=== PATIENT | female | born 1940 | race Caucasian/White ===

== ENCOUNTER 2020-04-22 18:48 | Inpatient (IN) | payer OTHER ==
[2020-04-22 19:00] VITALS: BMI 43.9
[2020-04-22] MEDS ORDERED: ASPIRIN 81 MG CHEWABLE TABLETS PO ONE (19:13)
--- OUTSIDE RECORDS SUMMARY | 2020-04-22 19:21 | XMS ---
:1940 Author Organization [facility] Support Name Relationship Address Phone RE Unavailable Unavailable Unavailable MOLLY DE JESUS DAUGHTER [address] [place] [address] Re-disclosure Warning The records that you are about to access may contain information from federally- assisted alcohol or drug abuse programs. If such information is present, then the following federally mandated warning applies: This information has been disclosed to you from records protected by federal confidentiality rules (42 CFR part 2). The federal rules prohibit you from making any further disclosure of this information unless further disclosure is expressly permitted by the written consent of the person to whom it pertains or as otherwise permitted by 42 CFR part 2. A general authorization for the release of medical or other information is NOT sufficient for this purpose. The Federal rules restrict any use of the information to criminally investigate or prosecute any alcohol or drug abuse patient.The records that you are about to access may contain highly sensitive health information, the redisclosure of which is protected by Article 27-F of the [facility] Public Health law. If you continue you may haveaccess to information: Regarding HIV / AIDS; Provided by facilities licensed or operated by the [facility] Office of Mental Health; or Provided by the [facility] Office for People With Developmental Disabilities. If such information is present, then the following [facility] mandated warning applies: This information has been disclosed to you from confidential records which are protected by state law. State law prohibits you from making any further disclosure of this information without the specific written consent of the person to whom it pertains, or as otherwise permitted by law. Any unauthorized further disclosure in violation of state law may result in a fine or correction sentence or both. A general authorization for the release of medical or other information is NOT sufficient authorization for further disclosure. Insurance Providers Payer name Policy type Policy ID Covered Covered constitution party's Policy P josefina / Coverage constitution party ID relationship to [facility] ormation type garcia MEDICAID [id number] SP [id number] [place] [id number] 800 HEALTHCARE (MEDICARE) [place] [id number] 4 HEALTHCARE (MEDICARE)
--- NOTE | 2020-04-22 19:31 | PDOC ---
Documentation entered by Leonila De La Garza SCRIBE, acting as scribe for Naya Lawson MD. Naya Lawson MD: This documentation has been prepared by the Frederic ferrell Brenda, SCRIBE, under my direction and personally reviewed by me in its entirety. I confirm that the documentation accurately reflects all work, treatment, procedures, and medical decision making performed by me. Attending Attestation - Resident Resident Name: Balaji Boudreaux - ED Attending Attestation I have performed the following: I have examined & evaluated the patient, The case was reviewed & discussed with the resident, I agree w/resident's findings & plan, Exceptions are as noted - HPI HPI: 04/22/20 19:26 This 80 yo female brought in by family member because this pt woke up this afternoon and experienced shortness of breath and midsternal chest pain PMH: Valve replacement in 2014 - Physicial Exam PE: 04/22/20 19:28 Obese 80 yo female with chest pain head ncat neck supple lungs no rales cvs [id number] abdomen protuberant skin warm and dry extremities LLE neuro alert and conversant - Medical Decision Making 04/22/20 19:30 medications metoprolol,ASA,lasix,losarten -swing manager is at [facility] 04/22/20 19:31 Ekg NSR @ 84 bpm, nonspecific ST and T wave abnormality 04/22/20 19:31 pulse ox =92% on room air 04/22/20 21:41 CXR CM,+congestion I spoke with her PCP Dr Arthur Arcos who requested to admit this pt to him for telemetry Concern for CHF,ACS,PNA,COVID plan - Lasix 40 mg IV, - covid swab, - pt took aspirin 325mg Consult with Dr Alvarez ordered Discharge - Discharge Information Problems reviewed: Yes Clinical Impression/Diagnosis: Shortness of breath, Chest pain - Follow up/Referral - Patient Discharge Instructions - Post Discharge Activity
--- NOTE | 2020-04-22 19:58 | PDOC ---
History of Present Illness - General History Source: Patient, Family Exam Limitations: No Limitations - History of Present Illness Initial Comments: 04/22/20 20:13 80F PMH PPM and valve replacement and repair (unsure which, [facility]) presenting with shortness of breath and pleuritic chest pain around the supraepigastric area described as band like and as if it were a muscle pull. Pt started experiencing symptoms after waking up from a nap, did not take anything for symptoms thinking it would resolve. Pain 7/10 now. Takes ASA 325 daily. Endorses mild nausea. Endorsing dry cough for about a week and SOB with walking. No sick contacts or group catholic. Denies f/c, vision/hearing changes, headache, numbness, tingling, weakness, lightheadedness. Has chronic swelling of the legs but is no worse than normal. No personal hx malignancy or VTEs. PCP Arthur Arcos. Accompanied by daughter. <Balaji Boudreaux - Last Filed: 04/25/20 02:42> <Naya Lawson - Last Filed: 04/27/20 17:26> - General Chief Complaint: Shortness of Breath Stated Complaint: DIFFICULTY BREATHING Time Seen by Provider: 04/22/20 19:07 Past History - Psycho-Social/Smoking History Smoking History: Unknown if ever smoked <Balaji Boudreaux - Last Filed: 04/25/20 02:42> <Naya Lawson - Last Filed: 04/27/20 17:26> - Medical History Allergies/Adverse Reactions: Allergies Allergy/AdvReac Type Severity Reaction Status Date / Time No Known Allergies Allergy Verified 04/27/20 11:46 Home Medications: Ambulatory Orders Aspirin/Calcium Carbonate [Pedrito Women's Aspirin Tablet] 1 each PO 04/23/20 Furosemide 20 mg PO 04/23/20 Metoprolol Succinate 100 mg PO 04/23/20 Review of Systems - Review of Systems Comments:: CONSTITUTIONAL: Denies F / C; Denies fatigue HEENT: Denies headache, lightheadedness, dizziness, changes in vision / hearing RESP: + SOB, MERLOS, dry cough CARD: + pleuritic chest pain GI: + Mild nausea. Denies V / D, abdominal pain, inability to tolerate PO : Denies dysuria NEURO: Denies numbness, tingling, weakness MSK: Denies back pain SKIN: Denies rashes <Balaji Boudreaux - Last Filed: 04/25/20 02:42> *Physical Exam - Vital Signs Last Vital Signs Temp Pulse Resp BP Pulse Ox 94 H 30 H 144/79 86 L 04/22/20 18:58 04/22/20 18:58 04/22/20 18:58 04/22/20 18:58 - Physical Exam GEN: NAD, comfortable. AAOx3. HEENT: NC/AT, EOMI, PERRL. No facial asymmetry. Moist mucous membranes. Normal voice. Supple neck w/ FROM. CV: S1/S2, RRR, + murmur LUNG: Nonlabored breathing at rest. CTAB, no wheezes, crackles, rales, rhonchi. GI: Soft, ndnt, +BS, no guarding, no rebound. MSK: 1+ b/l pitting edema (chronic per patient). No obvious deformities of all extremities. SKIN: Warm, dry, no rashes appreciated. PSYCH: Normal mood and affect. NEURO: Moving all extremities well. <Balaji Boudreaux - Last Filed: 04/25/20 02:42> - Vital Signs Last Vital Signs Temp Pulse Resp BP Pulse Ox 98.3 F 90 20 116/64 98 04/27/20 14:00 04/27/20 14:00 04/27/20 09:00 04/27/20 14:00 04/27/20 09:00 <Naya Lawson - Last Filed: 04/27/20 17:26> ED Treatment Course - LABORATORY CBC & Chemistry Diagram: 04/24/20 05:34 04/24/20 05:34 - RADIOLOGY Radiology Studies Ordered: Category Date Time Status CHEST X-RAY PORTABLE* [RAD] Stat Radiology 04/22/20 19:13 Taken - Medications Given in the ED: ED Medications Discontinued Medications Generic Name Dose Route Start Last Admin Trade Name Freq PRN Reason Stop Dose Admin Aspirin 162 mg 04/22/20 19:13 04/22/20 19:44 Asa - PO 04/22/20 19:14 Not Given ONCE ONE <Balaji Boudreaux - Last Filed: 04/25/20 02:42> - LABORATORY CBC & Chemistry Diagram: 04/25/20 06:05 04/26/20 06:15 - ADDITIONAL ORDERS Additional order review: 04/22/20 19:56 RBC 4.87 MCV 62.5 L MCHC 31.1 L RDW 17.1 H MPV 10.5 Neutrophils % 83.7 H Lymphocytes % 7.1 L Monocytes % 5.9 Eosinophils % 2.3 Basophils % 1.0 - Medications Given in the ED: ED Medications Discontinued Medications Generic Name Dose Route Start Last Admin Trade Name Freq PRN Reason Stop Dose Admin Acetaminophen 1,000 mg 04/23/20 04:07 04/23/20 04:42 Ofirmev Injection - IVPB 04/23/20 04:08 1,000 mg ONCE ONE Administration Acetaminophen 1,000 mg 04/23/20 21:15 04/24/20 21:17 Ofirmev Injection - IVPB 04/24/20 21:16 1,000 mg Q6H PRN Administration PAIN LEVEL 7-10 Aspirin 162 mg 04/22/20 19:13 04/22/20 19:44 Asa - PO 04/22/20 19:14 Not Given ONCE ONE Furosemide 40 mg 04/22/20 21:52 04/22/20 22:18 Lasix Injection - IVPUSH 04/22/20 21:53 40 mg ONCE ONE Administration <Naya Lawson - Last Filed: 04/27/20 17:26> Medical Decision Making - Medical Decision Making 80F PMH PPM and valve replacements/repair c/o pleuritic chest pain since 3pm today after nap in setting of one week of dry cough and MERLOS. DDX - ACS, CHF ex., PNA, Covid-19; consider PE, less likely AoD. CBC, CMP, Cardiac, Coags, Ferritin, LDH, BNP CXR EKG 19:08 HR 84 intervals wnl, left axis, sinus, TWI aVL, no persistent or contiguous HUMBERTO/D; poor R wave progression 04/22/20 20:25 CXR by ED interpretation appears to have b/l infiltrates Informed by RN that patient deSats to 80s and becomes tachypnic when moved to bedpan placed on NC with 100% SaO2 04/22/20 21:[address] Arcos - admit under him, requesting Dr. Alvarez for Cardiology 40mg lasix Pt has already taken 325mg ASA today labs reviewed elevated BNP initial trop neg. <Balaji Boudreaux - Last Filed: 04/25/20 02:42> Discharge - Discharge Information Problems reviewed: Yes - Admission Yes <Balaji Boudreaux - Last Filed: 04/25/20 02:42> <Naya Lawson - Last Filed: 04/27/20 17:26> - Discharge Information Clinical Impression/Diagnosis: Shortness of breath, Chest pain Condition: Fair
[2020-04-22 20:13] LABS: EOS % 2.3 % (0-4.5); HEMATOCRIT 30.4 % (32.4-45.2); HEMOGLOBIN 9.5 GM/dL (10.7-15.3); LYMPH % 7.1 % (8-40); MCHC 31.1 g/dl (32.0-36.0); MEAN CELL VOLUME 62.5 fl (80-96); MEAN PLT VOLUME 10.5 fl (7.5-11.1); MONO % 5.9 % (3.8-10.2); NEUT % 83.7 % (42.8-82.8); PLATELET COUNT 370 K/MM3 (134-434); RBC 4.87 M/mm3 (3.60-5.2); RDW 17.1 % (11.6-15.6); WHITE BLOOD COUNT 13.1 K/mm3 (4.0-10.0)
[2020-04-22 20:19] LABS: MCH 19.4 pg (25.7-33.7)
[2020-04-22 20:21] LABS: INR 1.4 (0.83-1.09); PROTHROMBIN TIME (PATIENT) 16.6 SEC (9.7-13.0)
[2020-04-22 20:42] LABS: ALBUMIN 3.4 g/dl (3.4-5.0); ALK PHOS 79 U/L (45-117); ANION GAP 8 MMOL/L (8-16); BILIRUBIN,TOTAL 0.6 mg/dL (0.2-1); BLOOD UREA NITROGEN 23.8 mg/dL (7-18); CALCIUM 9.3 mg/dL (8.5-10.1); CHLORIDE 106 mmol/L (98-107); CO2 27 mmol/L (21-32); GLUCOSE,RANDOM 101 mg/dL (74-106); SGOT/AST 20 U/L (15-37); SGPT/ALT 19 U/L (13-61); SODIUM 141 mmol/L (136-145); TOT PROT 6.9 g/dl (6.4-8.2)
[2020-04-22 21:03] LABS: EPI CELLS 19 /uL (0-25.1); HYALINE CASTS 1 /uL (0-3.1); URINE APPEARANCE CLOUDY; URINE BACTERIA 346 /uL (0-1359); URINE BILIRUBIN NEGATIVE (NEGATIVE); URINE COLOR YELLOW; URINE GLUCOSE (UA) NEGATIVE (NEGATIVE); URINE KETONE TRACE (NEGATIVE); URINE LEUK ESTERASE TRACE (NEGATIVE); URINE NITRITE NEGATIVE (NEGATIVE); URINE PROTEIN NEGATIVE (NEGATIVE); URINE UROBILINOGEN 0.2 mg/dL (0.2-1.0); URINE WBC 39 /uL (0-25.8)
[2020-04-22 21:13] LABS: LDH 288 U/L (84-246)
--- OUTSIDE RECORDS SUMMARY | 2020-04-22 21:49 | XMS ---
:1940 Author Organization [facility] Support Name Relationship Address Phone RE, RETIRED Unavailable Unavailable Unavailable RE Unavailable Unavailable Unavailable MOLLY DE JESUS DAUGHTER [address] [place] [address] Re-disclosure Warning The records that you are [...] is protected by Article 27-F of the [facility] Public Health law. If you continue you may haveaccess to information: Regarding HIV / AIDS; Provided by facilities licensed or operated by the [facility] Office of Mental Health; or Provided by the [facility] Office for People With Developmental Disabilities. If such information is present, then the following [facility] mandated warning applies: This information has been [...] law may result in a fine or fci sentence or both. A general authorization for the release of medical or other information is NOT sufficient authorization for further disclosure. Insurance Providers Payer name Policy type Policy ID Covered Covered libertarian's Policy P josefina / Coverage libertarian ID relationship to [facility] ormation type garcia [place] [id number] 800 HEALTHCARE (MEDICARE) MEDICAID [id number] [place] [id number] 4 HEALTHCARE (MEDICARE)
[2020-04-22] MEDS ORDERED: FUROSEMIDE 40 MG/4 ML INJECTABLE VIAL IVPUSH ONE (21:52)
[2020-04-22 22:03] LABS: URINE CRYSTALS FEW /hpf; URINE RBC 29.5 /uL (0-23.9)
[2020-04-22] MEDS ORDERED: FUROSEMIDE 40 MG/4 ML INJECTABLE VIAL ONE (22:13)
[2020-04-23] MEDS ORDERED: ACETAMINOPHEN INJECTION 100 ML IVPB ONE (04:07)
[2020-04-23] MEDS ORDERED: ACETAMINOPHEN 1000 MG/100 ML VIAL (NON FORMULARY) IVPB ONE (04:07)
[2020-04-23 07:00] LABS: ALBUMIN 3.2 g/dl (3.4-5.0); ALK PHOS 79 U/L (45-117); ANION GAP 10 MMOL/L (8-16); BILIRUBIN,TOTAL 0.8 mg/dL (0.2-1); BLOOD UREA NITROGEN 21.8 mg/dL (7-18); CALCIUM 9.2 mg/dL (8.5-10.1); CHLORIDE 102 mmol/L (98-107); CO2 29 mmol/L (21-32); GLUCOSE,RANDOM 103 mg/dL (74-106); POTASSIUM 3.9 mmol/L (3.5-5.1); SGOT/AST 14 U/L (15-37); SGPT/ALT 17 U/L (13-61); SODIUM 141 mmol/L (136-145); TOT PROT 6.7 g/dl (6.4-8.2)
[2020-04-23] MEDS ORDERED: FERROUS SO4 325 MG TABLET (FP) ONE ×2 (08:02→12:26)
[2020-04-23] MEDS ORDERED: ASPIRIN 325 MG ENTERIC COATED TABLET (FP) ONE (08:02)
[2020-04-23] MEDS ORDERED: FUROSEMIDE 40 MG/4 ML INJECTABLE VIAL ONE (08:02)
[2020-04-23] MEDS ORDERED: PANTOPRAZOLE 40 MG TABLET ONE (08:02)
[2020-04-23] MEDS: FERROUS SO4 325 MG TABLET (FP) PO SCH ×3 (08:03→17:14)
[2020-04-23] MEDS: FUROSEMIDE 40 MG/4 ML INJECTABLE VIAL IVPUSH SCH (09:07)
[2020-04-23] MEDS: PANTOPRAZOLE 40 MG TABLET PO SCH (09:07)
[2020-04-23] MEDS: ASPIRIN 325 MG ENTERIC COATED TABLET (FP) PO SCH (09:07)
--- NOTE | 2020-04-23 09:59 | EKG ---
Test Reason : Blood Pressure : / mmHG Vent. Rate : 081 BPM Atrial Rate : 081 BPM P-R Int : 164 ms QRS Dur : 120 ms QT Int : 400 ms P-R-T Axes : 067 -46 108 degrees QTc Int : 464 ms POOR DATA QUALITY, INTERPRETATION MAY BE ADVERSELY AFFECTED NORMAL SINUS RHYTHM LEFT AXIS DEVIATION CANNOT RULE OUT INFERIOR INFARCT , AGE UNDETERMINED ANTERIOR INFARCT , AGE UNDETERMINED ABNORMAL ECG WHEN COMPARED WITH ECG OF 22-APR-2020 19:08, PREMATURE SUPRAVENTRICULAR COMPLEXES ARE NO LONGER PRESENT Confirmed by Von Engel ([id number]) on 04/23/2020 9:58:38 AM Referred By: Confirmed By:Von Engel
--- NOTE | 2020-04-23 09:59 | EKG ---
Test Reason : Blood Pressure : / mmHG Vent. Rate : 084 BPM Atrial Rate : 084 BPM P-R Int : 166 ms QRS Dur : 116 ms QT Int : 380 ms P-R-T Axes : 068 -47 099 degrees QTc Int : 449 ms SINUS RHYTHM WITH PREMATURE SUPRAVENTRICULAR COMPLEXES LEFT AXIS DEVIATION NONSPECIFIC ST AND T WAVE ABNORMALITY ABNORMAL ECG NO PREVIOUS ECGS AVAILABLE Confirmed by Von Engel ([id number]) on 04/23/2020 9:59:26 AM Referred By: Confirmed By:Von Engel
[2020-04-23 11:53] LABS: BASO % 1.1 % (0-2.0); EOS % 2.8 % (0-4.5); HEMOGLOBIN 9.4 GM/dL (10.7-15.3); LYMPH % 7.2 % (8-40); MCHC 31.3 g/dl (32.0-36.0); MEAN CELL VOLUME 62.7 fl (80-96); MEAN PLT VOLUME 10.3 fl (7.5-11.1); MONO % 5.7 % (3.8-10.2); NEUT % 83.2 % (42.8-82.8); PLATELET COUNT 322 K/MM3 (134-434); RBC 4.78 M/mm3 (3.60-5.2); RDW 17.3 % (11.6-15.6); WHITE BLOOD COUNT 11.2 K/mm3 (4.0-10.0)
[2020-04-23 11:54] LABS: MCH 19.6 pg (25.7-33.7)
--- NOTE | 2020-04-23 12:15 | ECHO ---
Name: SCAVONE, RIC Exam:Adult Echocardiogram Study Date: 04/23/2020 09:20 AM Age: 80 yrs Reason For Study: CHF Height: 62 in Weight: 240 lb BSA: 2.1 m2 MMode/2D Measurements & Calculations IVSd: 1.1 cm Ao root diam: 2.6 cm LVIDd: 4.5 cm LA dimension: 4.6 cm LVIDs: 2.8 cm ACS: 1.2 cm LVPWd: 0.86 cm EDV(Teich): 94.0 ml LVOT diam: 2.0 cm ESV(Temegan): 29.3 ml LAV(MOD-sp2): 74.8 ml TAPSE: 1.4 cm LAV(MOD-sp4): 86.0 ml RV S Zaid: 11.0 cm/sec LAV(MOD-bp): 82.0 ml LAV(MOD-bp) Indexed: 39.7 ml/m2 LAV (MOD-bp): 108.0 ml Doppler Measurements & Calculations MVA(VTI): 1.4 cm2 MV E max zaid: 170.4 cm/sec MV V2 max: 187.2 cm/sec MV A max zaid: 141.1 cm/sec MV max P.0 mmHg MV E/A: 1.2 MV V2 mean: 129.6 cm/sec MV dec time: 0.33 sec MV mean P.4 mmHg MV V2 VTI: 53.9 cm MV P1/2t max zaid: 172.2 cm/sec Ao V2 max: 260.1 cm/sec MV P1/2t: 92.8 msec Ao max P.1 mmHg MVA(P1/2t): 2.4 cm2 Ao V2 mean: 167.1 cm/sec Ao mean P.3 mmHg MV dec slope: 543.6 cm/sec2 Ao V2 VTI: 47.1 cm STARR(I,D): 1.6 cm2 STARR(V,D): 1.6 cm2 LV V1 max P.4 mmHg MR max zaid: 501.3 cm/sec LV V1 mean P.5 mmHg MR max P.5 mmHg LV V1 max: 135.7 cm/sec LV V1 mean: 86.8 cm/sec LV V1 VTI: 24.4 cm SV(LVOT): 75.9 ml TR max zaid: 385.5 cm/sec TR max P.5 mmHg PA V2 max: 126.2 cm/sec Med Peak E' Zaid: 7.4 cm/sec PA max P.4 mmHg Med E/e': 23.1 Lat Peak E' Zaid: 7.9 cm/sec PA acc slope: 460.0 cm/sec2 Lat E/e': 21.6 PA acc time: 0.11 sec PA pr(Accel): 28.3 mmHg Pulm Sys Zaid: 49.9 cm/sec Pulm Rolle Zaid: 44.4 cm/sec Pulm S/D: 1.1 Tech Comments TDS due to body habitus. Patient scanned sitting up. Procedure A complete two-dimensional transthoracic echocardiogram was performed (2D, M-mode, Doppler and color flow Doppler). Left Ventricle The left ventricular size, thickness and function are normal. Right Ventricle There is a pacemaker lead in the right ventricle. The right ventricle is mildly dilated. The right ve ntricular systolic function is mildly reduced. Atria The left atrium is moderately dilated. The right atrium is mildly dilated. Mitral Valve Calcified mitral apparatus. Doming of the anterior mitral valve leaflet suggesting past rheumatic dis ease. There is moderate mitral stenosis. There is mild mitral regurgitation. Tricuspid Valve The tricuspid valve is normal in structure and function. There is moderate tricuspid regurgitation. A ssuming the RA pressure is 10 mmHg. Right ventricular systolic pressure is elevated at 69 mmhg. There is benedicto re pulmonary hypertension. Aortic Valve There is a bioprosthetic aortic valve. Normally functioning prosthetic aortic valve. Pulmonic Valve The pulmonic valve is normal in structure and function. Great Vessels There is aortic root sclerosis/calcification. Pericardium/Pleura There is no pericardial effusion. Interpretation Summary The left ventricular size, thickness and function are normal The right ventricle is mildly dilated. The right ventricular systolic function is mildly reduced. Doming of the anterior mitral valve leaflet suggesting past rheumatic disease. There is moderate mitr al stenosis. There is moderate tricuspid regurgitation. There is severe pulmonary hypertension. Normally functioning prosthetic aortic valve. Von Engel 04/23/2020 12:15 PM
[2020-04-23] MEDS ORDERED: NITROFURANTOIN MACROCRYSTAL 50 MG CAPSULE (FP) ONE (12:26)
[2020-04-23] MEDS: NITROFURANTOIN MACROCRYSTAL 50 MG CAPSULE (FP) PO SCH ×2 (12:27→19:31)
--- NOTE | 2020-04-23 13:30 | HP ---
Admitting History and Physical - Admission Chief Complaint: pt c/o of chest oain ? epigastric and sob felt like heaviness on chest started last pm. denies no other complaints taking h/o of pt in account pt sent to [facility] cxr chf lasix 40 given feels better but still c/o epigastric pain scale despite ppi6 History Source: Patient, Family Member Limitations to Obtaining History: Poor Historian - Past Medical History Cardiovascular: Yes: Mitral Stenosis, Other (pacemaker m/v prothetic valve sx mas on echo rt vent prees high no ef noted ?hfpef) Pulmonary: Yes: Other (chf) Reproductive: Yes: Postmenopausal ...: No ENT: Yes: Other (catarract sx) - Past Surgical History Past Surgical History: Yes: Cataract Removal, Permanent Pacemaker, Valve Replacement - Smoking History Smoking history: Unknown if ever smoked Have you smoked in the past 12 months: No - Alcohol/Substance Use Hx Alcohol Use: No History of Substance Use: reports: None - Social History Usual Living Arrangement: Yes: With Child Do you think of yourself as: Straight/Heterosexual ADL: Support Services History of Recent Travel: No Home Medications - Allergies Allergies/Adverse Reactions: Allergies Allergy/AdvReac Type Severity Reaction Status Date / Time No Allergy Information Allergy Verified 04/22/20 23:59 Available - Home Medications Home Medications: Ambulatory Orders Aspirin/Calcium Carbonate [Pedrito Women's Aspirin Tablet] 1 each PO 04/23/20 Furosemide 20 mg PO 04/23/20 Metoprolol Succinate 100 mg PO 04/23/20 Family Medical History Family History: Unremarkable Review of Systems - Review of Systems Constitutional: reports: Other (sob epgastric pain) Eyes: reports: No Symptoms HENT: reports: No Symptoms, Ocular Prosthesis Neck: reports: No Symptoms Cardiovascular: reports: Chest Pain Respiratory: reports: SOB on Exertion Gastrointestinal: reports: No Symptoms Genitourinary: reports: No Symptoms Breasts: reports: No Symptoms Reported Musculoskeletal: reports: Back Pain Integumentary: reports: No Symptoms Neurological: reports: No Symptoms Endocrine: reports: No Symptoms, Unexplained Weight Gain Psychiatric: reports: No Symptoms Physical Examination Vital Signs: Vital Signs Temperature 98.1 F 04/23/20 12:00 Pulse Rate 75 04/23/20 12:29 Respiratory Rate 21 H 04/23/20 12:29 Blood Pressure 119/48 L 04/23/20 12:29 O2 Sat by Pulse Oximetry (%) 100 04/23/20 12:29 Constitutional: Yes: No Distress Eyes: Yes: WNL HENT: Yes: WNL Neck: Yes: WNL Cardiovascular: Yes: WNL Respiratory: Yes: Rales Gastrointestinal: Yes: WNL ...Rectal Exam: Yes: Deferred Renal/: Yes: WNL Breast(s): Yes: WNL Musculoskeletal: Yes: Back Pain Extremities: Yes: WNL Edema: No Peripheral Pulses WNL: Yes Peripheral Pulses: Left Radial: 2+, Right Radial: 2+, Left Doralis Pedis: 2+, Right Dorsalis Pedis: 2+, Left Femoral: 1+, Right Femoral: 1+ Integumentary: Yes: WNL Neurological: Yes: Confusion ...Motor Strength: WNL Psychiatric: Yes: WNL Labs: CBC, BMP 04/23/20 11:20 04/23/20 05:40 Problem List - Problems (1) Pacemaker Code(s): Z95.0 - PRESENCE OF CARDIAC PACEMAKER (2) Vascular insufficiency of limb Code(s): I99.8 - OTHER DISORDER OF CIRCULATORY SYSTEM (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 egd out pt place pt on lipitor 80 daily was not on it??? antibiotics for uti ?strees test resting if needed
--- NOTE | 2020-04-23 13:41 | CON.CARD ---
Consult Consult Specialty:: cardiology Referred by:: medicine Reason for Consultation:: chest pain - History of Present Illness Chief Complaint: chest pain History of Present Illness: 80F h/o ppm, bio AVR, MV repair at [facility] [place], afib not on anticoagulatio p/w shortness of breath, chest pain. She saw Dr. Flores for cardio last in 2016, has been following at [facility] [place] for ppm remotely but says she has not gone recently in person. Complains of worsening dyspnea, chest pain this morning but endorses shortness of breath with exertion for at least the last few months, possibly longer. no palps, syncope, dizziness - Past Medical History Cardio/Vascular: Yes: Mitral Stenosis, Other (pacemaker m/v prothetic valve sx mas on echo rt vent prees high no ef noted ?hfpef) Pulmonary: Yes: Other (chf) ...: No ENT: Yes: Other (catarract sx) - Past Surgical History Past Surgical History: Yes: Cataract Removal, Permanent Pacemaker, Valve Replacement - Alcohol/Substance Use Hx Alcohol Use: No History of Substance Use: reports: None - Smoking History Smoking history: Unknown if ever smoked Have you smoked in the past 12 months: No - Social History ADL: Support Services History of Recent Travel: No Home Medications - Allergies Allergies/Adverse Reactions: Allergies Allergy/AdvReac Type Severity Reaction Status Date / Time No Allergy Information Allergy Verified 04/22/20 23:59 Available - Home Medications Home Medications: Ambulatory Orders Aspirin/Calcium Carbonate [Pedrito Women's Aspirin Tablet] 1 each PO 04/23/20 Furosemide 20 mg PO 04/23/20 Metoprolol Succinate 100 mg PO 04/23/20 Family Medical History Family History: Unremarkable Review of Systems - Review of Systems Constitutional: reports: No Symptoms Eyes: reports: No Symptoms HENT: reports: No Symptoms Neck: reports: No Symptoms Cardiovascular: reports: No Symptoms Respiratory: reports: No Symptoms Gastrointestinal: reports: No Symptoms Genitourinary: reports: No Symptoms Musculoskeletal: reports: No Symptoms Integumentary: reports: No Symptoms Neurological: reports: No Symptoms Endocrine: reports: No Symptoms Hematology/Lymphatic: reports: No Symptoms Psychiatric: reports: No Symptoms Vital Signs: Vital Signs Temperature 98.1 F 04/23/20 12:00 Pulse Rate 75 04/23/20 12:29 Respiratory Rate 21 H 09/23/20 12:29 Blood Pressure 119/48 L 04/23/20 12:29 O2 Sat by Pulse Oximetry (%) 100 04/23/20 12:29 Constitutional: Yes: No Distress, Calm Eyes: Yes: Conjunctiva Clear, EOM Intact HENT: Yes: Atraumatic, Normocephalic Neck: Yes: Supple, Trachea Midline Respiratory: Yes: Regular, On Nasal O2, Rales Gastrointestinal: Yes: Normal Bowel Sounds, Soft Cardiovascular: Yes: Regular Rate and Rhythm JVD: No PMI: Non-Displaced Heart Sounds: Yes: S1, S2 Murmur: Yes: Systolic Murmur, Diastolic Murmur Edema: Yes Edema: LLE: 1+, RLE: 1+ Integumentary: No: Jaundice Neurological: Yes: Alert, Oriented Psychiatric: No: Agitated - Other Data Labs, Other Data: CBC, BMP 04/23/20 11:20 04/23/20 05:40 INR, PTT INR 1.40 (0.83-1.09) H 04/22/20 19:56 Troponin, BNP 04/22/20 04/22/20 04/23/20 19:56 19:56 05:40 Troponin I < 0.02 < 0.02 B-Natriuretic Peptide 3932.7 H Troponin, BNP 04/22/20 04/22/20 04/23/20 19:56 19:56 05:40 Troponin I < 0.02 < 0.02 B-Natriuretic Peptide 3932.7 H Assessment/Plan EKG: sinus, LAD, old anterior infarct, old inferior infarct echo 04/2020 nl LV function, mildly dilated RV with mildly reduced functio, doming of anterior MV leaflet suggests past rheumatic disease, mod MS, mod TR, severe pulm HTN, normally functioning bioprosthetic valve 80F h/o ppm, bio AVR, MV repair at [facility] [place], afib not on anticoagulation p/w shortness of breath, chest pain shortness of breath, chest pain, acute diastolic heart failure exacerbation -trop neg x 2 stable EKG - less likely ACS - echo here with nl LV function with severe pulmonary hypertension, RV dysfunction, moderate MS - cont IV lasix for CHF exacerbation moderate MS, severe pulm HTN, s/p bio AVR - history of severe , severe MR and moderate MS; s/p bio AVR, MV repair in 2014 at [facility] [place] - has several month history of dyspnea on exertion with moderate MS and severe pulm HTN on echo - has not followed up with cardiology since 2016 - normal bio AVR function - cont IV lasix afib - noted on ppm in the past - refused anticoagulation - cont aspirin s/p ppm - outpatient follow up
[2020-04-23] MEDS ORDERED: PT OWN MED DRAWER 7, Y5N ONE (19:28)
[2020-04-23] MEDS: ATORVASTATIN CA 80 MG TABLET (FP) PO SCH (21:08)
[2020-04-23] MEDS: ACETAMINOPHEN 1000 MG/100 ML VIAL (NON FORMULARY) IVPB PRN (21:51)
[2020-04-24] MEDS ORDERED: PT OWN MED DRAWER 7, Y5N ONE ×5 (01:05→17:59)
[2020-04-24] MEDS: NITROFURANTOIN MACROCRYSTAL 50 MG CAPSULE (FP) PO SCH ×5 (01:06→23:18)
[2020-04-24 06:37] LABS: EOS % 4.8 % (0-4.5); HEMATOCRIT 28.7 % (32.4-45.2); HEMOGLOBIN 8.9 GM/dL (10.7-15.3); LYMPH % 10.4 % (8-40); MCHC 31.1 g/dl (32.0-36.0); MONO % 7.7 % (3.8-10.2); NEUT % 76.1 % (42.8-82.8); PLATELET COUNT 302 K/MM3 (134-434); RBC 4.63 M/mm3 (3.60-5.2); RDW 16.7 % (11.6-15.6); WHITE BLOOD COUNT 10.6 K/mm3 (4.0-10.0)
[2020-04-24 06:42] LABS: MCH 19.2 pg (25.7-33.7)
[2020-04-24 07:09] LABS: CALCIUM 8.9 mg/dL (8.5-10.1); CREATININE 1.1 mg/dL (0.55-1.3); POTASSIUM 3.9 mmol/L (3.5-5.1)
[2020-04-24] MEDS: FERROUS SO4 325 MG TABLET (FP) PO SCH ×3 (09:01→18:09)
--- NOTE | 2020-04-24 10:45 | PN ---
Progress Note, Physician Chief Complaint: rt cvat ?uti r/o stones oob miralax pulm consultr o2 use at home doubt good apetite less sob no cp tylenol for pain scale 7 rtcvat - Current Medication List Current Medications: Active Medications Acetaminophen (Ofirmev Injection -) 1,000 mg IVPB Q6H PRN PRN Reason: PAIN LEVEL 6-10 Stop: 04/24/20 21:16 Last Admin: 04/23/20 21:51 Dose: 1,000 mg Documented by: Aspirin (Ecotrin -) 325 mg PO DAILY [facility] Last Admin: 04/23/20 09:07 Dose: 325 mg Documented by: Atorvastatin Calcium (Lipitor -) 80 mg PO HS [facility] Last Admin: 04/23/20 21:08 Dose: 80 mg Documented by: Ferrous Sulfate (Feosol -) 325 mg PO TIDCM [facility] Last Admin: 04/23/20 17:14 Dose: 325 mg Documented by: Furosemide (Lasix Injection -) 40 mg IVPUSH DAILY [facility] Last Admin: 04/23/20 09:07 Dose: 40 mg Documented by: Nitrofurantoin Macrocrystals (Macrodantin -) 50 mg PO Q6HPO [facility] Last Admin: 04/24/20 05:20 Dose: 50 mg Documented by: Pantoprazole Sodium (Protonix -) 40 mg PO DAILY [facility] Last Admin: 04/23/20 09:07 Dose: 40 mg Documented by: - Objective Vital Signs: Vital Signs Temperature 98.8 F 04/24/20 05:09 Pulse Rate 72 04/24/20 05:09 Respiratory Rate 18 04/24/20 05:09 Blood Pressure 135/65 04/24/20 05:09 O2 Sat by Pulse Oximetry (%) 98 04/24/20 05:09 Constitutional: Yes: No Distress Eyes: Yes: WNL HENT: Yes: WNL Neck: Yes: WNL Cardiovascular: Yes: WNL Respiratory: Yes: SOB on Exertion Gastrointestinal: Yes: WNL ...Rectal Exam: Yes: Deferred Genitourinary: Yes: CVA Tenderness - Right, Urethral Discharge Musculoskeletal: Yes: Back Pain Extremities: Yes: WNL Edema: No Peripheral Pulses WNL: Yes Peripheral Pulses: Left Radial: 2+, Right Radial: 2+, Left Doralis Pedis: 2+, Right Dorsalis Pedis: 2+, Left Femoral: 2+, Right Femoral: 2+ Integumentary: Yes: WNL Neurological: Yes: WNL ...Motor Strength: WNL Psychiatric: Yes: WNL Labs: CBC, BMP 04/24/20 05:34 04/24/20 05:34 INR, PTT INR 1.40 (0.83-1.09) H 04/22/20 19:56 Assessment/Plan pulm for o2 use at home oob tylenol card f/u for ?stress test cxr later to see resolution chg
[2020-04-24] MEDS: FUROSEMIDE 40 MG/4 ML INJECTABLE VIAL IVPUSH SCH (11:01)
[2020-04-24] MEDS: PANTOPRAZOLE 40 MG TABLET PO SCH (11:02)
--- NOTE | 2020-04-24 11:09 | PN ---
Progress Note (short form) - Note Progress Note: Chief Complaint: chest pain History of Present Illness: 80F h/o ppm, bio AVR, [place] [facility] [place] not [place] anticoagulatio p/w shortness of breath, chest pain. She saw Dr. Flores for cardio last in 2015, has been following at [facility] ppm [place] but says she has not gone recently in person. Complains of worsening dyspnea, chest pain this morning but endorses shortness of breath with exertion for at least the last few months, possibly longer. no palps, syncope, dizziness still sob this am, a little better, no cp palps dizzy Current Medications Generic Name Dose Route Start Last Admin Trade Name Freq PRN Reason Stop Dose Admin Acetaminophen 1,000 mg 04/23/20 21:15 04/23/20 21:51 Ofirmev Injection - IVPB 04/24/20 21:16 1,000 mg Q6H PRN Administration PAIN LEVEL 7-10 Acetaminophen 500 mg 04/24/20 10:46 Tylenol - PO Q6H PRN PAIN 4-6 Aspirin 325 mg 04/23/20 10:00 04/23/20 09:07 Ecotrin - PO 325 mg DAILY [facility] Administration Atorvastatin Calcium 80 mg 04/23/20 22:00 04/23/20 21:08 Lipitor - PO 80 mg HS [facility] Administration Ferrous Sulfate 325 mg 04/23/20 08:00 04/24/20 09:01 Feosol - PO 325 mg TIDCM [facility] Administration Furosemide 40 mg 04/23/20 10:00 04/24/20 11:01 Lasix Injection - IVPUSH 40 mg DAILY [facility] Administration Nitrofurantoin Macrocrystals 50 mg 04/23/20 12:00 04/24/20 05:20 Macrodantin - PO 50 mg Q6HPO [facility] Administration Pantoprazole Sodium 40 mg 04/23/20 10:00 04/24/20 11:02 Protonix - PO 40 mg DAILY [facility] Administration Polyethylene Glycol 17 gm 04/25/20 10:00 Miralax (For Daily Use) - PO DAILY [facility] Vital Signs (72 hours) 04/22/20 04/22/20 04/23/20 18:58 20:35 03:29 Temperature Pulse Rate 94 H Pulse Rate [ Left Radial] Respiratory 30 H Rate Blood Pressure 144/79 Blood Pressure [Left Arm] O2 Sat by Pulse 86 L 100 100 Oximetry (%) 04/23/20 04/23/20 04/23/20 06:06 08:00 09:04 Temperature 98.2 F 98.1 F Pulse Rate Pulse Rate [ 77 58 L Left Radial] Respiratory 22 H 18 18 Rate Blood Pressure Blood Pressure 119/55 L 128/50 L [Left Arm] O2 Sat by Pulse 95 100 100 Oximetry (%) 04/23/20 04/23/20 04/23/20 12:00 12:29 14:49 Temperature 98.1 F 98 F Pulse Rate 78 Pulse Rate [ 70 75 Left Radial] Respiratory 21 H 20 Rate Blood Pressure 129/75 Blood Pressure 119/48 L 119/48 L [Left Arm] O2 Sat by Pulse 100 100 Oximetry (%) 04/23/20 04/23/20 04/23/20 15:20 15:46 17:41 Temperature 98.2 F 98.7 F Pulse Rate 78 82 Pulse Rate [ Left Radial] Respiratory 22 H 20 Rate Blood Pressure 137/78 136/75 Blood Pressure [Left Arm] O2 Sat by Pulse 98 98 Oximetry (%) 04/23/20 04/23/20 04/24/20 20:04 21:00 02:00 Temperature 98.8 F 98.0 F Pulse Rate 89 83 Pulse Rate [ Left Radial] Respiratory 18 18 Rate Blood Pressure 113/65 135/70 Blood Pressure [Left Arm] O2 Sat by Pulse 97 97 93 L Oximetry (%) 04/24/20 05:09 Temperature 98.8 F Pulse Rate 72 Pulse Rate [ Left Radial] Respiratory 18 Rate Blood Pressure 135/65 Blood Pressure [Left Arm] O2 Sat by Pulse 98 Oximetry (%) Constitutional: Yes: No Distress, Calm Eyes: Yes: Conjunctiva Clear Neck: Yes: Supple, Trachea Midline Respiratory: Yes: Regular, On Nasal O2, Rales Gastrointestinal: Yes: Normal Bowel Sounds, Soft Cardiovascular: Yes: Regular Rate and Rhythm JVD: No Heart Sounds: Yes: S1, S2 Murmur: Yes: Systolic Murmur, Diastolic Murmur Edema: Yes Edema: LLE: 1+, RLE: 1+ Integumentary: No: Jaundice Neurological: Yes: Alert, Oriented Psychiatric: No: Agitated - Other Data Labs, Other Data: CBC, BMP 04/24/20 05:34 04/24/20 05:34 Assessment/Plan tele: sr, occ pacing EKG: sinus, LAD, old anterior infarct, old inferior infarct echo 04/2020 nl LV function, mildly dilated RV with mildly reduced functio, doming of anterior MV leaflet suggests past rheumatic disease, mod MS, mod TR, severe pulm HTN, normally functioning bioprosthetic valve 80F h/o ppm, bio AVR, [place] [facility] [place]ib not on anticoagulation p/w shortness of breath, chest pain shortness of breath, chest pain, acute diastolic heart failure exacerbation -trop neg x 2 stable EKG - less likely ACS - echo here with nl LV function with severe pulmonary hypertension, RV dysfunction, moderate MS - cont IV lasix for CHF exacerbation, daily chem7 moderate MS, severe pulm HTN, s/p bio AVR - history of severe , severe MR and moderate MS; s/p bio AVR, MV repair in 2014 [place] [facility] [place] - has several month history of dyspnea on exertion with moderate MS and severe pulm HTN on echo - has not followed up with cardiology since 2016 - normal bio AVR function - cont IV lasix, will need repeat echo as outpt when euvolemic to reassess valves afib - noted on ppm in the past - refused anticoagulation - cont aspirin s/p ppm - outpatient follow up
[2020-04-24] MEDS: ASPIRIN 325 MG ENTERIC COATED TABLET (FP) PO SCH (11:18)
--- NOTE | 2020-04-24 11:52 | CON.PULM ---
Consult Consult Specialty:: PULMONARY Referred by:: Dr Arcos Reason for Consultation:: shortness of breath - History of Present Illness Chief Complaint: shortness of breath History of Present Illness: 80yo female with h/o LV diastolic dysfunction, atrial fibrillation, h/o bioAVR, MV repair, pulmonary HTN, h/o PPM who was admitted with worsening shortness of breath. Had reported chest pain but denies currently, c/o more right back pain. States back pain is limiting her breathing. No cough or wheezing. No fevers, chills or sweats. No history of asthma or COPD, she is a never smoker. - History Source History Provided By: Patient, Medical Record Limitations to Obtaining History: No Limitations - Past Medical History Cardio/Vascular: Yes: Mitral Stenosis, Other (pacemaker m/v prothetic valve sx mas on echo rt vent prees high no ef noted ?hfpef) Pulmonary: Yes: Other (chf) ...: No ENT: Yes: Other (catarract sx) - Past Surgical History Past Surgical History: Yes: Cataract Removal, Permanent Pacemaker, Valve Replacement - Alcohol/Substance Use Hx Alcohol Use: No History of Substance Use: reports: None - Smoking History Smoking history: Unknown if ever smoked Have you smoked in the past 12 months: No - Social History ADL: Support Services History of Recent Travel: No Home Medications - Allergies Allergies/Adverse Reactions: Allergies Allergy/AdvReac Type Severity Reaction Status Date / Time No Allergy Information Allergy Verified 04/22/20 23:59 Available - Home Medications Home Medications: Ambulatory Orders Aspirin/Calcium Carbonate [[facility] Women's Aspirin Tablet] 1 each PO 04/23/20 Furosemide 20 mg PO 04/23/20 Metoprolol Succinate 100 mg PO 04/23/20 Family Medical History Family History: Unremarkable Review of Systems - Review of Systems Constitutional: denies: Chills, Fever Eyes: denies: Recent Change in Vision HENT: denies: Nasal Congestion, Throat Pain Neck: denies: Stiffness, Tenderness Cardiovascular: reports: Shortness of Breath. denies: Chest Pain Respiratory: reports: SOB on Exertion. denies: Cough, Hemoptysis, Wheezing Gastrointestinal: denies: Abdominal Pain, Nausea, Vomiting Genitourinary: denies: Dysuria, Hematuria Musculoskeletal: reports: Back Pain Neurological: denies: Dizziness, Headache Endocrine: denies: Unexplained Weight Loss Physical Exam Vital Sings: Vital Signs Temperature 98 F 04/24/20 09:00 Pulse Rate 79 04/24/20 09:00 Respiratory Rate 20 04/24/20 09:00 Blood Pressure 128/80 04/24/20 09:00 O2 Sat by Pulse Oximetry (%) 96 04/24/20 09:00 Constitutional: Yes: Calm Eyes: Yes: Conjunctiva Clear, EOM Intact HENT: Yes: Atraumatic, Normocephalic Neck: Yes: Supple, Trachea Midline Cardiovascular: Yes: Regular Rate and Rhythm Respiratory: Yes: Diminished (at bases) ...Clubbing: No Gastrointestinal: Yes: Normal Bowel Sounds, Soft. No: Tenderness Edema: No Neurological: Yes: Alert, Oriented Labs: CBC, BMP 04/24/20 05:34 04/24/20 05:34 Imaging - Results Chest X-ray: Report Reviewed, Image Reviewed (pulmonary vascular congestion) Assessment/Plan Acute on Chronic Diastolic Heart Failure Pulmonary HTN Atrial Fibrillation s/p PPM h/o bio AVR h/o MV repair - IV lasix - monitor urine output, creatinine - daily weights - rate control - pain control - monitor CXR with diuresis - when ready for discharge, check ambulatory SpO2 on room air to assess for home O2 - DVT prophylaxis Thank you for this consult Edilberto Bush MD
[2020-04-24] MEDS: LIDOCAINE 5% TOPICAL PATCH TP SCH (12:45)
[2020-04-24] MEDS: ACETAMINOPHEN 500 MG TABLET (FP) PO PRN (12:48)
[2020-04-24] MEDS: ATORVASTATIN CA 80 MG TABLET (FP) PO SCH (21:15)
[2020-04-24] MEDS: LIDOCAINE PATCH REMOVAL MC SCH (21:16)
[2020-04-24] MEDS: ACETAMINOPHEN 1000 MG/100 ML VIAL (NON FORMULARY) IVPB PRN (21:17)
[2020-04-25] MEDS: ACETAMINOPHEN 500 MG TABLET (FP) PO PRN ×3 (03:15→20:21)
[2020-04-25] MEDS: NITROFURANTOIN MACROCRYSTAL 50 MG CAPSULE (FP) PO SCH ×3 (05:09→17:28)
--- NOTE | 2020-04-25 06:01 | PN ---
Progress Note, Physician Chief Complaint: denies CP, SOB, palps Feeling "little" better TELE: AF, controlled Says she is urinating "alot" Is/Os do not appear to be accurate. History of Present Illness: bio AVR MV repair AF Acute diastolic CHF Denies h/o smoking - Current Medication List Current Medications: Active Medications Acetaminophen (Tylenol -) 500 mg PO Q6H PRN PRN Reason: PAIN 4-6 Last Admin: 04/25/20 03:15 Dose: 500 mg Documented by: Aspirin (Ecotrin -) 325 mg PO DAILY [facility] Last Admin: 04/24/20 11:18 Dose: 325 mg Documented by: Atorvastatin Calcium (Lipitor -) 80 mg PO HS [facility] Last Admin: 04/24/20 21:15 Dose: 80 mg Documented by: Ferrous Sulfate (Feosol -) 325 mg PO TIDCM [facility] Last Admin: 04/24/20 18:09 Dose: 325 mg Documented by: Furosemide (Lasix Injection -) 40 mg IVPUSH DAILY [facility] Last Admin: 04/24/20 11:01 Dose: 40 mg Documented by: Lidocaine (Lidoderm Patch -) 1 patch TP DAILY [facility] Last Admin: 04/24/20 12:45 Dose: 1 patch Documented by: Miscellaneous (Lidoderm Patch Removal) 1 each MC DAILY@2200 [facility] Last Admin: 04/24/20 21:16 Dose: 1 each Documented by: Nitrofurantoin Macrocrystals (Macrodantin -) 50 mg PO Q6HPO [facility] Last Admin: 04/25/20 05:09 Dose: 50 mg Documented by: Pantoprazole Sodium (Protonix -) 40 mg PO DAILY [facility] Last Admin: 04/24/20 11:02 Dose: 40 mg Documented by: Polyethylene Glycol (Miralax (For Daily Use) -) 17 gm PO DAILY [facility] - Objective Vital Signs: Vital Signs Temperature 98.8 F 04/25/20 05:07 Pulse Rate 73 04/25/20 05:07 Respiratory Rate 18 04/25/20 05:07 Blood Pressure 139/61 04/25/20 05:07 O2 Sat by Pulse Oximetry (%) 99 04/25/20 05:07 Constitutional: Yes: No Distress, Calm Cardiovascular: Yes: Pulse Irregular Respiratory: Yes: CTA Bilaterally Gastrointestinal: Yes: Soft, Abdomen, Obese (nontender) Edema: No Peripheral Pulses WNL: Yes Neurological: Yes: Alert, Oriented ...Motor Strength: WNL Labs: CBC, BMP 04/24/20 05:34 04/24/20 05:34 INR, PTT INR 1.40 (0.83-1.09) H 04/22/20 19:56 Laboratory Tests 04/22/20 04/22/20 04/25/20 19:56 20:08 06:05 WBC 10.4 H Hgb 9.2 L Hct 29.6 L Plt Count 317 INR 1.40 H Sodium Potassium Creatinine Calcium COVID-19 ([facility]) Not detected 04/25/20 06:05 WBC Hgb Hct Plt Count INR Sodium 138 Potassium 3.7 Creatinine 1.3 Calcium 9.6 COVID-19 ([facility]) - ....Imaging EKG: Image Reviewed Assessment/Plan echo 04/2020 nl LV function, mildly dilated RV with mildly reduced functio, doming of anterior MV leaflet suggests past rheumatic disease, mod MS, mod TR, severe pulm HTN, normally functioning bioprosthetic valve 80F h/o ppm, bio AVR, MV repair at [facility] [place], afib not on anticoagulation p/w shortness of breath, chest pain shortness of breath, chest pain, acute diastolic heart failure exacerbation: -trop neg x 2 stable EKG - less likely ACS - echo here with nl LV function with severe pulmonary hypertension, RV dysfunction, moderate MS - cont IV lasix for CHF exacerbation, daily chem7, daily weights moderate MS, severe pulm HTN, s/p bio AVR: - history of severe , severe MR and moderate MS; s/p bio AVR, MV repair in 2014 at [facility] [place] - has several month history of dyspnea on exertion with moderate MS and severe pulm HTN on echo - has not followed up with cardiology since 2016 - normal bio AVR function - cont IV lasix, will need repeat echo as outpt when euvolemic to reassess valves afib: - noted on ppm in the past - refused anticoagulation - cont aspirin s/p ppm: - outpatient follow up
[2020-04-25 06:46] LABS: BASO % 0.6 % (0-2.0); EOS % 3.7 % (0-4.5); HEMATOCRIT 29.6 % (32.4-45.2); HEMOGLOBIN 9.2 GM/dL (10.7-15.3); LYMPH % 8.2 % (8-40); MEAN CELL VOLUME 62.1 fl (80-96); MEAN PLT VOLUME 10.2 fl (7.5-11.1); MONO % 7.7 % (3.8-10.2); NEUT % 79.8 % (42.8-82.8); PLATELET COUNT 317 K/MM3 (134-434); RBC 4.77 M/mm3 (3.60-5.2); RDW 16.9 % (11.6-15.6); WHITE BLOOD COUNT 10.4 K/mm3 (4.0-10.0)
[2020-04-25 07:17] LABS: BLOOD UREA NITROGEN 27.6 mg/dL (7-18); CALCIUM 9.6 mg/dL (8.5-10.1); CREATININE 1.3 mg/dL (0.55-1.3); POTASSIUM 3.7 mmol/L (3.5-5.1)
[2020-04-25 07:45] LABS: MCH 19.2 pg (25.7-33.7)
[2020-04-25] MEDS: FERROUS SO4 325 MG TABLET (FP) PO SCH ×3 (09:16→17:28)
[2020-04-25] MEDS: PANTOPRAZOLE 40 MG TABLET PO SCH (09:17)
[2020-04-25] MEDS: FUROSEMIDE 40 MG/4 ML INJECTABLE VIAL IVPUSH SCH (09:18)
[2020-04-25] MEDS: ASPIRIN 325 MG ENTERIC COATED TABLET (FP) PO SCH (09:18)
[2020-04-25] MEDS: LIDOCAINE 5% TOPICAL PATCH TP SCH (09:19)
--- NOTE | 2020-04-25 12:00 | PN ---
Progress Note, Physician Chief Complaint: no bm yet back pain no change pt agreeing p/t tx oob stress test inhouse or out pt? cxr again now renal sono - Current Medication List Current Medications: Active Medications Acetaminophen (Tylenol -) 500 mg PO Q6H PRN PRN Reason: PAIN 4-6 Last Admin: 04/25/20 09:28 Dose: 500 mg Documented by: Aspirin (Ecotrin -) 325 mg PO DAILY [facility] Last Admin: 04/25/20 09:18 Dose: 325 mg Documented by: Atorvastatin Calcium (Lipitor -) 80 mg PO HS [facility] Last Admin: 04/24/20 21:15 Dose: 80 mg Documented by: Ferrous Sulfate (Feosol -) 325 mg PO TIDCM [facility] Last Admin: 04/25/20 09:16 Dose: 325 mg Documented by: Furosemide (Lasix Injection -) 40 mg IVPUSH DAILY [facility] Last Admin: 04/25/20 09:18 Dose: 40 mg Documented by: Lidocaine (Lidoderm Patch -) 1 patch TP DAILY [facility] Last Admin: 04/25/20 09:19 Dose: 1 patch Documented by: Miscellaneous (Lidoderm Patch Removal) 1 each MC DAILY@2200 [facility] Last Admin: 04/24/20 21:16 Dose: 1 each Documented by: Nitrofurantoin Macrocrystals (Macrodantin -) 50 mg PO Q6HPO [facility] Last Admin: 04/25/20 05:09 Dose: 50 mg Documented by: Pantoprazole Sodium (Protonix -) 40 mg PO DAILY [facility] Last Admin: 04/25/20 09:17 Dose: 40 mg Documented by: Polyethylene Glycol (Miralax (For Daily Use) -) 17 gm PO DAILY [facility] - Objective Vital Signs: Vital Signs Temperature 98.3 F 04/25/20 09:00 Pulse Rate 89 04/25/20 09:00 Respiratory Rate 18 04/25/20 09:00 Blood Pressure 126/56 L 04/25/20 09:00 O2 Sat by Pulse Oximetry (%) 96 04/25/20 09:00 Constitutional: Yes: No Distress Eyes: Yes: WNL HENT: Yes: WNL Neck: Yes: WNL Cardiovascular: Yes: WNL Respiratory: Yes: SOB on Exertion Gastrointestinal: Yes: WNL ...Rectal Exam: Yes: Deferred Genitourinary: Yes: WNL, Urethral Discharge Musculoskeletal: Yes: Back Pain Extremities: Yes: WNL Edema: No Peripheral Pulses WNL: Yes Integumentary: Yes: WNL Neurological: Yes: WNL ...Motor Strength: WNL Psychiatric: Yes: WNL Labs: CBC, BMP 04/25/20 06:05 04/25/20 06:05 INR, PTT INR 1.40 (0.83-1.09) H 04/22/20 19:56
[2020-04-25] MEDS: POLYETHYLENE GLYCOL 3350 119 GM BTL PO SCH (12:11)
--- NOTE | 2020-04-25 13:02 | PN ---
Progress Note (short form) - Note Progress Note: Still with back pain. No acute events overnight. Intake & Output 04/22/20 04/23/20 04/24/20 04/25/20 23:59 23:59 23:59 23:59 Intake Total 970 240 Balance 970 240 Weight 240 lb 240 lb Last Vital Signs Temp Pulse Resp BP Pulse Ox 98.3 F 89 18 126/56 L 96 04/25/20 09:00 04/25/20 09:00 04/25/20 09:00 04/25/20 09:00 04/25/20 09:00 Active Medications Acetaminophen (Tylenol -) 500 mg PO Q6H PRN PRN Reason: PAIN 4-6 Last Admin: 04/25/20 09:28 Dose: 500 mg Documented by: Aspirin (Ecotrin -) 325 mg PO DAILY [facility] Last Admin: 04/25/20 09:18 Dose: 325 mg Documented by: Atorvastatin Calcium (Lipitor -) 80 mg PO HS [facility] Last Admin: 04/24/20 21:15 Dose: 80 mg Documented by: Ferrous Sulfate (Feosol -) 325 mg PO TIDCM [facility] Last Admin: 04/25/20 12:32 Dose: 325 mg Documented by: Furosemide (Lasix Injection -) 40 mg IVPUSH DAILY [facility] Last Admin: 04/25/20 09:18 Dose: 40 mg Documented by: Lidocaine (Lidoderm Patch -) 1 patch TP DAILY [facility] Last Admin: 04/25/20 09:19 Dose: 1 patch Documented by: Miscellaneous (Lidoderm Patch Removal) 1 each [facility] DAILY@2200 [facility] Last Admin: 04/24/20 21:16 Dose: 1 each Documented by: Nitrofurantoin Macrocrystals (Macrodantin -) 50 mg PO Q6HPO [facility] Last Admin: 04/25/20 12:11 Dose: 50 mg Documented by: Pantoprazole Sodium (Protonix -) 40 mg PO DAILY [facility] Last Admin: 04/25/20 09:17 Dose: 40 mg Documented by: Polyethylene Glycol (Miralax (For Daily Use) -) 17 gm PO DAILY [facility] Last Admin: 04/25/20 12:11 Dose: 17 gm Documented by: Constitutional: Yes: Calm Eyes: Yes: Conjunctiva Clear, EOM Intact HENT: Yes: Atraumatic, Normocephalic Neck: Yes: Supple, Trachea Midline Cardiovascular: Yes: Regular Rate and Rhythm Respiratory: Yes: Diminished (at bases) ...Clubbing: No Gastrointestinal: Yes: Normal Bowel Sounds, Soft. No: Tenderness Edema: No Neurological: Yes: Alert, Oriented Labs: Laboratory Results - last 24 hr 04/25/20 04/25/20 06:05 06:05 WBC 10.4 H RBC 4.77 Hgb 9.2 L Hct 29.6 L MCV 62.1 L MCH 19.2 L MCHC 31.0 L RDW 16.9 H Plt Count 317 MPV 10.2 Absolute Neuts (auto) 8.3 H Neutrophils % 79.8 Lymphocytes % 8.2 D Monocytes % 7.7 Eosinophils % 3.7 Basophils % 0.6 Nucleated RBC % 0 Sodium 138 Potassium 3.7 Chloride 99 Carbon Dioxide 31 Anion Gap 8 BUN 27.6 H Creatinine 1.3 Est GFR (CKD-EPI)AfAm 45.19 Est GFR (CKD-EPI)NonAf 38.99 Random Glucose 104 Calcium 9.6 Imaging - Results Chest X-ray: Report Reviewed, Image Reviewed (pulmonary vascular congestion) Assessment/Plan Acute on Chronic Diastolic Heart Failure Pulmonary HTN Atrial Fibrillation s/p PPM h/o bio AVR h/o MV repair - Pain control - IV lasix - monitor urine output, creatinine - daily weights - rate control - pain control - monitor CXR with diuresis - when ready for discharge, check ambulatory SpO2 on room air to assess for home O2 - DVT prophylaxis Dr Orta
[2020-04-25] MEDS: ATORVASTATIN CA 80 MG TABLET (FP) PO SCH (21:27)
[2020-04-25] MEDS: LIDOCAINE PATCH REMOVAL MC SCH (22:43)
[2020-04-26] MEDS ORDERED: PT OWN MED DRAWER 7, Y5N ONE ×5 (00:01→17:35)
[2020-04-26] MEDS: MORPHINE SULFATE 2 MG/ML VIAL IVPUSH PRN ×3 (00:10→21:38)
[2020-04-26] MEDS: NITROFURANTOIN MACROCRYSTAL 50 MG CAPSULE (FP) PO SCH ×4 (00:10→17:36)
--- NOTE | 2020-04-26 06:32 | PN ---
Progress Note, Physician Chief Complaint: c/o numbness of right anterior thigh since this morning SOB is improved. No CP/palps TELE: NSR rare VPCs History of Present Illness: bio AVR MV repair AF Acute diastolic CHF Denies h/o smoking - Current Medication List Current Medications: Active Medications Acetaminophen (Tylenol -) 500 mg PO Q6H PRN PRN Reason: PAIN 4-6 Last Admin: 04/25/20 20:21 Dose: 500 mg Documented by: Aspirin (Ecotrin -) 325 mg PO DAILY [facility] Last Admin: 04/25/20 09:18 Dose: 325 mg Documented by: Atorvastatin Calcium (Lipitor -) 80 mg PO HS [facility] Last Admin: 04/25/20 21:27 Dose: 80 mg Documented by: Ferrous Sulfate (Feosol -) 325 mg PO TIDCM [facility] Last Admin: 04/25/20 17:28 Dose: 325 mg Documented by: Furosemide (Lasix Injection -) 40 mg IVPUSH DAILY [facility] Last Admin: 04/25/20 09:18 Dose: 40 mg Documented by: Lidocaine (Lidoderm Patch -) 1 patch TP DAILY [facility] Last Admin: 04/25/20 09:19 Dose: 1 patch Documented by: Miscellaneous (Lidoderm Patch Removal) 1 each MC DAILY@2200 [facility] Last Admin: 04/25/20 22:43 Dose: 1 each Documented by: Morphine Sulfate (Morphine Sulfate) 2 mg IVPUSH Q6H PRN PRN Reason: PAIN 7-10 Last Admin: 04/26/20 00:10 Dose: 2 mg Documented by: Nitrofurantoin Macrocrystals (Macrodantin -) 50 mg PO Q6HPO [facility] Last Admin: 04/26/20 06:17 Dose: 50 mg Documented by: Pantoprazole Sodium (Protonix -) 40 mg PO DAILY [facility] Last Admin: 04/25/20 09:17 Dose: 40 mg Documented by: Polyethylene Glycol (Miralax (For Daily Use) -) 17 gm PO DAILY [facility] Last Admin: 04/25/20 12:11 Dose: 17 gm Documented by: - Objective Vital Signs: Vital Signs Temperature 98 F 04/26/20 00:57 Pulse Rate 82 04/26/20 00:57 Respiratory Rate 20 04/26/20 00:57 Blood Pressure 138/61 04/26/20 00:57 O2 Sat by Pulse Oximetry (%) 98 04/25/20 21:00 Constitutional: Yes: No Distress, Calm Eyes: Yes: Conjunctiva Clear Cardiovascular: Yes: Regular Rate and Rhythm Respiratory: Yes: CTA Bilaterally Gastrointestinal: Yes: Soft, Abdomen, Obese Edema: Yes Edema: LLE: 1+, RLE: 1+ Peripheral Pulses WNL: Yes Neurological: Yes: Alert, Oriented Psychiatric: Yes: WNL Labs: CBC, BMP 04/25/20 06:05 04/25/20 06:05 INR, PTT INR 1.40 (0.83-1.09) H 04/22/20 19:56 Laboratory Tests 04/26/20 06:15 Sodium 140 Potassium 3.9 Creatinine 1.3 Calcium 9.9 - ....Imaging EKG: Image Reviewed Assessment/Plan Assessment/Plan echo 04/2020 nl LV function, mildly dilated RV with mildly reduced functio, doming of anterior MV leaflet suggests past rheumatic disease, mod MS, mod TR, severe pulm HTN, normally functioning bioprosthetic valve 80F h/o ppm, bio AVR, MV repair at [facility] [place], afib not on anticoagulation p/w shortness of breath, chest pain shortness of breath, chest pain, acute diastolic heart failure exacerbation: -trop neg x 2 stable EKG - less likely ACS - echo here with nl LV function with severe pulmonary hypertension, RV dysfunction, moderate MS - cont IV lasix for CHF exacerbation, daily chem7, daily weights, clinically improving moderate MS, severe pulm HTN, s/p bio AVR: - history of severe , severe MR and moderate MS; s/p bio AVR, MV repair in 2014 at [facility] [place] - has several month history of dyspnea on exertion with moderate MS and severe pulm HTN on echo - has not followed up with cardiology since 2016 - normal bio AVR function - cont IV lasix, will need repeat echo as outpt when euvolemic to reassess bret ves afib: - noted on ppm in the past - refused anticoagulation - cont aspirin s/p ppm: - outpatient follow up Right thigh numbness: -May be due to nerve impingement/entrapment -Isolated sensory deficit seems unusual for central event -neuro consult
--- NOTE | 2020-04-26 07:14 | PN ---
Progress Note, Physician History of Present Illness: pulmonary alert,oob-chair,dyspnea improving,still c/o cp - Current Medication List Current Medications: Active Medications Acetaminophen (Tylenol -) 500 mg PO Q6H PRN PRN Reason: PAIN 4-6 Last Admin: 04/25/20 20:21 Dose: 500 mg Documented by: Aspirin (Ecotrin -) 325 mg PO DAILY [facility] Last Admin: 04/25/20 09:18 Dose: 325 mg Documented by: Atorvastatin Calcium (Lipitor -) 80 mg PO HS [facility] Last Admin: 04/25/20 21:27 Dose: 80 mg Documented by: Ferrous Sulfate (Feosol -) 325 mg PO TIDCM [facility] Last Admin: 04/25/20 17:28 Dose: 325 mg Documented by: Furosemide (Lasix Injection -) 40 mg IVPUSH DAILY [facility] Last Admin: 04/25/20 09:18 Dose: 40 mg Documented by: Lidocaine (Lidoderm Patch -) 1 patch TP DAILY [facility] Last Admin: 04/25/20 09:19 Dose: 1 patch Documented by: Miscellaneous (Lidoderm Patch Removal) 1 each [facility] DAILY@2200 [facility] Last Admin: 04/25/20 22:43 Dose: 1 each Documented by: Morphine Sulfate (Morphine Sulfate) 2 mg IVPUSH Q6H PRN PRN Reason: PAIN 7-10 Last Admin: 04/26/20 00:10 Dose: 2 mg Documented by: Nitrofurantoin Macrocrystals (Macrodantin -) 50 mg PO Q6HPO [facility] Last Admin: 04/26/20 06:17 Dose: 50 mg Documented by: Pantoprazole Sodium (Protonix -) 40 mg PO DAILY [facility] Last Admin: 04/25/20 09:17 Dose: 40 mg Documented by: Polyethylene Glycol (Miralax (For Daily Use) -) 17 gm PO DAILY [facility] Last Admin: 04/25/20 12:11 Dose: 17 gm Documented by: - Objective Vital Signs: Vital Signs Temperature 98 F 04/26/20 00:57 Pulse Rate 82 04/26/20 00:57 Respiratory Rate 20 04/26/20 00:57 Blood Pressure 138/61 04/26/20 00:57 O2 Sat by Pulse Oximetry (%) 98 04/25/20 21:00 Constitutional: Yes: Well Nourished, Calm Eyes: Yes: WNL HENT: Yes: WNL Neck: Yes: WNL Cardiovascular: Yes: Regular Rate and Rhythm, S1, S2 Respiratory: Yes: CTA Bilaterally Gastrointestinal: Yes: Normal Bowel Sounds, Soft Extremities: Yes: WNL Edema: Yes Labs: CBC, BMP 04/25/20 06:05 INR, PTT INR 1.40 (0.83-1.09) H 04/22/20 19:56 Problem List - Problems (1) Pulmonary HTN Code(s): I27.20 - PULMONARY HYPERTENSION, UNSPECIFIED (2) Chest pain Code(s): R07.9 - CHEST PAIN, UNSPECIFIED (3) Shortness of breath Code(s): R06.02 - SHORTNESS OF BREATH (4) CHF (congestive heart failure) Code(s): I50.9 - HEART FAILURE, UNSPECIFIED Assessment/Plan Assessment/Plan Acute on Chronic Diastolic Heart Failure Pulmonary HTN Atrial Fibrillation s/p PPM h/o bio AVR h/o MV repair - Pain control - IV lasix - monitor urine output, creatinine - daily weights - rate control as per cardiology - pain control - monitor CXR with diuresis - when ready for discharge, check ambulatory SpO2 on room air to assess for home O2 - DVT prophylaxis DR HINKLE
[2020-04-26 07:34] LABS: BLOOD UREA NITROGEN 31.2 mg/dL (7-18); CALCIUM 9.9 mg/dL (8.5-10.1); CREATININE 1.3 mg/dL (0.55-1.3); POTASSIUM 3.9 mmol/L (3.5-5.1)
[2020-04-26] MEDS: FUROSEMIDE 40 MG/4 ML INJECTABLE VIAL IVPUSH SCH (09:44)
[2020-04-26] MEDS: PANTOPRAZOLE 40 MG TABLET PO SCH (09:44)
[2020-04-26] MEDS: FERROUS SO4 325 MG TABLET (FP) PO SCH ×3 (09:44→17:36)
[2020-04-26] MEDS: ASPIRIN 325 MG ENTERIC COATED TABLET (FP) PO SCH (09:44)
[2020-04-26] MEDS: POLYETHYLENE GLYCOL 3350 119 GM BTL PO SCH (09:45)
--- NOTE | 2020-04-26 11:10 | CONSULT ---
Consult Consult Specialty:: UROLOGY Reason for Consultation:: Rt Renal stone - History of Present Illness History of Present Illness: 80 Y/O Female patient with PMH PPM and valve replacement and repair (unsure which, [facility]) presenting with shortness of breath and pleuritic chest pain around the supraepigastric area. Pt started experiencing symptoms after waking up from a nap, did not take anything for symptoms thinking it would resolve. Takes ASA 325 daily. Endorses mild nausea. Endorsing dry cough for about a week and SOB with walking. No sick contacts or group sabianist. Denies f/c, vision/hearing changes, headache, numbness, tingling, weakness, lightheadedness. Has chronic swelling of the legs but is no worse than normal. Hx of back pain 3 days no hematuria, no dysuria, frequency 2 nocturia 2. O/E soft lax abd no palpable bladder, she is on external catheter drainage. bilateral leg edema no CVA tenderness. WBC 10.4 HB 9.2 BUN 31 S.Creat 1.3 Renal U/S Rt renal stones 1.8 and 0.9 cm no hydro - Past Medical History Cardio/Vascular: Yes: Mitral Stenosis, Other (pacemaker m/v prothetic valve sx mas on echo rt vent prees high no ef noted ?hfpef) Pulmonary: Yes: Other (chf) ...: No ENT: Yes: Other (catarract sx) - Past Surgical History Past Surgical History: Yes: Cataract Removal, Permanent Pacemaker, Valve Replacement - Alcohol/Substance Use Hx Alcohol Use: No History of Substance Use: reports: None - Smoking History Smoking history: Unknown if ever smoked Have you smoked in the past 12 months: No - Social History ADL: Support Services History of Recent Travel: No Home Medications - Allergies Allergies/Adverse Reactions: Allergies Allergy/AdvReac Type Severity Reaction Status Date / Time No Allergy Information Allergy Verified 04/22/20 23:59 Available - Home Medications Home Medications: Ambulatory Orders Aspirin/Calcium Carbonate [Pedrito Women's Aspirin Tablet] 1 each PO 04/23/20 Furosemide 20 mg PO 04/23/20 Metoprolol Succinate 100 mg PO 04/23/20 Family Medical History Family History: Unremarkable Physical Exam Vital Signs: Vital Signs Temperature 97.8 F 04/26/20 09:00 Pulse Rate 92 H 04/26/20 09:00 Respiratory Rate 18 04/26/20 09:00 Blood Pressure 131/72 04/26/20 09:00 O2 Sat by Pulse Oximetry (%) 97 04/26/20 09:00 Labs: CBC, BMP 04/25/20 06:05 04/26/20 06:15 Assessment/Plan Rt renal stones Plan: CT-scan of abd and pelvis without contrast. will schedule her for Rt ESWL when her medical condition allow.
[2020-04-26] MEDS: LIDOCAINE 5% TOPICAL PATCH TP SCH (11:19)
[2020-04-26] MEDS: ACETAMINOPHEN 500 MG TABLET (FP) PO PRN (13:00)
[2020-04-26] MEDS: ATORVASTATIN CA 80 MG TABLET (FP) PO SCH (21:37)
[2020-04-26] MEDS: LIDOCAINE PATCH REMOVAL MC SCH (21:38)
[2020-04-27] MEDS: NITROFURANTOIN MACROCRYSTAL 50 MG CAPSULE (FP) PO SCH ×5 (00:30→23:23)
[2020-04-27] MEDS: ACETAMINOPHEN 500 MG TABLET (FP) PO PRN (06:18)
--- NOTE | 2020-04-27 06:51 | PN ---
Progress Note, Physician Chief Complaint: less SOB Edema improved; no CP/dizziness/no new focal neuro deficits Numbness left thigh slightly better, but still feels TELE: SR w/ intermittent demand V pacing, short burst of PSVT- suspicious for PAF History of Present Illness: bio AVR MV repair AF Acute diastolic CHF Denies h/o smoking - Current Medication List Current Medications: Active Medications Acetaminophen (Tylenol -) 500 mg PO Q6H PRN PRN Reason: PAIN 4-6 Last Admin: 04/27/20 06:18 Dose: 500 mg Documented by: Aspirin (Ecotrin -) 325 mg PO DAILY [facility] Last Admin: 04/26/20 09:44 Dose: 325 mg Documented by: Atorvastatin Calcium (Lipitor -) 80 mg PO HS [facility] Last Admin: 04/26/20 21:37 Dose: 80 mg Documented by: Ferrous Sulfate (Feosol -) 325 mg PO TIDCM [facility] Last Admin: 04/26/20 17:36 Dose: 325 mg Documented by: Furosemide (Lasix Injection -) 40 mg IVPUSH DAILY [facility] Last Admin: 04/26/20 09:44 Dose: 40 mg Documented by: Lidocaine (Lidoderm Patch -) 1 patch TP DAILY [facility] Last Admin: 04/26/20 11:19 Dose: 1 patch Documented by: Miscellaneous (Lidoderm Patch Removal) 1 each [facility] DAILY@2200 [facility] Last Admin: 04/26/20 21:38 Dose: 1 each Documented by: Morphine Sulfate (Morphine Sulfate) 2 mg IVPUSH Q6H PRN PRN Reason: PAIN 7-10 Last Admin: 04/26/20 21:38 Dose: 2 mg Documented by: Nitrofurantoin Macrocrystals (Macrodantin -) 50 mg PO Q6HPO [facility] Last Admin: 04/27/20 06:17 Dose: 50 mg Documented by: Pantoprazole Sodium (Protonix -) 40 mg PO DAILY [facility] Last Admin: 04/26/20 09:44 Dose: 40 mg Documented by: Polyethylene Glycol (Miralax (For Daily Use) -) 17 gm PO DAILY [facility] Last Admin: 04/26/20 09:45 Dose: 17 gm Documented by: - Objective Vital Signs: Vital Signs Temperature 98.3 F 04/27/20 05:00 Pulse Rate 89 04/27/20 05:00 Respiratory Rate 20 04/27/20 05:00 Blood Pressure 106/60 04/27/20 05:00 O2 Sat by Pulse Oximetry (%) 95 04/27/20 05:00 Constitutional: Yes: No Distress, Calm Eyes: Yes: Conjunctiva Clear, EOM Intact HENT: Yes: Atraumatic, Normocephalic Neck: Yes: Supple, Trachea Midline Cardiovascular: Yes: Regular Rate and Rhythm Respiratory: Yes: Other (rales left base- clear with deep breathing.) Gastrointestinal: Yes: Soft (nt), Abdomen, Obese Edema: Yes Edema: LLE: 1+, RLE: 1+ Peripheral Pulses WNL: Yes Neurological: Yes: Alert, Oriented ...Motor Strength: WNL Labs: CBC, BMP 04/25/20 06:05 04/26/20 06:15 INR, PTT INR 1.40 (0.83-1.09) H 04/22/20 19:56 - ....Imaging EKG: Image Reviewed Assessment/Plan ssessment/Plan echo 04/2020 nl LV function, mildly dilated RV with mildly reduced functio, doming of anterior MV leaflet suggests past rheumatic disease, mod MS, mod TR, severe pulm HTN, normally functioning bioprosthetic valve 79F h/o ppm, bio AVR, [place] [facility] [place]ib not [place] anticoagulation p/w shortness of breath, chest pain shortness of breath, chest pain, acute diastolic heart failure exacerbation: -trop neg x 2 stable EKG - less likely ACS - echo here with nl LV function with severe pulmonary hypertension, RV dysfunction, moderate MS - cont IV lasix for CHF exacerbation, daily chem7, daily weights, clinically improving. Plan to switch to PO 40mg BID (or 80mg QD) 04/28 moderate MS, severe pulm HTN, s/p bio AVR: - history of severe , severe MR and moderate MS; s/p bio AVR, [place] repair [place] 2014 [place] [facility] [place] has several month history of dyspnea on exertion with moderate MS and severe pulm HTN on echo - has not followed up with cardiology since 2016 - normal bio AVR function - cont IV lasix today, will need repeat echo as outpt when euvolemic to reassess valves afib: - noted on ppm in the past - refused anticoagulation - cont aspirin s/p ppm: - outpatient follow up Right thigh numbness: -May be due to nerve impingement/entrapment -Isolated sensory deficit seems unusual for central event -neuro consulted
--- NOTE | 2020-04-27 09:47 | PN ---
Progress Note, Physician Chief Complaint: rt anteriia thigh rad to lat rt leg ? rt hip numbness neuso consulted ?parathesia meralgia? vss 2 bow movments oob walks w o2 no diff good apetite less back pain less sob no complaints today states please with hosp services and alba atkins as out pt - Current Medication List Current Medications: Active Medications Acetaminophen (Tylenol -) 500 mg PO Q6H PRN PRN Reason: PAIN 4-6 Last Admin: 04/27/20 06:18 Dose: 500 mg Documented by: Aspirin (Ecotrin -) 325 mg PO DAILY [facility] Last Admin: 04/26/20 09:44 Dose: 325 mg Documented by: Atorvastatin Calcium (Lipitor -) 80 mg PO HS [facility] Last Admin: 04/26/20 21:37 Dose: 80 mg Documented by: Ferrous Sulfate (Feosol -) 325 mg PO TIDCM [facility] Last Admin: 04/26/20 17:36 Dose: 325 mg Documented by: Furosemide (Lasix Injection -) 40 mg IVPUSH DAILY [facility] Last Admin: 04/26/20 09:44 Dose: 40 mg Documented by: Lidocaine (Lidoderm Patch -) 1 patch TP DAILY [facility] Last Admin: 04/26/20 11:19 Dose: 1 patch Documented by: Miscellaneous (Lidoderm Patch Removal) 1 each MC DAILY@2200 [facility] Last Admin: 04/26/20 21:38 Dose: 1 each Documented by: Morphine Sulfate (Morphine Sulfate) 2 mg IVPUSH Q6H PRN PRN Reason: PAIN 7-10 Last Admin: 04/26/20 21:38 Dose: 2 mg Documented by: Nitrofurantoin Macrocrystals (Macrodantin -) 50 mg PO Q6HPO [facility] Last Admin: 04/27/20 06:17 Dose: 50 mg Documented by: Pantoprazole Sodium (Protonix -) 40 mg PO DAILY [facility] Last Admin: 04/26/20 09:44 Dose: 40 mg Documented by: Polyethylene Glycol (Miralax (For Daily Use) -) 17 gm PO DAILY [facility] Last Admin: 04/26/20 09:45 Dose: 17 gm Documented by: - Objective Vital Signs: Vital Signs Temperature 98.3 F 04/27/20 05:00 Pulse Rate 89 04/27/20 05:00 Respiratory Rate 20 04/27/20 05:00 Blood Pressure 106/60 04/27/20 05:00 O2 Sat by Pulse Oximetry (%) 95 04/27/20 05:00 Constitutional: Yes: No Distress Eyes: Yes: WNL HENT: Yes: WNL Neck: Yes: WNL Cardiovascular: Yes: WNL Respiratory: Yes: On Nasal O2, SOB on Exertion Gastrointestinal: Yes: WNL ...Rectal Exam: Yes: Deferred Genitourinary: Yes: WNL, Urethral Discharge Musculoskeletal: Yes: Back Pain, Muscle Weakness Edema: No Peripheral Pulses WNL: Yes Peripheral Pulses: Left Radial: 1+, Right Radial: 1+, Left Doralis Pedis: 1+, Right Dorsalis Pedis: 1+, Left Femoral: 1+, Right Femoral: 1+ Integumentary: Yes: WNL Neurological: Yes: WNL ...Motor Strength: WNL Psychiatric: Yes: WNL Labs: CBC, BMP 04/25/20 06:05 04/26/20 06:15 INR, PTT INR 1.40 (0.83-1.09) H 04/22/20 19:56 Assessment/Plan eswal out pt neuro to see pt ?? cont all tx as is out pt pacemaker hck refusing shorter rehab p/t eval for ?d/c soon pt states eswal to be done in hospital gu please adviser ? d/c in am if not done in pt
--- NOTE | 2020-04-27 10:56 | CONSULT ---
Consult - text type - Consultation Consultation Note: Neurology History of Present Illness Chief Complaint: Shortness of Breath Stated Complaint: Right thigh numbness - History of Present Illness Initial Comments: 80F PMH PPM and valve replacement and repair (unsure which, [facility]) presenting with shortness of breath and pleuritic chest pain around the supraepigastric area described as band like and as if it were a muscle pull on day of admission. Pt started experiencing symptoms after waking up from a nap, did not take anything for symptoms thinking it would resolve. Pain 7/10 now. Takes ASA 325 daily. Endorses mild nausea. Endorsing dry cough for about a week and SOB with walking. No sick contacts or group restoration. Denies f/c, vision/hearing changes, headache, numbness, tingling, weakness, lightheadedness. Has chronic swelling of the legs but is no worse than normal. No personal hx malignancy or VTEs. PCP. Pt with complaints of right thigh numbness 04/26 am, co nsult for neurology. Reduced PP on testing in RLE in region of thigh. She does have LBP and thus could be meralgia paresthetica vs lumbar radiculaopthy. Advised EMG/NCS which can be done as outpatient. In interim, will start gabapentin 300mg twice a day to see if any relief. - Past Medical History Cardiovascular: Yes: Mitral Stenosis, Other (pacemaker m/v prothetic valve sx mas on echo rt vent prees high no ef noted ?hfpef) Pulmonary: Yes: Other (chf) Reproductive: Yes: Postmenopausal ...: No ENT: Yes: Other (catarract sx) - Past Surgical History Past Surgical History: Yes: Cataract Removal, Permanent Pacemaker, Valve Replacement - Smoking History Smoking history: Unknown if ever smoked Have you smoked in the past 12 months: No - Alcohol/Substance Use Hx Alcohol Use: No History of Substance Use: reports: None - Psycho-Social/Smoking History Smoking History: Unknown if ever smoked - Social History Usual Living Arrangement: Yes: With Child Do you think of yourself as: Straight/Heterosexual ADL: Support Services History of Recent Travel: No - Medical History Allergies/Adverse Reactions: Allergies Allergy/AdvReac Type Severity Reaction Status Date / Time No Allergy Information Allergy Verified 04/22/20 23:59 Available Ambulatory Orders Aspirin/Calcium Carbonate [[place] Women's Aspirin Tablet] 1 each PO 04/23/20 Furosemide 20 mg PO 04/23/20 Metoprolol Succinate 100 mg PO 04/23/20 Active Medications Acetaminophen (Tylenol -) 500 mg PO Q6H PRN PRN Reason: PAIN 4-6 Last Admin: 04/27/20 06:18 Dose: 500 mg Documented by: Aspirin (Ecotrin -) 325 mg PO DAILY [facility] Last Admin: 04/26/20 09:44 Dose: 325 mg Documented by: Atorvastatin Calcium (Lipitor -) 80 mg PO HS [facility] Last Admin: 04/26/20 21:37 Dose: 80 mg Documented by: Ferrous Sulfate (Feosol -) 325 mg PO TIDCM [facility] Last Admin: 04/26/20 17:36 Dose: 325 mg Documented by: Furosemide (Lasix Injection -) 40 mg IVPUSH DAILY [facility] Last Admin: 04/26/20 09:44 Dose: 40 mg Documented by: Lidocaine (Lidoderm Patch -) 1 patch TP DAILY [facility] Last Admin: 04/26/20 11:19 Dose: 1 patch Documented by: Miscellaneous (Lidoderm Patch Removal) 1 each [facility] DAILY@2200 [facility] Last Admin: 04/26/20 21:38 Dose: 1 each Documented by: Morphine Sulfate (Morphine Sulfate) 2 mg IVPUSH Q6H PRN PRN Reason: PAIN 7-10 Last Admin: 04/26/20 21:38 Dose: 2 mg Documented by: Nitrofurantoin Macrocrystals (Macrodantin -) 50 mg PO Q6HPO [facility] Last Admin: 04/27/20 06:17 Dose: 50 mg Documented by: Pantoprazole Sodium (Protonix -) 40 mg PO DAILY [facility] Last Admin: 04/26/20 09:44 Dose: 40 mg Documented by: Polyethylene Glycol (Miralax (For Daily Use) -) 17 gm PO DAILY [facility] Last Admin: 04/26/20 09:45 Dose: 17 gm Documented by: Review of Systems - Review of Systems Constitutional: reports: No Symptoms Eyes: reports: No Symptoms HENT: reports: No Symptoms Neck: reports: No Symptoms Cardiovascular: reports: No Symptoms Respiratory: reports: No Symptoms Gastrointestinal: reports: No Symptoms Genitourinary: reports: No Symptoms Musculoskeletal: reports: No Symptoms Integumentary: reports: No Symptoms Neurological: reports: No Symptoms Endocrine: reports: No Symptoms Hematology/Lymphatic: reports: No Symptoms Psychiatric: reports: No Symptoms Vital Signs: *Physical Exam - Vital Signs Vital Signs Period Temp Pulse Resp BP Sys/Rolle Pulse Ox Last 24 Hr 98.2 F-98.3 F 89-89 20-20 106-128/60-77 95-96 Constitutional: Yes: No Distress, Calm Eyes: Yes: Conjunctiva Clear, EOM Intact HENT: Yes: Atraumatic, Normocephalic Neck: Yes: Supple, Trachea Midline Respiratory: Yes: Regular, On Nasal O2, Rales Gastrointestinal: Yes: Normal Bowel Sounds, Soft Cardiovascular: Yes: Regular Rate and Rhythm JVD: No PMI: Non-Displaced Heart Sounds: Yes: S1, S2 Murmur: Yes: Systolic Murmur, Diastolic Murmur Edema: Yes Edema: LLE: 1+, RLE: 1+ Integumentary: No: Jaundice Neurological: Yes: Alert, Oriented, decreased PP and LT in RLE, moves extremiti es equally CBCD WBC 10.4 K/mm3 (4.0-10.0) H 04/25/20 06:05 RBC 4.77 M/mm3 (3.60-5.2) 04/25/20 06:05 Hgb 9.2 GM/dL (10.7-15.3) L 04/25/20 06:05 Hct 29.6 % (32.4-45.2) L 04/25/20 06:05 MCV 62.1 fl (80-96) L 04/25/20 06:05 MCHC 31.0 g/dl (32.0-36.0) L 04/25/20 06:05 RDW 16.9 % (11.6-15.6) H 04/25/20 06:05 Plt Count 317 K/MM3 (134-434) 04/25/20 06:05 MPV 10.2 fl (7.5-11.1) 04/25/20 06:05 CMP Sodium 140 mmol/L (136-145) 04/26/20 06:15 Potassium 3.9 mmol/L (3.5-5.1) 04/26/20 06:15 Chloride 99 mmol/L (98-107) 04/26/20 06:15 Carbon Dioxide 34 mmol/L (21-32) H 04/26/20 06:15 Anion Gap 8 MMOL/L (8-16) 04/26/20 06:15 BUN 31.2 mg/dL (7-18) H 04/26/20 06:15 Creatinine 1.3 mg/dL (0.55-1.3) 04/26/20 06:15 Random Glucose 99 mg/dL (74-106) 04/26/20 06:15 Calcium 9.9 mg/dL (8.5-10.1) 04/26/20 06:15 Total Bilirubin 0.8 mg/dL (0.2-1) 04/23/20 05:40 AST 14 U/L (15-37) L 04/23/20 05:40 ALT 17 U/L (13-61) 04/23/20 05:40 Alkaline Phosphatase 79 U/L (45-117) 04/23/20 05:40 Total Protein 6.7 g/dl (6.4-8.2) 04/23/20 05:40 Albumin 3.2 g/dl (3.4-5.0) L 04/23/20 05:40 CARDIAC ENZYMES Creatine Kinase 43 U/L (26-192) 04/23/20 05:40 Troponin I < 0.02 ng/ml (0.00-0.05) 04/23/20 05:40 Plan/ Assessment: 80F PMH PPM and valve replacement and repair (unsure which, [facility]) presenting with shortness of breath and pleuritic chest pain around the supraepigastric area described as band like and as if it were a muscle pull on day of admission. Pt started experiencing symptoms after waking up from a nap, did not take anything for symptoms thinking it would resolve. Pain 7/10 now. Takes ASA 325 daily. Endorses mild nausea. Endorsing dry cough for about a week and SOB with walking. No sick contacts or group restoration. Denies f/c, vision/hearing changes, headache, numbness, tingling, weakness, lightheadedness. Has chronic swelling of the legs but is no worse than normal. No personal hx malignancy or VTEs. PCP Arthur Arcos. Reduced PP on testing in RLE in region of thigh. She does have LBP and thus could be meralgia paresthetica vs lumbar radiculaopthy. Advised EMG/NCS which can be done as outpatient. In interim, will start gabapentin 300mg twice a day to see if any relief. Fall precautions, continue medical and cardiac optimization. Cymbalta may also be considered but will pursue Hoa titration first.
[2020-04-27] MEDS: PANTOPRAZOLE 40 MG TABLET PO SCH (10:57)
[2020-04-27] MEDS: FERROUS SO4 325 MG TABLET (FP) PO SCH ×3 (10:57→18:14)
[2020-04-27] MEDS: POLYETHYLENE GLYCOL 3350 119 GM BTL PO SCH (10:58)
[2020-04-27] MEDS: FUROSEMIDE 40 MG/4 ML INJECTABLE VIAL IVPUSH SCH (10:58)
[2020-04-27] MEDS ORDERED: PT OWN MED DRAWER 7, Y5N ONE ×3 (10:59→18:08)
[2020-04-27] MEDS: LIDOCAINE 5% TOPICAL PATCH TP SCH (11:01)
[2020-04-27] MEDS: ASPIRIN 325 MG ENTERIC COATED TABLET (FP) PO SCH (11:01)
--- NOTE | 2020-04-27 11:19 | PN ---
Progress Note (short form) - Note Progress Note: PULMONARY Breathing better. Still with back pain. Vital Signs Period Temp Pulse Resp BP Sys/Rolle Pulse Ox Last 24 Hr 98.2 F-98.3 F 89-89 20-20 106-128/60-77 95-96 Gen: NAD in chair Heart: RRR Lung: decreased breath sounds at the bases Abd: soft, nontender Ext: distal edema CBC, BMP 04/25/20 06:05 04/26/20 06:15 Active Medications Acetaminophen (Tylenol -) 500 mg PO Q6H PRN PRN Reason: PAIN 4-6 Last Admin: 04/27/20 06:18 Dose: 500 mg Documented by: Aspirin (Ecotrin -) 325 mg PO DAILY [facility] Last Admin: 04/27/20 11:01 Dose: 325 mg Documented by: Atorvastatin Calcium (Lipitor -) 80 mg PO HS [facility] Last Admin: 04/26/20 21:37 Dose: 80 mg Documented by: Ferrous Sulfate (Feosol -) 325 mg PO TIDCM [facility] Last Admin: 04/27/20 10:57 Dose: 325 mg Documented by: Furosemide (Lasix Injection -) 40 mg IVPUSH DAILY [facility] Last Admin: 04/27/20 10:58 Dose: 40 mg Documented by: Lidocaine (Lidoderm Patch -) 1 patch TP DAILY [facility] Last Admin: 04/27/20 11:01 Dose: 1 patch Documented by: Miscellaneous (Lidoderm Patch Removal) 1 each [facility] DAILY@2200 [facility] Last Admin: 04/26/20 21:38 Dose: 1 each Documented by: Morphine Sulfate (Morphine Sulfate) 2 mg IVPUSH Q6H PRN PRN Reason: PAIN 7-10 Last Admin: 04/26/20 21:38 Dose: 2 mg Documented by: Nitrofurantoin Macrocrystals (Macrodantin -) 50 mg PO Q6HPO [facility] Last Admin: 04/27/20 06:17 Dose: 50 mg Documented by: Pantoprazole Sodium (Protonix -) 40 mg PO DAILY [facility] Last Admin: 04/27/20 10:57 Dose: 40 mg Documented by: Polyethylene Glycol (Miralax (For Daily Use) -) 17 gm PO DAILY [facility] Last Admin: 04/27/20 10:58 Dose: 17 gm Documented by: A/P Acute on Chronic Diastolic Heart Failure Pulmonary HTN Atrial Fibrillation s/p PPM h/o bio AVR h/o MV repair - continue lasix - monitor urine output, creatinine - daily weights - rate control - pain control - monitor CXR with diuresis - when ready for discharge, check ambulatory SpO2 on room air to assess for h ome O2 - DVT prophylaxis
[2020-04-27] MEDS: GABAPENTIN 300 MG CAPSULE PO SCH ×2 (12:51→21:14)
[2020-04-27] MEDS: ATORVASTATIN CA 80 MG TABLET (FP) PO SCH (21:13)
[2020-04-27] MEDS: LIDOCAINE PATCH REMOVAL MC SCH (21:14)
[2020-04-27] MEDS: MORPHINE SULFATE 2 MG/ML VIAL IVPUSH PRN (23:22)
[2020-04-28] MEDS: NITROFURANTOIN MACROCRYSTAL 50 MG CAPSULE (FP) PO SCH (06:16)
[2020-04-28 06:48] LABS: BASO % 0.7 % (0-2.0); EOS % 3.3 % (0-4.5); HEMATOCRIT 31.8 % (32.4-45.2); HEMOGLOBIN 9.7 GM/dL (10.7-15.3); LYMPH % 9.4 % (8-40); MCHC 30.5 g/dl (32.0-36.0); MEAN CELL VOLUME 62.5 fl (80-96); MEAN PLT VOLUME 10.2 fl (7.5-11.1); MONO % 8.3 % (3.8-10.2); NEUT % 78.3 % (42.8-82.8); PLATELET COUNT 316 K/MM3 (134-434); RBC 5.09 M/mm3 (3.60-5.2); RDW 16.7 % (11.6-15.6); WHITE BLOOD COUNT 12.5 K/mm3 (4.0-10.0)
[2020-04-28 06:51] LABS: MCH 19.1 pg (25.7-33.7)
[2020-04-28 07:25] LABS: BLOOD UREA NITROGEN 39.8 mg/dL (7-18); CALCIUM 9.8 mg/dL (8.5-10.1)
[2020-04-28 07:27] LABS: CREATININE 1.3 mg/dL (0.55-1.3)
--- NOTE | 2020-04-28 08:46 | PN ---
Progress Note (short form) - Note Progress Note: Neurology History of Present Illness Chief Complaint: Shortness of Breath Stated Complaint: Right thigh numbness - History of Present Illness Initial Comments: 80F PMH PPM and valve replacement and repair (unsure which, [facility]) presenting with shortness of breath and pleuritic chest pain around the supraepigastric area described as band like and as if it were a muscle pull on day of admission. Pt started experiencing symptoms after waking up from a nap, did not take anything for symptoms thinking it would resolve. Pain 7/10 now. Takes ASA 325 daily. Endorses mild nausea. Endorsing dry cough for about a week and SOB with walking. No sick contacts or group jewish. Denies f/c, vision/hearing changes, headache, numbness, tingling, weakness, lightheadedness. Has chronic swelling of the legs but is no worse than normal. No personal hx malignancy or VTEs. PCP. Pt with complaints of right thigh numbness 9 am, consult for neurology. Reduced PP on testing in RLE in region of thigh. She does have LBP and thus could be meralgia paresthetica vs lumbar radiculaopthy. Advised EMG/NCS which can be done as outpatient. started patient on gabapentin 300 mg up to twice a day and she reports some relief of her numbness with this medication. Advised to continue taking the medication including as an outpatient. Should follow-up in the office for further management. Active Medications Acetaminophen (Tylenol -) 500 mg PO Q6H PRN PRN Reason: PAIN 4-6 Last Admin: 04/27/20 06:18 Dose: 500 mg Documented by: Aspirin (Ecotrin -) 325 mg PO DAILY [facility] Last Admin: 04/27/20 11:01 Dose: 325 mg Documented by: Atorvastatin Calcium (Lipitor -) 80 mg PO HS [facility] Last Admin: 04/27/20 21:13 Dose: 80 mg Documented by: Ferrous Sulfate (Feosol -) 325 mg PO TIDCM [facility] Last Admin: 04/27/20 18:14 Dose: 325 mg Documented by: Furosemide (Lasix Injection -) 40 mg IVPUSH DAILY [facility] Last Admin: 04/27/20 10:58 Dose: 40 mg Documented by: Gabapentin (Neurontin -) 300 mg PO BID [facility] Last Admin: 04/27/20 21:14 Dose: 300 mg Documented by: Lidocaine (Lidoderm Patch -) 1 patch TP DAILY [facility] Last Admin: 04/27/20 11:01 Dose: 1 patch Documented by: Miscellaneous (Lidoderm Patch Removal) 1 each MC DAILY@2200 [facility] Last Admin: 04/27/20 21:14 Dose: 1 each Documented by: Morphine Sulfate (Morphine Sulfate) 2 mg IVPUSH Q6H PRN PRN Reason: PAIN 7-10 Last Admin: 04/27/20 23:22 Dose: 2 mg Documented by: Nitrofurantoin Macrocrystals (Macrodantin -) 50 mg PO Q6HPO [facility] Last Admin: 04/28/20 06:16 Dose: 50 mg Documented by: Pantoprazole Sodium (Protonix -) 40 mg PO DAILY [facility] Last Admin: 04/27/20 10:57 Dose: 40 mg Documented by: Polyethylene Glycol (Miralax (For Daily Use) -) 17 gm PO DAILY [facility] Last Admin: 04/27/20 10:58 Dose: 17 gm Documented by: *Physical Exam - Vital Signs Vital Signs Period Temp Pulse Resp BP Sys/Rolle Pulse Ox Last 24 Hr 97.8 F-98.6 F 82-90 20-20 113-141/60-76 96-100 Constitutional: Yes: No Distress, Calm Eyes: Yes: Conjunctiva Clear, EOM Intact HENT: Yes: Atraumatic, Normocephalic Neck: Yes: Supple, Trachea Midline Respiratory: Yes: Regular, On Nasal O2, Rales Gastrointestinal: Yes: Normal Bowel Sounds, Soft Cardiovascular: Yes: Regular Rate and Rhythm JVD: No PMI: Non-Displaced Heart Sounds: Yes: S1, S2 Murmur: Yes: Systolic Murmur, Diastolic Murmur Edema: Yes Edema: LLE: 1+, RLE: 1+ Integumentary: No: Jaundice Neurological: Yes: Alert, Oriented, decreased PP and LT in RLE, moves e xtremities equally CBCD WBC 12.5 K/mm3 (4.0-10.0) H 04/28/20 06:10 RBC 5.09 M/mm3 (3.60-5.2) 04/28/20 06:10 Hgb 9.7 GM/dL (10.7-15.3) L 04/28/20 06:10 Hct 31.8 % (32.4-45.2) L 04/28/20 06:10 MCV 62.5 fl (80-96) L 04/28/20 06:10 MCHC 30.5 g/dl (32.0-36.0) L 04/28/20 06:10 RDW 16.7 % (11.6-15.6) H 04/28/20 06:10 Plt Count 316 K/MM3 (134-434) 04/28/20 06:10 MPV 10.2 fl (7.5-11.1) 04/28/20 06:10 CMP Sodium 136 mmol/L (136-145) 04/28/20 06:10 Potassium 4.0 mmol/L (3.5-5.1) 04/28/20 06:10 Chloride 96 mmol/L (98-107) L 04/28/20 06:10 Carbon Dioxide 31 mmol/L (21-32) 04/28/20 06:10 Anion Gap 9 MMOL/L (8-16) 04/28/20 06:10 BUN 39.8 mg/dL (7-18) H 04/28/20 06:10 Creatinine 1.3 mg/dL (0.55-1.3) 04/28/20 06:10 Random Glucose 105 mg/dL (74-106) 04/28/20 06:10 Calcium 9.8 mg/dL (8.5-10.1) 04/28/20 06:10 Total Bilirubin 0.8 mg/dL (0.2-1) 04/23/20 05:40 AST 14 U/L (15-37) L 04/23/20 05:40 ALT 17 U/L (13-61) 04/23/20 05:40 Alkaline Phosphatase 79 U/L (45-117) 04/23/20 05:40 Total Protein 6.7 g/dl (6.4-8.2) 04/23/20 05:40 Albumin 3.2 g/dl (3.4-5.0) L 04/23/20 05:40 CARDIAC ENZYMES Creatine Kinase 43 U/L (26-192) 04/23/20 05:40 Troponin I < 0.02 ng/ml (0.00-0.05) 04/23/20 05:40 Plan/ Assessment: 80F PMH PPM and valve replacement and repair (unsure which, [facility]) presenting with shortness of breath and pleuritic chest pain around the supraepigastric area described as band like and as if it were a muscle pull on day of admission. Pt started experiencing symptoms after waking up from a nap, did not take anything for symptoms thinking it would resolve. Pain 7/10 now. Takes ASA 325 daily. Endorses mild nausea. Endorsing dry cough for about a week and SOB with walking. No sick contacts or group jewish. Denies f/c, vision/hearing changes, headache, numbness, tingling, weakness, lightheadedness. Has chronic swelling of the legs but is no worse than normal. No personal hx malignancy or VTEs. PCP Arthur Arcos. Reduced PP on testing in RLE in region of thigh. She does have LBP and thus could be meralgia paresthetica vs lumbar radiculaopthy. Advised EMG/NCS which can be done as outpatient. started patient on gabapentin 300 mg up to twice a day and she reports some relief of her numbness with this medication. Advised to continue taking the medication including as an outpatient. Should follow-up in the office for further management. Fall precautions, continue medical and cardiac optimization. Cymbalta may also be considered but will pursue Hoa titration first.
--- NOTE | 2020-04-28 09:27 | PN ---
Progress Note, Physician History of Present Illness: no complains vss bun cret climbing ? lasix bid hasbledscore 2? 3? bm nl good apetite oob states feels better w o2 tx - Current Medication List Current Medications: Active Medications Acetaminophen (Tylenol -) 500 mg PO Q6H PRN PRN Reason: PAIN 4-6 Last Admin: 04/27/20 06:18 Dose: 500 mg Documented by: Aspirin (Ecotrin -) 325 mg PO DAILY [facility] Last Admin: 04/27/20 11:01 Dose: 325 mg Documented by: Atorvastatin Calcium (Lipitor -) 80 mg PO HS [facility] Last Admin: 04/27/20 21:13 Dose: 80 mg Documented by: Ferrous Sulfate (Feosol -) 325 mg PO TIDCM [facility] Last Admin: 04/27/20 18:14 Dose: 325 mg Documented by: Furosemide (Lasix Injection -) 40 mg IVPUSH DAILY [facility] Stop: 04/28/20 12:00 Last Admin: 04/27/20 10:58 Dose: 40 mg Documented by: Gabapentin (Neurontin -) 300 mg PO BID [facility] Last Admin: 04/27/20 21:14 Dose: 300 mg Documented by: Lidocaine (Lidoderm Patch -) 1 patch TP DAILY [facility] Last Admin: 04/27/20 11:01 Dose: 1 patch Documented by: Miscellaneous (Lidoderm Patch Removal) 1 each MC DAILY@2200 [facility] Last Admin: 04/27/20 21:14 Dose: 1 each Documented by: Morphine Sulfate (Morphine Sulfate) 2 mg IVPUSH Q6H PRN PRN Reason: PAIN 7-10 Last Admin: 04/27/20 23:22 Dose: 2 mg Documented by: Nitrofurantoin Macrocrystals (Macrodantin -) 100 mg PO BID [facility] Pantoprazole Sodium (Protonix -) 40 mg PO DAILY [facility] Last Admin: 04/27/20 10:57 Dose: 40 mg Documented by: Polyethylene Glycol (Miralax (For Daily Use) -) 17 gm PO DAILY [facility] Last Admin: 04/27/20 10:58 Dose: 17 gm Documented by: - Objective Vital Signs: Vital Signs Temperature 97.8 F 04/28/20 06:00 Pulse Rate 89 04/28/20 06:00 Respiratory Rate 20 04/28/20 06:00 Blood Pressure 137/74 04/28/20 06:00 O2 Sat by Pulse Oximetry (%) 100 04/28/20 01:51 Constitutional: Yes: Well Nourished, No Distress Eyes: Yes: WNL, Other Neck: Yes: WNL Cardiovascular: Yes: WNL, Regular Rate and Rhythm Respiratory: Yes: SOB on Exertion Gastrointestinal: Yes: WNL ...Rectal Exam: Yes: Deferred Genitourinary: Yes: WNL Breast(s): Yes: WNL Musculoskeletal: Yes: Back Pain Extremities: Yes: WNL Edema: No Peripheral Pulses WNL: Yes Peripheral Pulses: Left Radial: 1+, Right Radial: 1+, Left Doralis Pedis: 1+, Right Dorsalis Pedis: 1+, Left Femoral: 1+, Right Femoral: 1+ Integumentary: Yes: WNL Neurological: Yes: WNL ...Motor Strength: WNL Psychiatric: Yes: WNL Labs: CBC, BMP 04/28/20 06:10 04/28/20 06:10 INR, PTT INR 1.40 (0.83-1.09) H 04/22/20 19:56 Assessment/Plan stiill redfusing anticog tx reduse lasix once arvizu cont tx as is wbc high ?climb in bun cr? chk wbc basic in am ?d/c in am hasbled score 2 to ?3 roxanne 4 valvular
[2020-04-28] MEDS: FERROUS SO4 325 MG TABLET (FP) PO SCH ×3 (09:39→17:12)
[2020-04-28] MEDS: PANTOPRAZOLE 40 MG TABLET PO SCH (09:39)
[2020-04-28] MEDS: FUROSEMIDE 40 MG/4 ML INJECTABLE VIAL IVPUSH SCH (09:39)
[2020-04-28] MEDS: LIDOCAINE 5% TOPICAL PATCH TP SCH (09:39)
[2020-04-28] MEDS: GABAPENTIN 300 MG CAPSULE PO SCH ×2 (09:40→21:38)
[2020-04-28] MEDS: ASPIRIN 325 MG ENTERIC COATED TABLET (FP) PO SCH (09:40)
[2020-04-28] MEDS: POLYETHYLENE GLYCOL 3350 119 GM BTL PO SCH (09:41)
[2020-04-28] MEDS ORDERED: NITROFURANTOIN MACROCRYSTAL 50 MG CAPSULE (FP) PO SCH (10:00)
--- NOTE | 2020-04-28 10:45 | PN ---
Progress Note (short form) - Note Progress Note: Chief Complaint: chest pain History of Present Illness: 80F h/o ppm, bio AVR, MV repair at [facility], afib not on anticoagulatio p/w shortness of breath, chest pain. She saw Dr. Flores for cardio last in 2016, has been following at [facility] for ppm remotely but says she has not gone recently in person. Complains of worsening dyspnea, chest pain this morning but endorses shortness of breath with exertion for at least the last few months, possibly longer. no palps, syncope, dizziness no sob, no cp palps dizzy Current Medications Generic Name Dose Route Start Last Admin Trade Name Freq PRN Reason Stop Dose Admin Acetaminophen 500 mg 04/24/20 10:46 04/27/20 06:18 Tylenol - PO 500 mg Q6H PRN Administration PAIN 4-6 Aspirin 325 mg 04/23/20 10:00 04/28/20 09:40 Ecotrin - PO 325 mg DAILY [facility] Administration Atorvastatin Calcium 80 mg 04/23/20 22:00 04/27/20 21:13 Lipitor - PO 80 mg HS [facility] Administration Ferrous Sulfate 325 mg 04/23/20 08:00 04/28/20 09:39 Feosol - PO 325 mg TIDCM [facility] Administration Furosemide 40 mg 04/23/20 10:00 04/28/20 09:39 Lasix Injection - IVPUSH 04/28/20 12:00 40 mg DAILY [facility] Administration Gabapentin 300 mg 04/27/20 11:30 04/28/20 09:40 Neurontin - PO 300 mg BID [facility] Administration Lidocaine 1 patch 04/24/20 12:00 04/28/20 09:39 Lidoderm Patch - TP 1 patch DAILY [facility] Administration Miscellaneous 1 each 04/24/20 22:00 04/27/20 21:14 Lidoderm Patch Removal MC 1 each DAILY@2200 [facility] Administration Morphine Sulfate 2 mg 04/25/20 23:59 04/27/20 23:22 Morphine Sulfate IVPUSH 2 mg Q6H PRN Administration PAIN 7-10 Nitrofurantoin Macrocrystals 100 mg 04/28/20 10:00 Macrodantin - PO BID [facility] Pantoprazole Sodium 40 mg 04/23/20 10:00 04/28/20 09:39 Protonix - PO 40 mg DAILY [facility] Administration Polyethylene Glycol 17 gm 04/25/20 10:00 04/28/20 09:41 Miralax (For Daily Use) - PO 17 gm DAILY [facility] Administration Vital Signs Period Temp Pulse Resp BP Sys/Rolle Pulse Ox Last 24 Hr 97.8 F-98.6 F 82-109 20-20 113-141/62-76 95-100 Constitutional: Yes: No Distress, Calm Eyes: Yes: Conjunctiva Clear Neck: Yes: Supple, Trachea Midline Respiratory: Yes: Regular, On Nasal O2, Rales Gastrointestinal: Yes: Normal Bowel Sounds, Soft Cardiovascular: Yes: Regular Rate and Rhythm JVD: No Heart Sounds: Yes: S1, S2 Murmur: Yes: Systolic Murmur, Diastolic Murmur Edema: no Integumentary: No: Jaundice Neurological: Yes: Alert, Oriented Psychiatric: No: Agitated - Other Data Labs, Other Data: CBC, BMP 04/28/20 06:10 04/28/20 06:10 Assessment/Plan tele: sr, occ pacing EKG: sinus, LAD, old anterior infarct, old inferior infarct echo 04/2020 nl LV function, mildly dilated RV with mildly reduced functio, doming of anterior MV leaflet suggests past rheumatic disease, mod MS, mod TR, severe pulm HTN, normally functioning bioprosthetic valve 80F h/o ppm, bio AVR, MV repair at [facility], afib not on anticoagulation p/w shortness of breath, chest pain shortness of breath, chest pain, acute diastolic heart failure exacerbation: -trop neg x 2 stable EKG - less likely ACS - echo here with nl LV function with severe pulmonary hypertension, RV dysfunction, moderate MS -improved with iv lasix, changed to po now moderate MS, severe pulm HTN, s/p bio AVR: - history of severe , severe MR and moderate MS; s/p bio AVR, MV repair in 2014 at [facility] - has several month history of dyspnea on exertion with moderate MS and severe pulm HTN on echo - has not followed up with cardiology since 2015 - normal bio AVR function - will need repeat echo as outpt when euvolemic to reassess valves afib: - noted on ppm in the past - refused anticoagulation - cont aspirin s/p ppm: - outpatient follow up
[2020-04-28 11:01] LABS: ANISOCYTOSIS 1+; MACROCYTOSIS 0; OVALOCYTE 1+; PLATELET ESTIMATE NORMAL; TEAR DROP CELLS 1+
[2020-04-28 11:02] LABS: N-TERMINAL BNP 307.8 pg/ml (5-450)
--- NOTE | 2020-04-28 11:50 | PN ---
Progress Note (short form) - Note Progress Note: PULMONARY Denies shortness of breath, chest pain, cough. Vital Signs Period Temp Pulse Resp BP Sys/Rolle Pulse Ox Last 24 Hr 97.8 F-98.6 F 82-109 20-20 113-141/62-76 95-100 Gen: NAD in chair Heart: RRR Lung: decreased breath sounds at the bases Abd: soft, nontender Ext: distal edema CBC, BMP 04/28/20 06:10 04/28/20 06:10 Active Medications Acetaminophen (Tylenol -) 500 mg PO Q6H PRN PRN Reason: PAIN 4-6 Last Admin: 04/27/20 06:18 Dose: 500 mg Documented by: Aspirin (Ecotrin -) 325 mg PO DAILY [facility] Last Admin: 04/28/20 09:40 Dose: 325 mg Documented by: Atorvastatin Calcium (Lipitor -) 80 mg PO HS [facility] Last Admin: 04/27/20 21:13 Dose: 80 mg Documented by: Ferrous Sulfate (Feosol -) 325 mg PO TIDCM [facility] Last Admin: 04/28/20 09:39 Dose: 325 mg Documented by: Furosemide (Lasix Injection -) 40 mg IVPUSH DAILY [facility] Stop: 04/28/20 12:00 Last Admin: 04/28/20 09:39 Dose: 40 mg Documented by: Gabapentin (Neurontin -) 300 mg PO BID [facility] Last Admin: 04/28/20 09:40 Dose: 300 mg Documented by: Lidocaine (Lidoderm Patch -) 1 patch TP DAILY [facility] Last Admin: 04/28/20 09:39 Dose: 1 patch Documented by: Miscellaneous (Lidoderm Patch Removal) 1 each MC DAILY@2200 [facility] Last Admin: 04/27/20 21:14 Dose: 1 each Documented by: Morphine Sulfate (Morphine Sulfate) 2 mg IVPUSH Q6H PRN PRN Reason: PAIN 7-10 Last Admin: 04/27/20 23:22 Dose: 2 mg Documented by: Nitrofurantoin Macrocrystals (Macrodantin -) 100 mg PO BID [facility] Pantoprazole Sodium (Protonix -) 40 mg PO DAILY [facility] Last Admin: 04/28/20 09:39 Dose: 40 mg Documented by: Polyethylene Glycol (Miralax (For Daily Use) -) 17 gm PO DAILY [facility] Last Admin: 04/28/20 09:41 Dose: 17 gm Documented by: A/P Acute on Chronic Diastolic Heart Failure Pulmonary HTN Atrial Fibrillation s/p PPM h/o bio AVR h/o MV repair - continue lasix - monitor urine output, creatinine - daily weights - rate control - pain control - monitor CXR with diuresis - when ready for discharge, check ambulatory SpO2 on room air to assess for home O2 - DVT prophylaxis
[2020-04-28] MEDS ORDERED: FUROSEMIDE 40 MG TABLET (FP) PO SCH (14:00)
[2020-04-28] MEDS: ATORVASTATIN CA 80 MG TABLET (FP) PO SCH (21:37)
[2020-04-28] MEDS: LIDOCAINE PATCH REMOVAL MC SCH (21:38)
[2020-04-28] MEDS ORDERED: PT OWN MED DRAWER 7, Y5N ONE (22:38)
[2020-04-28] MEDS: MORPHINE SULFATE 2 MG/ML VIAL IVPUSH PRN (23:30)
--- NOTE | 2020-04-29 00:03 | PN ---
DATE OF VISIT: DATE OF DICTATION: 04/28/2020 HISTORY OF PRESENT ILLNESS: The patient is a 80-year-old female with long cardiac history is admitted with chest pain and epigastric pain. Patient takes 325 mg aspirin daily. She does have some low back pain, more on the right than the left, also complains of some frequency and nocturia x2. Her BUN and creatinine are 31/1.3. An ultrasound of her kidneys revealed right renal pelvic stones, 1 measuring 2 cm, the other measuring 1 cm. There was no hydronephrosis. Patient has undergone placement of a pacemaker, a mitral valve replacement, and a ventricular assist device. She has also undergone cataract surgery. Presently, her urine shows no growth. Urinalysis was trace positive for blood, negative for nitrates. Her vital signs are stable with blood pressure of 130/68. IMPRESSION: At present is right nephrolithiasis with microscopic hematuria and minimal flank pain, will recommend an elective ambulatory extracorporeal shockwave lithotripsy as an outpatient. Will follow with you. Shereen [id number]
[2020-04-29 06:54] LABS: BASO % 0.7 % (0-2.0); EOS % 2.2 % (0-4.5); HEMATOCRIT 29.9 % (32.4-45.2); HEMOGLOBIN 9.3 GM/dL (10.7-15.3); LYMPH % 8.8 % (8-40); MEAN CELL VOLUME 61.7 fl (80-96); MEAN PLT VOLUME 10.6 fl (7.5-11.1); MONO % 7.9 % (3.8-10.2); NEUT % 80.4 % (42.8-82.8); PLATELET COUNT 295 K/MM3 (134-434); RBC 4.84 M/mm3 (3.60-5.2); WHITE BLOOD COUNT 14.2 K/mm3 (4.0-10.0)
[2020-04-29 06:55] LABS: MCH 19.1 pg (25.7-33.7)
[2020-04-29 07:19] LABS: BLOOD UREA NITROGEN 41.8 mg/dL (7-18); CALCIUM 9.2 mg/dL (8.5-10.1); POTASSIUM 3.9 mmol/L (3.5-5.1)
[2020-04-29 07:23] LABS: CREATININE 1.3 mg/dL (0.55-1.3)
--- NOTE | 2020-04-29 08:33 | PN ---
Progress Note (short form) - Note Progress Note: Neurology History of Present Illness Chief Complaint: Shortness of Breath Stated Complaint: Right thigh numbness - History of Present Illness Initial Comments: 80F PMH PPM and valve replacement and repair (unsure which, [facility]) presenting with shortness of breath and pleuritic chest pain around the supraepigastric area described as band like and as if it were a muscle pull on day of admission. Pt started experiencing symptoms after waking up from a nap, did not take anything for symptoms thinking it would resolve. Pain 7/10 now. Takes ASA 325 daily. Endorses mild nausea. Endorsing dry cough for about a week and SOB with walking. No sick contacts or group baptism. Denies f/c, vision/hearing changes, headache, numbness, tingling, weakness, lightheadedness. Has chronic swelling of the legs but is no worse than normal. No personal hx malignancy or VTEs. PCP. Pt with complaints of right thigh numbness 04/26 am, consult for neurology. Reduced PP on testing in RLE in region of thigh. She does have LBP and thus could be meralgia paresthetica vs lumbar radiculaopthy. Advised EMG/NCS which can be done as outpatient. started patient on gabapentin 300 mg up to twice a day and she reports some relief of her numbness with this medication. Advised to continue taking the medication including as an outpatient. Should follow-up in the office for further management. Neurologically otherwise stable at this time. Active Medications Acetaminophen (Tylenol -) 500 mg PO Q6H PRN PRN Reason: PAIN 4-6 Last Admin: 04/27/20 06:18 Dose: 500 mg Documented by: Aspirin (Ecotrin -) 325 mg PO DAILY [facility] Last Admin: 04/28/20 09:40 Dose: 325 mg Documented by: Atorvastatin Calcium (Lipitor -) 80 mg PO HS [facility] Last Admin: 04/28/20 21:37 Dose: 80 mg Documented by: Ferrous Sulfate (Feosol -) 325 mg PO TIDCM [facility] Last Admin: 04/28/20 17:12 Dose: 325 mg Documented by: Gabapentin (Neurontin -) 300 mg PO BID [facility] Last Admin: 04/28/20 21:38 Dose: 300 mg Documented by: Lidocaine (Lidoderm Patch -) 1 patch TP DAILY [facility] Last Admin: 04/28/20 09:39 Dose: 1 patch Documented by: Miscellaneous (Lidoderm Patch Removal) 1 each MC DAILY@2200 [facility] Last Admin: 04/28/20 21:38 Dose: 1 each Documented by: Pantoprazole Sodium (Protonix -) 40 mg PO DAILY [facility] Last Admin: 04/28/20 09:39 Dose: 40 mg Documented by: Polyethylene Glycol (Miralax (For Daily Use) -) 17 gm PO DAILY [facility] Last Admin: 04/28/20 09:41 Dose: 17 gm Documented by: *Physical Exam - Vital Signs Vital Signs Period Temp Pulse Resp BP Sys/Rolle Pulse Ox Last 24 Hr 98.1 F-98.7 F 84-109 20-20 119-131/62-76 95-97 Constitutional: Yes: No Distress, Calm Eyes: Yes: Conjunctiva Clear, EOM Intact HENT: Yes: Atraumatic, Normocephalic Neck: Yes: Supple, Trachea Midline Respiratory: Yes: Regular, On Nasal O2, Rales Gastrointestinal: Yes: Normal Bowel Sounds, Soft Cardiovascular: Yes: Regular Rate and Rhythm JVD: No PMI: Non-Displaced Heart Sounds: Yes: S1, S2 Murmur: Yes: Systolic Murmur, Diastolic Murmur Edema: Yes Edema: LLE: 1+, RLE: 1+ Integumentary: No: Jaundice Neurological: Yes: Alert, Oriented, decreased PP and LT in RLE, moves extremities equally CBCD WBC 14.2 K/mm3 (4.0-10.0) H 04/29/20 06:00 RBC 4.84 M/mm3 (3.60-5.2) 04/29/20 06:00 Hgb 9.3 GM/dL (10.7-15.3) L 04/29/20 06:00 Hct 29.9 % (32.4-45.2) L 04/29/20 06:00 MCV 61.7 fl (80-96) L 04/29/20 06:00 MCHC 31.0 g/dl (32.0-36.0) L 04/29/20 06:00 RDW 17.0 % (11.6-15.6) H 04/29/20 06:00 Plt Count 295 K/MM3 (134-434) 04/29/20 06:00 MPV 10.6 fl (7.5-11.1) 04/29/20 06:00 CMP Sodium 135 mmol/L (136-145) L 04/29/20 06:00 Potassium 3.9 mmol/L (3.5-5.1) 04/29/20 06:00 Chloride 95 mmol/L (98-107) L 04/29/20 06:00 Carbon Dioxide 33 mmol/L (21-32) H 04/29/20 06:00 Anion Gap 6 MMOL/L (8-16) L 04/29/20 06:00 BUN 41.8 mg/dL (7-18) H 04/29/20 06:00 Creatinine 1.3 mg/dL (0.55-1.3) 04/29/20 06:00 Random Glucose 109 mg/dL (74-106) H 04/29/20 06:00 Calcium 9.2 mg/dL (8.5-10.1) 04/29/20 06:00 Total Bilirubin 0.8 mg/dL (0.2-1) 04/23/20 05:40 AST 14 U/L (15-37) L 04/23/20 05:40 ALT 17 U/L (13-61) 04/23/20 05:40 Alkaline Phosphatase 79 U/L (45-117) 04/23/20 05:40 Total Protein 6.7 g/dl (6.4-8.2) 04/23/20 05:40 Albumin 3.2 g/dl (3.4-5.0) L 04/23/20 05:40 CARDIAC ENZYMES Creatine Kinase 43 U/L (26-192) 04/23/20 05:40 Troponin I < 0.02 ng/ml (0.00-0.05) 04/23/20 05:40 Plan/ Assessment: 80F PMH PPM and valve replacement and repair (unsure which, [facility]) presenting with shortness of breath and pleuritic chest pain around the supraepigastric area described as band like and as if it were a muscle pull on day of admission. Pt started experiencing symptoms after waking up from a nap, did not take anything for symptoms thinking it would resolve. Pain 7/10 now. Takes ASA 325 daily. Endorses mild nausea. Endorsing dry cough for about a week and SOB with walking. No sick contacts or group baptism. Denies f/c, vision/hearing changes, headache, numbness, tingling, weakness, lightheadedness. Has chronic swelling of the legs but is no worse than normal. No personal hx malignancy or VTEs. PCP Arthur Arcos. Reduced PP on testing in RLE in region of thigh. She does have LBP and thus could be meralgia paresthetica vs lumbar radiculaopthy. Advised EMG/NCS which can be done as outpatient. started patient on gabapentin 300 mg up to twice a day and she reports some relief of her numbness with this medication. Advised to continue taking the medication including as an outpatient. Should follow-up in the office for further management. Fall precautions, continue medical and cardiac optimization. Cymbalta may also be considered but will pursue Hoa titration first. No further recommmendations at this time, neurologically stable.
[2020-04-29] MEDS ORDERED: PT OWN MED DRAWER 7, Y5N ONE ×3 (09:16→20:29)
[2020-04-29] MEDS: ASPIRIN 325 MG ENTERIC COATED TABLET (FP) PO SCH (09:43)
[2020-04-29] MEDS: PANTOPRAZOLE 40 MG TABLET PO SCH (09:43)
[2020-04-29] MEDS: FERROUS SO4 325 MG TABLET (FP) PO SCH ×3 (09:43→18:12)
[2020-04-29] MEDS: LIDOCAINE 5% TOPICAL PATCH TP SCH (09:43)
[2020-04-29] MEDS: GABAPENTIN 300 MG CAPSULE PO SCH ×2 (09:44→22:22)
[2020-04-29] MEDS: POLYETHYLENE GLYCOL 3350 119 GM BTL PO SCH (09:44)
[2020-04-29] MEDS: metroNIDAZOLE 500 MG TABLET PO SCH ×2 (10:58→22:22)
--- NOTE | 2020-04-29 11:22 | PN ---
Progress Note, Physician History of Present Illness: feels better less sob with o2 tx 87%sat r/m air post 92% sat ct rt mass ? ovary cxr incresed venoyse congestion bnp less b/c rising oob apetite good nl bm no diarrea nor abd pain rt cvat n/c - Current Medication List Current Medications: Active Medications Acetaminophen (Tylenol -) 500 mg PO Q6H PRN PRN Reason: PAIN 4-6 Last Admin: 04/27/20 06:18 Dose: 500 mg Documented by: Aspirin (Ecotrin -) 325 mg PO DAILY [facility] Last Admin: 04/29/20 09:43 Dose: 325 mg Documented by: Atorvastatin Calcium (Lipitor -) 80 mg PO HS [facility] Last Admin: 04/28/20 21:37 Dose: 80 mg Documented by: Ferrous Sulfate (Feosol -) 325 mg PO TIDCM [facility] Last Admin: 04/29/20 09:43 Dose: 325 mg Documented by: Furosemide (Lasix -) 40 mg PO DAILY [facility] Gabapentin (Neurontin -) 300 mg PO BID [facility] Last Admin: 04/29/20 09:44 Dose: 300 mg Documented by: Lidocaine (Lidoderm Patch -) 1 patch TP DAILY [facility] Last Admin: 04/29/20 09:43 Dose: 1 patch Documented by: Metronidazole (Flagyl -) 500 mg PO BID [facility] Stop: 05/04/20 23:59 Last Admin: 04/29/20 10:58 Dose: 500 mg Documented by: Miscellaneous (Lidoderm Patch Removal) 1 each MC DAILY@2200 [facility] Last Admin: 04/28/20 21:38 Dose: 1 each Documented by: Pantoprazole Sodium (Protonix -) 40 mg PO DAILY [facility] Last Admin: 04/29/20 09:43 Dose: 40 mg Documented by: - Objective Vital Signs: Vital Signs Temperature 98.3 F 04/29/20 10:00 Pulse Rate 97 H 04/29/20 10:00 Respiratory Rate 04/29/20 10:00 Blood Pressure 115/53 L 04/29/20 10:00 O2 Sat by Pulse Oximetry (%) 95 04/29/20 10:00 Constitutional: Yes: No Distress Eyes: Yes: WNL HENT: Yes: WNL Neck: Yes: WNL Cardiovascular: Yes: Regular Rate and Rhythm Respiratory: Yes: SOB on Exertion Gastrointestinal: Yes: WNL ...Rectal Exam: Yes: Deferred Genitourinary: Yes: WNL, Urethral Discharge Breast(s): Yes: Gynecomastia Extremities: Yes: WNL Edema: No Peripheral Pulses WNL: Yes Peripheral Pulses: Left Radial: 1+, Right Radial: 1+, Left Doralis Pedis: 1+, Right Dorsalis Pedis: 1+, Left Femoral: 1+, Right Femoral: 1+ Integumentary: Yes: WNL Neurological: Yes: WNL ...Motor Strength: WNL Psychiatric: Yes: WNL Labs: CBC, BMP 04/29/20 06:00 04/29/20 06:00 INR, PTT INR 1.40 (0.83-1.09) H 04/22/20 19:56 Assessment/Plan ? caRDIORENAL SYNDROME?? TR OV [place] PND VIGNESH DIURESIS SPOKE TO DR GUERRERO FLAGLY ? COLITIS RADIOGRAFIC DX? RENAL H/H W/U IN PROGRESS WATCH PT CLINICALLY BUN /CR RISE D/C MIRALAX
--- NOTE | 2020-04-29 12:14 | PN ---
Progress Note (short form) - Note Progress Note: cc: chest pain s: feels like she can't take deep breaths. no chest pain, palps, dizziness Current Medications Generic Name Dose Route Start Last Admin Trade Name Bao PRN Reason Stop Dose Admin Acetaminophen 500 mg 04/24/20 10:46 04/27/20 06:18 Tylenol - PO 500 mg Q6H PRN Administration PAIN 4-6 Aspirin 325 mg 04/23/20 10:00 04/29/20 09:43 Ecotrin - PO 325 mg DAILY [facility] Administration Atorvastatin Calcium 80 mg 04/23/20 22:00 04/28/20 21:37 Lipitor - PO 80 mg HS [facility] Administration Ferrous Sulfate 325 mg 04/23/20 08:00 04/29/20 09:43 Feosol - PO 325 mg TIDCM [facility] Administration Furosemide 40 mg 04/30/20 10:00 Lasix - PO DAILY [facility] Gabapentin 300 mg 04/27/20 11:30 04/29/20 09:44 Neurontin - PO 300 mg BID [facility] Administration Lidocaine 1 patch 04/24/20 12:00 04/29/20 09:43 Lidoderm Patch - TP 1 patch DAILY [facility] Administration Metoprolol Succinate 25 mg 04/30/20 10:00 Toprol Xl - PO DAILY [facility] Metronidazole 500 mg 04/29/20 10:00 04/29/20 10:58 Flagyl - PO 05/04/20 23:59 500 mg BID [facility] Administration Miscellaneous 1 each 04/24/20 22:00 04/28/20 21:38 Lidoderm Patch Removal MC 1 each DAILY@2200 [facility] Administration Pantoprazole Sodium 40 mg 04/23/20 10:00 04/29/20 09:43 Protonix - PO 40 mg DAILY [facility] Administration Vital Signs Period Temp Pulse Resp BP Sys/Rolle Pulse Ox Last 24 Hr 98.1 F-98.7 F 93-97 20-20 115-127/53-76 95-97 Constitutional: Yes: No Distress, Calm Eyes: Yes: Conjunctiva Clear Neck: Yes: Supple, Trachea Midline Respiratory: Yes: Regular, On Nasal O2, Rales Gastrointestinal: Yes: Normal Bowel Sounds, Soft Cardiovascular: Yes: Regular Rate and Rhythm JVD: No Heart Sounds: Yes: S1, S2 Murmur: Yes: Systolic Murmur, Diastolic Murmur Edema: no Integumentary: No: Jaundice Neurological: Yes: Alert, Oriented Psychiatric: No: Agitated Assessment/Plan tele: EKG: sinus, LAD, old anterior infarct, old inferior infarct echo 04/2020 nl LV function, mildly dilated RV with mildly reduced functio, doming of anterior MV leaflet suggests past rheumatic disease, mod MS, mod TR, severe pulm HTN, normally functioning bioprosthetic valve 79F h/o ppm, bio AVR, [place] [facility] [place] afib not on anticoagulation p/w shortness of breath, chest pain shortness of breath, chest pain, acute diastolic heart failure exacerbation: -trop neg x 2 stable EKG - less likely ACS - echo here with nl LV function with severe pulmonary hypertension, RV dysfunction, moderate MS -improved with iv lasix, had rising BUN. changed to po lasix however has increased congestion on CXR, still requiring O2 and difficulty breathing - will give lasix 40 mg IV today, monitor Cr, lytes moderate MS, severe pulm HTN, s/p bio AVR: - history of severe , severe MR and moderate MS; s/p bio AVR, [place] 2014 [place] [facility] [place] has several month history of dyspnea on exertion with moderate MS and severe pulm HTN on echo - has not followed up with cardiology since 2016 - normal bio AVR function - will need repeat echo as outpt when euvolemic to reassess valves afib: - noted on ppm in the past - refused anticoagulation - cont aspirin s/p ppm: - outpatient follow up
[2020-04-29] MEDS ORDERED: FUROSEMIDE 40 MG/4 ML INJECTABLE VIAL IVPUSH ONE (12:45)
--- NOTE | 2020-04-29 13:05 | CON.ID ---
Consult Consult Specialty:: infectious diseases Referred by:: dr loera Reason for Consultation:: diverticulitis,leukocytosis - History of Present Illness Chief Complaint: sob,distension of abd - Past Medical History Cardio/Vascular: Yes: Mitral Stenosis, Other (pacemaker m/v prothetic valve sx mas on echo rt vent prees high no ef noted ?hfpef) Pulmonary: Yes: Other (chf) ...: No ENT: Yes: Other (catarract sx) - Past Surgical History Past Surgical History: Yes: Cataract Removal, Permanent Pacemaker, Valve Replacement - Alcohol/Substance Use Hx Alcohol Use: No History of Substance Use: reports: None - Smoking History Smoking history: Unknown if ever smoked Have you smoked in the past 12 months: No - Social History ADL: Support Services History of Recent Travel: No Home Medications - Allergies Allergies/Adverse Reactions: Allergies Allergy/AdvReac Type Severity Reaction Status Date / Time No Known Allergies Allergy Verified 04/27/20 11:46 - Home Medications Home Medications: Ambulatory Orders Aspirin/Calcium Carbonate [[facility] Women's Aspirin Tablet] 1 each PO 04/23/20 Furosemide 20 mg PO 04/23/20 Metoprolol Succinate 100 mg PO 04/23/20 Family Medical History Family History: Unremarkable Physical Exam Vital Signs: Vital Signs Temperature 98.3 F 04/29/20 10:00 Pulse Rate 97 H 04/29/20 10:00 Respiratory Rate 04/29/20 10:00 Blood Pressure 115/53 L 04/29/20 10:00 O2 Sat by Pulse Oximetry (%) 95 04/29/20 10:00 Labs: CBC, BMP 04/29/20 06:00 04/29/20 06:00
--- NOTE | 2020-04-29 14:58 | PN ---
Progress Note, Physician History of Present Illness: pulmonary alert,oob-chair,comfortable,sob improving - Current Medication List Current Medications: Active Medications Acetaminophen (Tylenol -) 500 mg PO Q6H PRN PRN Reason: PAIN 4-6 Last Admin: 04/27/20 06:18 Dose: 500 mg Documented by: Aspirin (Ecotrin -) 325 mg PO DAILY [facility] Last Admin: 04/29/20 09:43 Dose: 325 mg Documented by: Atorvastatin Calcium (Lipitor -) 80 mg PO HS [facility] Last Admin: 04/28/20 21:37 Dose: 80 mg Documented by: Ferrous Sulfate (Feosol -) 325 mg PO TIDCM [facility] Last Admin: 04/29/20 13:13 Dose: 325 mg Documented by: Furosemide (Lasix -) 40 mg PO DAILY [facility] Gabapentin (Neurontin -) 300 mg PO BID [facility] Last Admin: 04/29/20 09:44 Dose: 300 mg Documented by: Lidocaine (Lidoderm Patch -) 1 patch TP DAILY [facility] Last Admin: 04/29/20 09:43 Dose: 1 patch Documented by: Metoprolol Succinate (Toprol Xl -) 25 mg PO DAILY [facility] Metronidazole (Flagyl -) 500 mg PO BID [facility] Stop: 05/04/20 23:59 Last Admin: 04/29/20 10:58 Dose: 500 mg Documented by: Miscellaneous (Lidoderm Patch Removal) 1 each MC DAILY@2200 [facility] Last Admin: 04/28/20 21:38 Dose: 1 each Documented by: Pantoprazole Sodium (Protonix -) 40 mg PO DAILY [facility] Last Admin: 04/29/20 09:43 Dose: 40 mg Documented by: - Objective Vital Signs: Vital Signs Temperature 99.3 F 04/29/20 14:00 Pulse Rate 93 H 04/29/20 14:00 Respiratory Rate 18 04/29/20 14:00 Blood Pressure 130/52 L 04/29/20 14:00 O2 Sat by Pulse Oximetry (%) 95 04/29/20 10:00 Constitutional: Yes: Well Nourished, Calm Eyes: Yes: WNL HENT: Yes: WNL Neck: Yes: WNL Cardiovascular: Yes: Pulse Irregular, S1, S2 Respiratory: Yes: Diminished Gastrointestinal: Yes: Normal Bowel Sounds, Soft Extremities: Yes: WNL Edema: Yes Labs: CBC, BMP 04/29/20 06:00 04/29/20 06:00 INR, PTT INR 1.40 (0.83-1.09) H 04/22/20 19:56 Problem List - Problems (1) Pulmonary HTN Code(s): I27.20 - PULMONARY HYPERTENSION, UNSPECIFIED (2) Chest pain Code(s): R07.9 - CHEST PAIN, UNSPECIFIED (3) Shortness of breath Code(s): R06.02 - SHORTNESS OF BREATH (4) CHF (congestive heart failure) Code(s): I50.9 - HEART FAILURE, UNSPECIFIED Assessment/Plan Assessment/Plan Acute on Chronic Diastolic Heart Failure Pulmonary HTN Atrial Fibrillation s/p PPM h/o bio AVR h/o MV repair - Pain control - lasix - monitor urine output, creatinine - daily weight - pain control - monitor CXR with diuresis - when ready for discharge, check ambulatory SpO2 on room air to assess for home O2 - DVT prophylaxis DR HINKLE
[2020-04-29] MEDS: ATORVASTATIN CA 80 MG TABLET (FP) PO SCH (22:22)
[2020-04-29] MEDS: LIDOCAINE PATCH REMOVAL MC SCH (22:22)
[2020-04-29] MEDS: ACETAMINOPHEN 500 MG TABLET (FP) PO PRN (22:23)
[2020-04-29] MEDS ORDERED: MORPHINE SULFATE 2 MG/ML VIAL IVPUSH PRN (22:59)
[2020-04-30 06:57] LABS: BASO % 0.9 % (0-2.0); EOS % 3.8 % (0-4.5); HEMATOCRIT 28.7 % (32.4-45.2); HEMOGLOBIN 8.9 GM/dL (10.7-15.3); MCHC 30.9 g/dl (32.0-36.0); MEAN CELL VOLUME 61.8 fl (80-96); MEAN PLT VOLUME 10.5 fl (7.5-11.1); MONO % 7.7 % (3.8-10.2); NEUT % 73.6 % (42.8-82.8); PLATELET COUNT 275 K/MM3 (134-434); RBC 4.65 M/mm3 (3.60-5.2); RDW 16.7 % (11.6-15.6); WHITE BLOOD COUNT 10.1 K/mm3 (4.0-10.0)
[2020-04-30 07:09] LABS: MCH 19.1 pg (25.7-33.7)
--- NOTE | 2020-04-30 07:14 | PN ---
Progress Note, Physician History of Present Illness: pulmonary awake,alert,oob-chair,-sob - Current Medication List Current Medications: Active Medications Acetaminophen (Tylenol -) 500 mg PO Q6H PRN PRN Reason: PAIN 4-6 Last Admin: 04/29/20 22:23 Dose: 500 mg Documented by: Aspirin (Ecotrin -) 325 mg PO DAILY [facility] Last Admin: 04/29/20 09:43 Dose: 325 mg Documented by: Atorvastatin Calcium (Lipitor -) 80 mg PO HS [facility] Last Admin: 04/29/20 22:22 Dose: 80 mg Documented by: Ferrous Sulfate (Feosol -) 325 mg PO TIDCM [facility] Last Admin: 04/29/20 18:12 Dose: 325 mg Documented by: Furosemide (Lasix -) 40 mg PO DAILY [facility] Gabapentin (Neurontin -) 300 mg PO BID [facility] Last Admin: 04/29/20 22:22 Dose: 300 mg Documented by: Lidocaine (Lidoderm Patch -) 1 patch TP DAILY [facility] Last Admin: 04/29/20 09:43 Dose: 1 patch Documented by: Metoprolol Succinate (Toprol Xl -) 25 mg PO DAILY [facility] Metronidazole (Flagyl -) 500 mg PO BID [facility] Stop: 05/04/20 23:59 Last Admin: 04/29/20 22:22 Dose: 500 mg Documented by: Miscellaneous (Lidoderm Patch Removal) 1 each MC DAILY@2200 [facility] Last Admin: 04/29/20 22:22 Dose: Not Given Documented by: Morphine Sulfate (Morphine Sulfate) 2 mg IVPUSH Q6H PRN PRN Reason: PAIN LEVEL 7-10 Last Admin: 04/29/20 23:13 Dose: 2 mg Documented by: Pantoprazole Sodium (Protonix -) 40 mg PO DAILY [facility] Last Admin: 04/29/20 09:43 Dose: 40 mg Documented by: - Objective Vital Signs: Vital Signs Temperature 98 F 04/30/20 06:00 Pulse Rate 71 04/30/20 06:00 Respiratory Rate 20 04/30/20 06:00 Blood Pressure 116/66 04/30/20 06:00 O2 Sat by Pulse Oximetry (%) 96 04/30/20 06:00 Constitutional: Yes: Well Nourished, Calm Eyes: Yes: WNL HENT: Yes: WNL Neck: Yes: WNL Cardiovascular: Yes: Pulse Irregular, S1, S2 Respiratory: Yes: CTA Bilaterally Gastrointestinal: Yes: Normal Bowel Sounds, Soft Extremities: Yes: WNL Edema: Yes Labs: CBC, BMP 04/30/20 06:10 INR, PTT INR 1.40 (0.83-1.09) H 04/22/20 19:56 Problem List - Problems (1) Pulmonary HTN Code(s): I27.20 - PULMONARY HYPERTENSION, UNSPECIFIED (2) Chest pain Code(s): R07.9 - CHEST PAIN, UNSPECIFIED (3) Shortness of breath Code(s): R06.02 - SHORTNESS OF BREATH (4) CHF (congestive heart failure) Code(s): I50.9 - HEART FAILURE, UNSPECIFIED Assessment/Plan Assessment/Plan Acute on Chronic Diastolic Heart Failure Pulmonary HTN Atrial Fibrillation s/p PPM h/o bio AVR h/o MV repair - Pain control - lasix - monitor urine output, creatinine - daily weight - monitor CXR with diuresis - when ready for discharge, check ambulatory SpO2 on room air to assess for home O2 - DVT prophylaxis DR HINKLE
[2020-04-30 07:23] LABS: BLOOD UREA NITROGEN 41.8 mg/dL (7-18); CREATININE 1.2 mg/dL (0.55-1.3); POTASSIUM 3.7 mmol/L (3.5-5.1)
[2020-04-30] MEDS ORDERED: PT OWN MED DRAWER 7, Y5N ONE (09:44)
[2020-04-30] MEDS ORDERED: FUROSEMIDE 40 MG TABLET (FP) PO SCH (10:00)
[2020-04-30] MEDS ORDERED: metoPROLOL SUCCINATE 25 MG TAB.SR.24H (FP) PO SCH (10:00)
--- NOTE | 2020-04-30 10:01 | PN ---
Progress Note, Physician History of Present Illness: patient stable no complaints says she is breathing well - Current Medication List Current Medications: Active Medications Acetaminophen (Tylenol -) 500 mg PO Q6H PRN PRN Reason: PAIN 4-6 Last Admin: 04/29/20 22:23 Dose: 500 mg Documented by: Aspirin (Ecotrin -) 325 mg PO DAILY [facility] Last Admin: 04/29/20 09:43 Dose: 325 mg Documented by: Atorvastatin Calcium (Lipitor -) 80 mg PO HS [facility] Last Admin: 04/29/20 22:22 Dose: 80 mg Documented by: Ferrous Sulfate (Feosol -) 325 mg PO TIDCM [facility] Last Admin: 04/29/20 18:12 Dose: 325 mg Documented by: Furosemide (Lasix -) 40 mg PO DAILY [facility] Gabapentin (Neurontin -) 300 mg PO BID [facility] Last Admin: 04/29/20 22:22 Dose: 300 mg Documented by: Lidocaine (Lidoderm Patch -) 1 patch TP DAILY [facility] Last Admin: 04/29/20 09:43 Dose: 1 patch Documented by: Metoprolol Succinate (Toprol Xl -) 25 mg PO DAILY [facility] Metronidazole (Flagyl -) 500 mg PO BID [facility] Stop: 05/04/20 23:59 Last Admin: 04/29/20 22:22 Dose: 500 mg Documented by: Miscellaneous (Lidoderm Patch Removal) 1 each MC DAILY@2200 [facility] Last Admin: 04/29/20 22:22 Dose: Not Given Documented by: Morphine Sulfate (Morphine Sulfate) 2 mg IVPUSH Q6H PRN PRN Reason: PAIN LEVEL 7-10 Last Admin: 04/29/20 23:13 Dose: 2 mg Documented by: Pantoprazole Sodium (Protonix -) 40 mg PO DAILY [facility] Last Admin: 04/29/20 09:43 Dose: 40 mg Documented by: - Objective Vital Signs: Vital Signs Temperature 98 F 04/30/20 06:00 Pulse Rate 71 04/30/20 06:00 Respiratory Rate 20 04/30/20 06:00 Blood Pressure 116/66 04/30/20 06:00 O2 Sat by Pulse Oximetry (%) 96 04/30/20 06:00 Constitutional: Yes: Calm, Mild Distress Cardiovascular: Yes: S1, S2 Respiratory: Yes: Regular, CTA Bilaterally Musculoskeletal: Yes: Other Edema: LLE: 1+, RLE: 1+ Neurological: Yes: Alert, Oriented Psychiatric: Yes: Alert, Oriented Labs: CBC, BMP 04/30/20 06:10 04/30/20 06:10 INR, PTT INR 1.40 (0.83-1.09) H 04/22/20 19:56 Assessment/Plan Acute on Chronic Diastolic Heart Failure Pulmonary HTN Atrial Fibrillation s/p PPM h/o bio AVR h/o MV repair abd tumor diverticulitis plan i am not worried about diverticulitis continue flagyl abd pain better also i am worried about if the tumor causing the symptoms
[2020-04-30] MEDS: GABAPENTIN 300 MG CAPSULE PO SCH (10:35)
[2020-04-30] MEDS: PANTOPRAZOLE 40 MG TABLET PO SCH (10:35)
[2020-04-30] MEDS: LIDOCAINE 5% TOPICAL PATCH TP SCH (10:36)
[2020-04-30] MEDS: metroNIDAZOLE 500 MG TABLET PO SCH (10:36)
[2020-04-30] MEDS: ASPIRIN 325 MG ENTERIC COATED TABLET (FP) PO SCH (10:36)
[2020-04-30] MEDS: FERROUS SO4 325 MG TABLET (FP) PO SCH ×2 (10:36→12:37)
[2020-04-30 11:31] VITALS: TEMP 98.2
--- NOTE | 2020-04-30 11:48 | PN ---
Progress Note (short form) - Note Progress Note: cc: chest pain s: no chest pain, palps, dizziness. breathing better today. Current Medications Generic Name Dose Route Start Last Admin Trade Name Freq PRN Reason Stop Dose Admin Acetaminophen 500 mg 04/24/20 10:46 04/29/20 22:23 Tylenol - PO 500 mg Q6H PRN Administration PAIN 4-6 Aspirin 325 mg 04/23/20 10:00 04/30/20 10:36 Ecotrin - PO 325 mg DAILY [facility] Administration Atorvastatin Calcium 80 mg 04/23/20 22:00 04/29/20 22:22 Lipitor - PO 80 mg HS [facility] Administration Ferrous Sulfate 325 mg 04/23/20 08:00 04/30/20 10:36 Feosol - PO 325 mg TIDCM [facility] Administration Furosemide 40 mg 04/30/20 10:00 04/30/20 10:35 Lasix - PO 40 mg DAILY [facility] Administration Gabapentin 300 mg 04/27/20 11:30 04/30/20 10:35 Neurontin - PO 300 mg BID [facility] Administration Lidocaine 1 patch 04/24/20 12:00 04/30/20 10:36 Lidoderm Patch - TP 1 patch DAILY [facility] Administration Metoprolol Succinate 25 mg 04/30/20 10:00 04/30/20 10:36 Toprol Xl - PO 25 mg DAILY [facility] Administration Metronidazole 500 mg 04/29/20 10:00 04/30/20 10:36 Flagyl - PO 05/04/20 23:59 500 mg BID [facility] Administration Miscellaneous 1 each 04/24/20 22:00 04/29/20 22:22 Lidoderm Patch Removal MC Not Given DAILY@2200 [facility] Morphine Sulfate 2 mg 04/29/20 22:59 04/29/20 23:13 Morphine Sulfate IVPUSH 2 mg Q6H PRN Administration PAIN LEVEL 7-10 Pantoprazole Sodium 40 mg 04/23/20 10:00 04/30/20 10:35 Protonix - PO 40 mg DAILY [facility] Administration Vital Signs Period Temp Pulse Resp BP Sys/Rolle Pulse Ox Last 24 Hr 98 F-99.3 F 71-93 18-20 114-132/51-66 96-97 Constitutional: Yes: No Distress, Calm Eyes: Yes: Conjunctiva Clear Neck: Yes: Supple, Trachea Midline Respiratory: Yes: Regular, On Nasal O2, Rales Gastrointestinal: Yes: Normal Bowel Sounds, Soft Cardiovascular: Yes: Regular Rate and Rhythm JVD: No Heart Sounds: Yes: S1, S2 Murmur: Yes: Systolic Murmur, Diastolic Murmur Edema: no Integumentary: No: Jaundice Neurological: Yes: Alert, Oriented Psychiatric: No: Agitated Assessment/Plan tele: EKG: sinus, LAD, old anterior infarct, old inferior infarct echo 04/2020 nl LV function, mildly dilated RV with mildly reduced functio, doming of anterior MV leaflet suggests past rheumatic disease, mod MS, mod TR, severe pulm HTN, normally functioning bioprosthetic valve 79F h/o ppm, bio AVR, MV repair at [facility] [place], afib not on anticoagulation p/w shortness of breath, chest pain shortness of breath, chest pain, acute diastolic heart failure exacerbation: -trop neg x 2 stable EKG - less likely ACS - echo here with nl LV function with severe pulmonary hypertension, RV dysfunction, moderate MS -improved with iv lasix, had rising BUN. changed to po lasix however has increased congestion on CXR, still requiring O2 and difficulty breathing - received lasix 40 mg IV yesterday, breathing better - cont PO lasix moderate MS, severe pulm HTN, s/p bio AVR: - history of severe , severe MR and moderate MS; s/p bio AVR, MV repair in 2014 at [facility] [place] - has several month history of dyspnea on exertion with moderate MS and severe pulm HTN on echo - has not followed up with cardiology since 2016 - normal bio AVR function - will need repeat echo as outpt when euvolemic to reassess valves afib: - noted on ppm in the past - refused anticoagulation - cont aspirin s/p ppm: - outpatient follow up
--- NOTE | 2020-04-30 14:13 | DS ---
Physical Examination Vital Signs: Vital Signs Temperature 98.2 F 04/30/20 09:00 Pulse Rate 83 04/30/20 09:00 Respiratory Rate 20 04/30/20 09:00 Blood Pressure 114/51 L 04/30/20 09:00 O2 Sat by Pulse Oximetry (%) 97 04/30/20 09:00 Constitutional: Yes: Well Nourished Eyes: Yes: WNL HENT: Yes: WNL Neck: Yes: WNL Cardiovascular: Yes: WNL Respiratory: Yes: SOB on Exertion Gastrointestinal: Yes: WNL ...Rectal Exam: Yes: Deferred, Sphincter Tone Poor Breast(s): Yes: WNL Musculoskeletal: Yes: Back Pain Extremities: Yes: WNL Edema: No Peripheral Pulses WNL: Yes Integumentary: Yes: WNL Neurological: Yes: WNL ...Motor Strength: WNL Psychiatric: Yes: WNL Labs: CBC, BMP 04/30/20 06:10 04/30/20 06:10 Discharge Summary Problems reviewed: Yes Reason For Visit: CHEST PAIN Current Active Problems CHF (congestive heart failure) (Acute) Chest pain (Acute) Pulmonary HTN (Acute) Shortness of breath (Acute) Condition: Guarded - Instructions Diet, Activity, Other Instructions: cont tx as is at home added gabapentin 300 hs tramado; 50 bid for pain o2 tx 2 leters per min for at least 18 hrs a day lasix 40 po daily uped from 20 pacemaker chk ouy pt w dr ailin colin f/u w dr gilbert ?eswal aoot w me 300 tusday made already reduse metoprolol 100 po daily Referrals: Arthur Gilbert MD [Primary Care Provider] - Disposition: HOME - Home Medications Comprehensive Discharge Medication List: Ambulatory Orders Aspirin/Calcium Carbonate [[facility] Women's Aspirin Tablet] 1 each PO 04/23/20 RX: Furosemide 20 mg PO 04/23/20 RX: Metoprolol Succinate 100 mg PO 04/23/20
[2020-04-30 14:22] VITALS: BP 132/66; PULSE 77
== END 2020-04-30 16:22 | disposition home health service (06) | DRG 292 ==
LOC: JER 18:48 → JERBED 20:58 → JER 21:02 → J4S 21:02 → J4W 04-23 14:20
PROVIDERS: ADMIT Family Medicine; ATTEND Family Medicine
DX: I11.0 Hypertensive heart disease with heart failure (principal); I38 Endocarditis, valve unspecified; Z68.41 Body mass index [BMI] 40.0-44.9, adult; I50.33 Acute on chronic diastolic (congestive) heart failure; Z95.0 Presence of cardiac pacemaker; E75.5 Other lipid storage disorders; I27.20 Pulmonary hypertension, unspecified; I48.91 Unspecified atrial fibrillation; R20.0 Anesthesia of skin; N20.0 Calculus of kidney; Z95.2 Presence of prosthetic heart valve; R31.29 Other microscopic hematuria; I34.2 Nonrheumatic mitral (valve) stenosis; I34.0 Nonrheumatic mitral (valve) insufficiency; E66.9 Obesity, unspecified
CPT/HCPCS: 36415; 71045-TC-FY; 74176-TC; 76775-TC; 76856-TC; 80048; 80053; 81003; 82272; 82550; 82728; 83540; 83550; 83615; 83880; 84484; 85025; 85610; 85730; 86304; 93005; 93010; 93306-TC; 94010; 94761; 97116-GP; 97161-GP; 99285-25; J0131; U0003

== ENCOUNTER 2020-07-15 06:36 | Day surgery (SDC) | payer OTHER ==
[2020-07-14 11:29] VITALS: BMI 36.2
[2020-07-15] MEDS ORDERED: ceFAZolin 2 GRAM PREMIX BAG IVPB ONE ×2 (14:34→14:39)
[2020-07-15] MEDS ORDERED: MIDAZOLAM HCL 2 MG/2 ML SINGLE DOSE VIAL ONE (14:37)
[2020-07-15] MEDS ORDERED: ceFAZolin SODIUM 1 GM VIAL ONE (14:38)
[2020-07-15 17:54] VITALS: BP 117/62; PULSE 86; TEMP 98.4
== END 2020-07-15 16:30 | disposition home or self-care (01) ==
LOC: JASU-SURG 06:36
PROVIDERS: ATTEND Urology
PROC: 0TF4XZZ Fragmentation in Left Kidney Pelvis, External Approach (ICD-10-PCS; principal; 2020-07-15 13:15)
DX: N20.0 Calculus of kidney (principal)

== ENCOUNTER 2020-12-08 12:37 | Inpatient (IN) | payer OTHER ==
[2020-12-08] MEDS ORDERED: ONDANSETRON 4 MG/2 ML VIAL ONE (12:40)
[2020-12-08] MEDS ORDERED: SODIUM CHLORIDE 0.9% 500 ML INFUS.BAG IV ONE ×2 (13:02→13:27)
[2020-12-08] MEDS ORDERED: ACETAMINOPHEN 1000 MG/100 ML VIAL (NON FORMULARY) IVPB ONE (13:20)
[2020-12-08] MEDS ORDERED: FAMOTIDINE 20 MG/50 ML IVPB 20 MG/50 ML MG IVPB ONE ×2 (13:21→13:45)
[2020-12-08] MEDS ORDERED: MAG HYDROX/AL HYDROX/SIMETH 30 ML UNIT-DOSE CUP PO ONE (13:21)
[2020-12-08] MEDS ORDERED: LIDOCAINE VISCOUS 2% ORAL/TOP 20 ML UNIT-DOSE CUP MM ONE (13:21)
[2020-12-08] MEDS ORDERED: LIDOCAINE VISCOUS 2% ORAL/TOP 20 ML UNIT-DOSE CUP ONE (13:44)
[2020-12-08] MEDS ORDERED: ACETAMINOPHEN INJECTION 100 ML IVPB ONE (13:45)
[2020-12-08] MEDS ORDERED: MAG HYDROX/AL HYDROX/SIMETH 30 ML UNIT-DOSE CUP ONE (13:45)
[2020-12-08 14:50] LABS: INR 1.12 (0.83-1.09); PROTHROMBIN TIME (PATIENT) 13.7 SEC (9.7-13.0)
[2020-12-08 14:51] LABS: HEMOGLOBIN 7.4 GM/dL (10.7-15.3); MCH 20.5 pg (25.7-33.7); MCHC 30.9 g/dl (32.0-36.0); MEAN CELL VOLUME 66.4 fl (80-96); MEAN PLT VOLUME 11.5 fl (7.5-11.1); PLATELET COUNT 208 K/MM3 (134-434); RBC 3.61 M/mm3 (3.60-5.2); RDW 16.7 % (11.6-15.6); WHITE BLOOD COUNT 10.7 K/mm3 (4.0-10.0)
[2020-12-08 14:55] LABS: CHLORIDE 109 mmol/L (98-107)
[2020-12-08 14:56] LABS: CALCIUM 8.4 mg/dL (8.5-10.1)
[2020-12-08 14:57] LABS: ALBUMIN 3.5 g/dl (3.4-5.0); CO2 9 mmol/L (21-32); GLUCOSE,RANDOM 102 mg/dL (74-106)
[2020-12-08 15:00] LABS: SGOT/AST < 3 U/L (15-37); SGPT/ALT 7 U/L (13-61)
[2020-12-08 15:02] LABS: BILIRUBIN,TOTAL 0.5 mg/dL (0.2-1)
[2020-12-08 15:03] LABS: ALK PHOS 56 U/L (45-117)
[2020-12-08 15:06] LABS: ANION GAP 22 MMOL/L (8-16); BLOOD UREA NITROGEN 170.5 mg/dL (7-18); CREATININE 11.4 mg/dL (0.55-1.3); SODIUM 140 mmol/L (136-145); TOT PROT 6.5 g/dl (6.4-8.2)
[2020-12-08] MEDS ORDERED: PANTOPRAZOLE SODIUM 40 MG VIAL IVPUSH ONE (15:09)
[2020-12-08 15:14] LABS: ANISOCYTOSIS 3+; MACROCYTOSIS 0; OVALOCYTE 1+; PLATELET ESTIMATE NORMAL; TARGET CELLS 1+; TEAR DROP CELLS 1+
[2020-12-08] MEDS ORDERED: PANTOPRAZOLE SODIUM 40 MG VIAL ONE (16:29)
[2020-12-08] MEDS ORDERED: METOCLOPRAMIDE HCL INJECTION 10 MG/2 ML VIAL IVPUSH ONE (16:42)
[2020-12-08] MEDS ORDERED: METOCLOPRAMIDE HCL INJECTION 10 MG/2 ML VIAL ONE (16:46)
[2020-12-08] MEDS ORDERED: SODIUM CHLORIDE 250 ML IV PRN (17:42)
[2020-12-08 18:39] LABS: HEMATOCRIT 24.3 % (32.4-45.2); HEMOGLOBIN 7.2 GM/dL (10.7-15.3); MCHC 29.7 g/dl (32.0-36.0); MEAN CELL VOLUME 67.3 fl (80-96); MEAN PLT VOLUME 12.4 fl (7.5-11.1); PLATELET COUNT 241 K/MM3 (134-434); RBC 3.62 M/mm3 (3.60-5.2); RDW 17.4 % (11.6-15.6); WHITE BLOOD COUNT 12.2 K/mm3 (4.0-10.0)
[2020-12-08 19:00] LABS: CHLORIDE 108 mmol/L (98-107); SODIUM 138 mmol/L (136-145)
[2020-12-08 19:02] LABS: ANION GAP 22 MMOL/L (8-16); CO2 7 mmol/L (21-32)
[2020-12-08 19:03] LABS: ALBUMIN 3.5 g/dl (3.4-5.0); GLUCOSE,RANDOM 117 mg/dL (74-106)
[2020-12-08 19:06] LABS: SGOT/AST 5 U/L (15-37); SGPT/ALT 7 U/L (13-61)
[2020-12-08 19:07] LABS: BILIRUBIN,TOTAL 0.4 mg/dL (0.2-1); TOT PROT 6.6 g/dl (6.4-8.2)
[2020-12-08 19:09] LABS: ALK PHOS 60 U/L (45-117)
[2020-12-08 19:10] LABS: BLOOD UREA NITROGEN 166.2 mg/dL (7-18); CREATININE 11.1 mg/dL (0.55-1.3)
[2020-12-08] MEDS ORDERED: SODIUM BICARBONATE 8.4% - 50 ML ONE ×2 (19:47→20:14)
[2020-12-08] MEDS: SODIUM BICARBONATE 8.4% 50 MEQ/50 ML DISP.SYRIN IVPUSH SCH ×2 (20:03→20:19)
[2020-12-08] MEDS ORDERED: SODIUM BICARBONATE 8.4% 50 MEQ/50 ML DISP.SYRIN IVPUSH ONE ×2 (20:58→22:30)
[2020-12-08] MEDS ORDERED: ASPIRIN 325 MG TABLET PO SCH (21:30)
[2020-12-08] MEDS: VASOPRESSIN 40 UNITS in SODIUM CHLORIDE 98 ML IVPB SCH (21:45)
[2020-12-08 22:06] LABS: ARTERIAL BLOOD GAS BASE EXCESS -17.3 mmol/L (-2-2); ARTERIAL BLOOD GAS PO2 133.1 mmHg (80-100)
[2020-12-08 22:07] LABS: ALLENS TEST POSITIVE
[2020-12-08 22:08] LABS: ARTERIAL BLOOD GAS pH 7.181 (7.350-7.450)
[2020-12-08 22:15] LABS: ANISOCYTOSIS 3+; PLATELET ESTIMATE ADEQUATE; TARGET CELLS 1+; TEAR DROP CELLS 1+
[2020-12-08 22:16] LABS: OVALOCYTE 1+
[2020-12-08 22:57] LABS: LIPASE 830 U/L (73-393)
[2020-12-09] MEDS: HEPARIN NA (PORCINE) 5,000 UNITS/ML 1ML VIAL SQ SCH ×3 (00:48→16:25)
[2020-12-09] MEDS: MUPIROCIN 2% TOPICAL OINTMENT FOR DECOLONIZATION NS SCH ×3 (00:52→21:55)
[2020-12-09] MEDS: CHLORHEXIDINE GLUCONATE 4% CLEANSER FOR DECOLONIZATION TP SCH ×2 (00:53→21:55)
[2020-12-09] MEDS ORDERED: SODIUM BICARBONATE 8.4% 50 MEQ/50 ML DISP.SYRIN IVPUSH ONE (01:30)
[2020-12-09 02:37] LABS: BASO % 0.3 % (0-2.0); EOS % 0.4 % (0-4.5); HEMATOCRIT 23.1 % (32.4-45.2); HEMOGLOBIN 7.4 GM/dL (10.7-15.3); LYMPH % 3.7 % (8-40); MCH 21.5 pg (25.7-33.7); MCHC 31.8 g/dl (32.0-36.0); MEAN CELL VOLUME 67.6 fl (80-96); MEAN PLT VOLUME 12.1 fl (7.5-11.1); MONO % 5.8 % (3.8-10.2); NEUT % 89.8 % (42.8-82.8); PLATELET COUNT 188 K/MM3 (134-434); RBC 3.41 M/mm3 (3.60-5.2); RDW 19.5 % (11.6-15.6); WHITE BLOOD COUNT 11.1 K/mm3 (4.0-10.0)
[2020-12-09 06:24] LABS: ALBUMIN 3.1 g/dl (3.4-5.0); CALCIUM 7.8 mg/dL (8.5-10.1); MAGNESIUM 2.1 mg/dL (1.8-2.4)
[2020-12-09 06:28] LABS: PHOSPHOROUS 6.6 mg/dL (2.5-4.9)
[2020-12-09 06:29] LABS: BILIRUBIN,TOTAL 0.6 mg/dL (0.2-1); TOT PROT 5.8 g/dl (6.4-8.2)
[2020-12-09 06:39] LABS: BLOOD UREA NITROGEN 98.8 mg/dL (7-18); CREATININE 7.4 mg/dL (0.55-1.3)
[2020-12-09 06:42] LABS: ARTERIAL BLD GAS O2 SATURATION 98.4 mmHg (95-98); ARTERIAL BLOOD GAS BASE EXCESS -10.7 mmol/L (-2-2); ARTERIAL BLOOD GAS PO2 125.8 mmHg (80-100); ARTERIAL BLOOD GAS pH 7.328 (7.350-7.450)
[2020-12-09 06:53] LABS: ALLENS TEST POSITIVE
[2020-12-09 07:28] LABS: BASO % 0.4 % (0-2.0); EOS % 0.3 % (0-4.5); HEMATOCRIT 22.6 % (32.4-45.2); HEMOGLOBIN 7.4 GM/dL (10.7-15.3); LYMPH % 4.1 % (8-40); MCH 22.1 pg (25.7-33.7); MCHC 32.8 g/dl (32.0-36.0); MEAN CELL VOLUME 67.3 fl (80-96); MEAN PLT VOLUME 12.3 fl (7.5-11.1); MONO % 8.1 % (3.8-10.2); NEUT % 87.1 % (42.8-82.8); PLATELET COUNT 192 K/MM3 (134-434); RBC 3.35 M/mm3 (3.60-5.2); RDW 19.2 % (11.6-15.6); WHITE BLOOD COUNT 10.9 K/mm3 (4.0-10.0)
[2020-12-09 07:38] LABS: BILIRUBIN,DIRECT 0.1 mg/dL (0.0-0.2)
[2020-12-09] MEDS ORDERED: VASOPRESSIN 20 UNITS/ML VIAL IV ONE (07:46)
[2020-12-09 08:55] LABS: EPI CELLS 24 /uL (0-25.1); HYALINE CASTS 6 /uL (0-3.1); URINE APPEARANCE TURBID; URINE BACTERIA 7565 /uL (0-1359); URINE BILIRUBIN NEGATIVE (NEGATIVE); URINE COLOR YELLOW; URINE GLUCOSE (UA) NEGATIVE (NEGATIVE); URINE KETONE TRACE (NEGATIVE); URINE LEUK ESTERASE 3+ (NEGATIVE); URINE NITRITE NEGATIVE (NEGATIVE); URINE PROTEIN 3+ (NEGATIVE); URINE UROBILINOGEN 0.2 mg/dL (0.2-1.0)
[2020-12-09] MEDS ORDERED: ASPIRIN 81 MG CHEWABLE TABLETS PO SCH (10:00)
[2020-12-09] MEDS: PANTOPRAZOLE SODIUM 40 MG VIAL IVPUSH SCH (10:14)
[2020-12-09] MEDS ORDERED: cefTRIAXone SODIUM 1 GM VIAL ONE (14:43)
[2020-12-09] MEDS ORDERED: DEXTROSE 5%-WATER - 50 ML IVPB ONE (14:43)
[2020-12-09] MEDS: CEFTRIAXONE 1 GM in DEXTROSE 5%-WATER - 50 ML IVPB SCH (14:48)
[2020-12-09] MEDS: VASOPRESSIN 40 UNITS in SODIUM CHLORIDE 98 ML IVPB SCH (21:55)
[2020-12-10 07:28] LABS: BASO % 0.4 % (0-2.0); EOS % 1.2 % (0-4.5); HEMATOCRIT 26.4 % (32.4-45.2); HEMOGLOBIN 8.6 GM/dL (10.7-15.3); LYMPH % 5.1 % (8-40); MCH 22.7 pg (25.7-33.7); MCHC 32.6 g/dl (32.0-36.0); MEAN CELL VOLUME 69.7 fl (80-96); MEAN PLT VOLUME 12.5 fl (7.5-11.1); MONO % 9.6 % (3.8-10.2); NEUT % 83.7 % (42.8-82.8); PLATELET COUNT 163 K/MM3 (134-434); RBC 3.79 M/mm3 (3.60-5.2); RDW 20.7 % (11.6-15.6); WHITE BLOOD COUNT 11.9 K/mm3 (4.0-10.0)
[2020-12-10 07:41] LABS: CHLORIDE 106 mmol/L (98-107); SODIUM 147 mmol/L (136-145)
[2020-12-10 07:43] LABS: ANION GAP 22 MMOL/L (8-16); CALCIUM 7.6 mg/dL (8.5-10.1); CO2 19 mmol/L (21-32); GLUCOSE,RANDOM 93 mg/dL (74-106)
[2020-12-10 07:46] LABS: SGPT/ALT 8 U/L (13-61)
[2020-12-10 07:47] LABS: SGOT/AST 12 U/L (15-37)
[2020-12-10 07:48] LABS: BILIRUBIN,TOTAL 0.5 mg/dL (0.2-1)
[2020-12-10 07:49] LABS: ALK PHOS 54 U/L (45-117)
[2020-12-10 07:50] LABS: BLOOD UREA NITROGEN 106.8 mg/dL (7-18); CREATININE 8.3 mg/dL (0.55-1.3)
[2020-12-10] MEDS ORDERED: SODIUM CHLORIDE 250 ML IV PRN ×3 (07:54→16:30)
[2020-12-10 09:14] LABS: INR 1.14 (0.83-1.09)
[2020-12-10 09:17] LABS: ACTIVATED PTT 27.9 SECONDS (25.2-36.5)
[2020-12-10] MEDS ORDERED: MORPHINE SULFATE 2 MG/ML VIAL IVPUSH ONE (09:30)
[2020-12-10] MEDS ORDERED: cefTRIAXone SODIUM 1 GM VIAL ONE (09:33)
[2020-12-10] MEDS ORDERED: DEXTROSE 5%-WATER - 50 ML IVPB ONE (09:34)
[2020-12-10] MEDS: CEFTRIAXONE 1 GM in DEXTROSE 5%-WATER - 50 ML IVPB SCH (09:35)
[2020-12-10] MEDS: PANTOPRAZOLE SODIUM 40 MG VIAL IVPUSH SCH (09:35)
[2020-12-10] MEDS: MUPIROCIN 2% TOPICAL OINTMENT FOR DECOLONIZATION NS SCH (09:36)
[2020-12-10] MEDS ORDERED: LIDOCAINE 5% TOPICAL PATCH TP SCH (10:00)
[2020-12-10 11:43] LABS: PLATELET ESTIMATE NORMAL
[2020-12-10 14:08] LABS: HEP B CORE AB, TOT Negative (Negative)
[2020-12-10] MEDS ORDERED: ASPIRIN 325 MG TABLET ONE (18:40)
[2020-12-10] MEDS ORDERED: METOPROLOL TARTRATE 5 MG/5 ML VIAL ONE (18:41)
[2020-12-10] MEDS ORDERED: METOPROLOL TARTRATE 5 MG/5 ML VIAL IVPB ONE (18:54)
[2020-12-10] MEDS ORDERED: METOPROLOL TARTRATE 5 MG/5 ML VIAL IVPUSH ONE ×4 (18:55→20:30)
[2020-12-10] MEDS ORDERED: ASPIRIN 325 MG TABLET PO ONE (18:55)
[2020-12-10] MEDS ORDERED: SODIUM CHLORIDE 1,000 ML IV STA (19:06)
[2020-12-10] MEDS ORDERED: AMIODARONE IN DEXTROSE,ISO-OSM 150 MG/100 ML BAG IVPB ONE (19:41)
[2020-12-10] MEDS ORDERED: DILTIAZEM INJECTION 125 MG in SODIUM CHLORIDE 100 ML IVPB SCH (19:45)
[2020-12-10] MEDS ORDERED: AMIODARONE IN DEXTROSE,ISO-OSM 360 MG/200 ML BAG IVPB ONE (20:00)
[2020-12-10] MEDS ORDERED: SODIUM CHLORIDE 1,000 ML IV ONE (20:06)
[2020-12-10 20:52] LABS: HEMATOCRIT 25.7 % (32.4-45.2); MCH 22.1 pg (25.7-33.7); MCHC 31.2 g/dl (32.0-36.0); MEAN CELL VOLUME 70.7 fl (80-96); MEAN PLT VOLUME 12.4 fl (7.5-11.1); PLATELET COUNT 141 K/MM3 (134-434); RBC 3.63 M/mm3 (3.60-5.2); RDW 20.7 % (11.6-15.6)
[2020-12-10 21:23] LABS: ALBUMIN 2.6 g/dl (3.4-5.0); CALCIUM 7.3 mg/dL (8.5-10.1)
[2020-12-10 21:24] LABS: MAGNESIUM 1.7 mg/dL (1.8-2.4)
[2020-12-10 21:27] LABS: CREATININE 5.2 mg/dL (0.55-1.3); PHOSPHOROUS 4.3 mg/dL (2.5-4.9)
[2020-12-10 21:28] LABS: BILIRUBIN,TOTAL 0.6 mg/dL (0.2-1); TOT PROT 5.2 g/dl (6.4-8.2)
[2020-12-10 21:33] LABS: BLOOD UREA NITROGEN 56.4 mg/dL (7-18)
[2020-12-10] MEDS ORDERED: CHLORHEXIDINE GLUCONATE 4% CLEANSER FOR DECOLONIZATION TP SCH (22:00)
[2020-12-10] MEDS ORDERED: LIDOCAINE PATCH REMOVAL MC SCH ×2 (22:00)
[2020-12-10] MEDS ORDERED: MAGNESIUM SULF 50% (8.12 MEQ/2 ML-1 GM VIAL) IM ONE (23:45)
[2020-12-11] MEDS ORDERED: AMIODARONE IN DEXTROSE,ISO-OSM 360 MG/200 ML BAG IVPB SCH (02:00)
[2020-12-11 07:13] LABS: BASO % 0.6 % (0-2.0); EOS % 1.2 % (0-4.5); HEMATOCRIT 26.1 % (32.4-45.2); HEMOGLOBIN 8.4 GM/dL (10.7-15.3); LYMPH % 6.6 % (8-40); MCH 22.8 pg (25.7-33.7); MCHC 32.2 g/dl (32.0-36.0); MEAN CELL VOLUME 70.8 fl (80-96); MEAN PLT VOLUME 12.4 fl (7.5-11.1); MONO % 10.6 % (3.8-10.2); PLATELET COUNT 160 K/MM3 (134-434); RBC 3.68 M/mm3 (3.60-5.2); RDW 21.1 % (11.6-15.6); WHITE BLOOD COUNT 10.4 K/mm3 (4.0-10.0)
[2020-12-11 07:27] LABS: CHLORIDE 110 mmol/L (98-107); SODIUM 143 mmol/L (136-145)
[2020-12-11 07:29] LABS: CALCIUM 7.6 mg/dL (8.5-10.1)
[2020-12-11 07:30] LABS: ALBUMIN 2.9 g/dl (3.4-5.0); GLUCOSE,RANDOM 121 mg/dL (74-106)
[2020-12-11 07:32] LABS: SGPT/ALT 13 U/L (13-61)
[2020-12-11 07:33] LABS: CREATININE 5.5 mg/dL (0.55-1.3); SGOT/AST 15 U/L (15-37)
[2020-12-11 07:34] LABS: BILIRUBIN,TOTAL 0.3 mg/dL (0.2-1); TOT PROT 5.8 g/dl (6.4-8.2)
[2020-12-11 07:35] LABS: ALK PHOS 62 U/L (45-117)
[2020-12-11 07:36] LABS: ANION GAP 10 MMOL/L (8-16); CO2 23 mmol/L (21-32)
[2020-12-11] MEDS ORDERED: SODIUM CHLORIDE 250 ML IV PRN ×2 (07:38)
[2020-12-11] MEDS ORDERED: cefTRIAXone SODIUM 1 GM VIAL ONE (08:57)
[2020-12-11] MEDS ORDERED: DEXTROSE 5%-WATER - 50 ML IVPB ONE (08:58)
[2020-12-11] MEDS ORDERED: POLYETHYLENE GLYCOL 3350 119 GM BTL PO SCH (10:00)
[2020-12-11] MEDS ORDERED: PANTOPRAZOLE SODIUM 40 MG VIAL IVPUSH SCH ×2 (10:00)
[2020-12-11] MEDS ORDERED: CEFTRIAXONE 1 GM in DEXTROSE 5%-WATER - 50 ML IVPB SCH (10:00)
[2020-12-11] MEDS ORDERED: LIDOCAINE 5% TOPICAL PATCH TP SCH (10:00)
[2020-12-11] MEDS: PANTOPRAZOLE SODIUM 40 MG VIAL IVPUSH SCH (10:13)
[2020-12-11] MEDS: CEFTRIAXONE 1 GM in DEXTROSE 5%-WATER - 50 ML IVPB SCH (10:13)
[2020-12-11] MEDS: POLYETHYLENE GLYCOL 3350 119 GM BTL PO SCH (10:14)
[2020-12-11] MEDS: LIDOCAINE 5% TOPICAL PATCH TP SCH (10:14)
[2020-12-11 11:01] LABS: PLATELET ESTIMATE NORMAL
[2020-12-11 15:07] LABS: ANTIGLOMERULAR BASEMENT MEN.AB 3 units (0-20)
[2020-12-11] MEDS ORDERED: POTASSIUM CHLORIDE TABS 20 MEQ TABLET.ER (FP) PO ONE (15:58)
[2020-12-11 18:11] LABS: ATYPICAL pANCA <1:20 titer (Neg:<1:20); C-ANCA <1:20 titer (Neg:<1:20)
[2020-12-11] MEDS: LIDOCAINE PATCH REMOVAL MC SCH (21:54)
[2020-12-12 07:27] LABS: CALCIUM 8.3 mg/dL (8.5-10.1)
[2020-12-12 07:28] LABS: ALBUMIN 2.8 g/dl (3.4-5.0); BLOOD UREA NITROGEN 64.5 mg/dL (7-18); MAGNESIUM 2.1 mg/dL (1.8-2.4)
[2020-12-12 07:31] LABS: CREATININE 5.8 mg/dL (0.55-1.3)
[2020-12-12 07:32] LABS: BILIRUBIN,TOTAL 0.4 mg/dL (0.2-1)
[2020-12-12 07:33] LABS: TOT PROT 5.6 g/dl (6.4-8.2)
[2020-12-12 07:43] LABS: HEMATOCRIT 24.8 % (32.4-45.2); HEMOGLOBIN 7.8 GM/dL (10.7-15.3); MCH 22.3 pg (25.7-33.7); MCHC 31.5 g/dl (32.0-36.0); MEAN CELL VOLUME 70.7 fl (80-96); MEAN PLT VOLUME 12.4 fl (7.5-11.1); PLATELET COUNT 154 K/MM3 (134-434); RDW 21.7 % (11.6-15.6); WHITE BLOOD COUNT 9.6 K/mm3 (4.0-10.0)
[2020-12-12] MEDS ORDERED: DEXTROSE 5%-WATER - 50 ML IVPB ONE (08:47)
[2020-12-12] MEDS ORDERED: cefTRIAXone SODIUM 1 GM VIAL ONE (08:47)
[2020-12-12] MEDS: POLYETHYLENE GLYCOL 3350 119 GM BTL PO SCH (09:53)
[2020-12-12] MEDS: LIDOCAINE 5% TOPICAL PATCH TP SCH (09:53)
[2020-12-12] MEDS: CEFTRIAXONE 1 GM in DEXTROSE 5%-WATER - 50 ML IVPB SCH (09:53)
[2020-12-12] MEDS: PANTOPRAZOLE SODIUM 40 MG VIAL IVPUSH SCH (09:53)
[2020-12-12] MEDS ORDERED: FUROSEMIDE 40 MG/4 ML INJECTABLE VIAL IVPUSH ONE (15:00)
[2020-12-12] MEDS ORDERED: POTASSIUM CHLORIDE TABS 20 MEQ TABLET.ER (FP) PO ONE (15:00)
[2020-12-12] MEDS: LIDOCAINE PATCH REMOVAL MC SCH (21:22)
[2020-12-13 08:28] LABS: HEMATOCRIT 25.5 % (32.4-45.2); HEMOGLOBIN 8.2 GM/dL (10.7-15.3); MCH 22.6 pg (25.7-33.7); MEAN CELL VOLUME 70.7 fl (80-96); MEAN PLT VOLUME 11.8 fl (7.5-11.1); PLATELET COUNT 163 K/MM3 (134-434); RBC 3.61 M/mm3 (3.60-5.2); RDW 21.7 % (11.6-15.6); WHITE BLOOD COUNT 9.6 K/mm3 (4.0-10.0)
[2020-12-13] MEDS ORDERED: cefTRIAXone SODIUM 1 GM VIAL ONE (08:35)
[2020-12-13] MEDS ORDERED: DEXTROSE 5%-WATER - 50 ML IVPB ONE (08:35)
[2020-12-13 08:48] LABS: CALCIUM 8.7 mg/dL (8.5-10.1)
[2020-12-13 08:49] LABS: ALBUMIN 2.9 g/dl (3.4-5.0); BLOOD UREA NITROGEN 69.8 mg/dL (7-18)
[2020-12-13 08:52] LABS: CREATININE 5.9 mg/dL (0.55-1.3)
[2020-12-13 08:53] LABS: BILIRUBIN,TOTAL 0.3 mg/dL (0.2-1); TOT PROT 5.6 g/dl (6.4-8.2)
[2020-12-13] MEDS: metoPROLOL SUCCINATE 25 MG TAB.SR.24H (FP) PO SCH ×2 (09:33→21:16)
[2020-12-13] MEDS: PANTOPRAZOLE SODIUM 40 MG VIAL IVPUSH SCH (09:34)
[2020-12-13] MEDS: CEFTRIAXONE 1 GM in DEXTROSE 5%-WATER - 50 ML IVPB SCH (09:34)
[2020-12-13] MEDS: POLYETHYLENE GLYCOL 3350 119 GM BTL PO SCH (09:35)
[2020-12-13] MEDS: LIDOCAINE 5% TOPICAL PATCH TP SCH (09:35)
[2020-12-13 10:03] LABS: ANISOCYTOSIS 2+; MACROCYTOSIS 0; OVALOCYTE 2+; PLATELET ESTIMATE NORMAL; TARGET CELLS 2+
[2020-12-13] MEDS ORDERED: SODIUM CHLORIDE 250 ML IV PRN (11:53)
[2020-12-13] MEDS: ALBUMIN HUMAN 25% 12.5 GM/50 ML VIAL IVPB SCH ×4 (16:13→16:16)
[2020-12-13] MEDS ORDERED: ZOLPIDEM TARTRATE 5 MG TABLET PO PRN (23:57)
[2020-12-14 07:44] LABS: CALCIUM 8.4 mg/dL (8.5-10.1)
[2020-12-14 07:45] LABS: ALBUMIN 3.1 g/dl (3.4-5.0)
[2020-12-14 07:46] LABS: BASO % 0.8 % (0-2.0); HEMATOCRIT 24.9 % (32.4-45.2); HEMOGLOBIN 7.8 GM/dL (10.7-15.3); MCH 22.4 pg (25.7-33.7); MCHC 31.3 g/dl (32.0-36.0); MEAN CELL VOLUME 71.7 fl (80-96); MEAN PLT VOLUME 12.5 fl (7.5-11.1); MONO % 11.4 % (3.8-10.2); NEUT % 76.8 % (42.8-82.8); PLATELET COUNT 152 K/MM3 (134-434); RBC 3.48 M/mm3 (3.60-5.2); RDW 21.6 % (11.6-15.6); WHITE BLOOD COUNT 8.7 K/mm3 (4.0-10.0)
[2020-12-14 07:48] LABS: CREATININE 3.9 mg/dL (0.55-1.3)
[2020-12-14 07:49] LABS: BILIRUBIN,TOTAL 0.5 mg/dL (0.2-1); TOT PROT 5.6 g/dl (6.4-8.2)
[2020-12-14 07:56] LABS: BLOOD UREA NITROGEN 39.7 mg/dL (7-18)
[2020-12-14] MEDS ORDERED: DEXTROSE 5%-WATER - 50 ML IVPB ONE (08:41)
[2020-12-14] MEDS ORDERED: cefTRIAXone SODIUM 1 GM VIAL ONE (08:41)
[2020-12-14] MEDS: CEFTRIAXONE 1 GM in DEXTROSE 5%-WATER - 50 ML IVPB SCH (09:08)
[2020-12-14] MEDS: metoPROLOL SUCCINATE 25 MG TAB.SR.24H (FP) PO SCH ×2 (09:08→21:09)
[2020-12-14] MEDS: PANTOPRAZOLE SODIUM 40 MG VIAL IVPUSH SCH (09:08)
[2020-12-14] MEDS: POLYETHYLENE GLYCOL 3350 119 GM BTL PO SCH (09:09)
[2020-12-14 12:56] LABS: EPI CELLS >36 /uL (0-25.1); HYALINE CASTS 10 /uL (0-3.1); URINE APPEARANCE TURBID; URINE BACTERIA 4 /uL (0-1359); URINE BILIRUBIN 1+ (NEGATIVE); URINE COLOR RED; URINE GLUCOSE (UA) NEGATIVE (NEGATIVE); URINE KETONE NEGATIVE (NEGATIVE); URINE LEUK ESTERASE 3+ (NEGATIVE); URINE NITRITE NEGATIVE (NEGATIVE); URINE PROTEIN 3+ (NEGATIVE); URINE UROBILINOGEN 0.2 mg/dL (0.2-1.0); URINE WBC 3489 /uL (0-25.8)
[2020-12-15 06:59] LABS: BASO % 0.6 % (0-2.0); EOS % 2.7 % (0-4.5); HEMOGLOBIN 7.6 GM/dL (10.7-15.3); MCH 22.7 pg (25.7-33.7); MCHC 31.5 g/dl (32.0-36.0); MEAN PLT VOLUME 11.8 fl (7.5-11.1); NEUT % 70.7 % (42.8-82.8); PLATELET COUNT 151 K/MM3 (134-434); RBC 3.34 M/mm3 (3.60-5.2)
[2020-12-15 07:39] LABS: CALCIUM 8.4 mg/dL (8.5-10.1)
[2020-12-15 07:40] LABS: ALBUMIN 2.9 g/dl (3.4-5.0); MAGNESIUM 1.9 mg/dL (1.8-2.4)
[2020-12-15 07:43] LABS: BILIRUBIN,TOTAL 0.4 mg/dL (0.2-1); CREATININE 4.5 mg/dL (0.55-1.3); TOT PROT 5.4 g/dl (6.4-8.2)
[2020-12-15] MEDS ORDERED: cefTRIAXone SODIUM 1 GM VIAL ONE (08:53)
[2020-12-15] MEDS ORDERED: DEXTROSE 5%-WATER - 50 ML IVPB ONE (08:53)
[2020-12-15] MEDS: metoPROLOL SUCCINATE 25 MG TAB.SR.24H (FP) PO SCH ×2 (09:12→21:19)
[2020-12-15] MEDS: PANTOPRAZOLE SODIUM 40 MG VIAL IVPUSH SCH (09:12)
[2020-12-15] MEDS: CEFTRIAXONE 1 GM in DEXTROSE 5%-WATER - 50 ML IVPB SCH (09:12)
[2020-12-15] MEDS: POLYETHYLENE GLYCOL 3350 119 GM BTL PO SCH (09:12)
[2020-12-16] MEDS ORDERED: cefTRIAXone SODIUM 1 GM VIAL ONE (08:29)
[2020-12-16] MEDS ORDERED: DEXTROSE 5%-WATER - 50 ML IVPB ONE (08:29)
[2020-12-16] MEDS: CEFTRIAXONE 1 GM in DEXTROSE 5%-WATER - 50 ML IVPB SCH (09:02)
[2020-12-16] MEDS: metoPROLOL SUCCINATE 25 MG TAB.SR.24H (FP) PO SCH ×2 (09:02→21:32)
[2020-12-16] MEDS: POLYETHYLENE GLYCOL 3350 119 GM BTL PO SCH (09:02)
[2020-12-16 11:55] LABS: BASO % 0.7 % (0-2.0); EOS % 2.3 % (0-4.5); HEMOGLOBIN 8.6 GM/dL (10.7-15.3); LYMPH % 7.2 % (8-40); MCH 22.6 pg (25.7-33.7); MCHC 31.7 g/dl (32.0-36.0); MEAN CELL VOLUME 71.3 fl (80-96); MONO % 9.9 % (3.8-10.2); NEUT % 79.9 % (42.8-82.8); RBC 3.78 M/mm3 (3.60-5.2); WHITE BLOOD COUNT 10.9 K/mm3 (4.0-10.0)
[2020-12-16 11:56] LABS: MEAN PLT VOLUME 12.1 fl (7.5-11.1); PLATELET COUNT 186 K/MM3 (134-434)
[2020-12-16 12:12] LABS: ALBUMIN 3.1 g/dl (3.4-5.0); CALCIUM 8.4 mg/dL (8.5-10.1)
[2020-12-16 12:14] LABS: BLOOD UREA NITROGEN 46.8 mg/dL (7-18)
[2020-12-16 12:17] LABS: CREATININE 4.8 mg/dL (0.55-1.3)
[2020-12-16 12:18] LABS: BILIRUBIN,TOTAL 0.4 mg/dL (0.2-1); TOT PROT 5.9 g/dl (6.4-8.2)
[2020-12-16 12:41] LABS: ANISOCYTOSIS 2+; MACROCYTOSIS 1+; PLATELET ESTIMATE NORMAL; TARGET CELLS 1+; TEAR DROP CELLS 1+
[2020-12-16 22:17] VITALS: BMI 32.9
[2020-12-17 07:34] LABS: CALCIUM 8.5 mg/dL (8.5-10.1)
[2020-12-17 07:35] LABS: BLOOD UREA NITROGEN 52.6 mg/dL (7-18)
[2020-12-17 07:36] LABS: BILIRUBIN,TOTAL 0.4 mg/dL (0.2-1)
[2020-12-17 07:37] LABS: TOT PROT 5.4 g/dl (6.4-8.2)
[2020-12-17 07:39] LABS: CREATININE 4.8 mg/dL (0.55-1.3); PHOSPHOROUS 4.3 mg/dL (2.5-4.9)
[2020-12-17] MEDS ORDERED: DEXTROSE 5%-WATER - 50 ML IVPB ONE (08:19)
[2020-12-17] MEDS ORDERED: cefTRIAXone SODIUM 1 GM VIAL ONE (08:19)
[2020-12-17] MEDS: metoPROLOL SUCCINATE 25 MG TAB.SR.24H (FP) PO SCH ×2 (09:02→21:09)
[2020-12-17] MEDS: CEFTRIAXONE 1 GM in DEXTROSE 5%-WATER - 50 ML IVPB SCH (09:02)
[2020-12-17] MEDS: POLYETHYLENE GLYCOL 3350 119 GM BTL PO SCH (09:03)
[2020-12-18 07:55] LABS: BLOOD UREA NITROGEN 55.2 mg/dL (7-18); CALCIUM 8.3 mg/dL (8.5-10.1)
[2020-12-18 07:56] LABS: ALBUMIN 2.7 g/dl (3.4-5.0)
[2020-12-18 07:59] LABS: CREATININE 5.2 mg/dL (0.55-1.3)
[2020-12-18 08:00] LABS: BILIRUBIN,TOTAL 0.4 mg/dL (0.2-1); TOT PROT 5.1 g/dl (6.4-8.2)
[2020-12-18] MEDS ORDERED: cefTRIAXone SODIUM 1 GM VIAL ONE (09:01)
[2020-12-18] MEDS ORDERED: DEXTROSE 5%-WATER - 50 ML IVPB ONE (09:01)
[2020-12-18] MEDS: POLYETHYLENE GLYCOL 3350 119 GM BTL PO SCH (09:08)
[2020-12-18] MEDS: metoPROLOL SUCCINATE 25 MG TAB.SR.24H (FP) PO SCH ×2 (09:08→21:07)
[2020-12-18] MEDS ORDERED: FUROSEMIDE 40 MG/4 ML INJECTABLE VIAL IVPUSH ONE (12:26)
[2020-12-19 07:30] LABS: EOS % 1.6 % (0-4.5); HEMATOCRIT 24.2 % (32.4-45.2); HEMOGLOBIN 7.5 GM/dL (10.7-15.3); LYMPH % 10.2 % (8-40); MCH 22.4 pg (25.7-33.7); MEAN CELL VOLUME 72.3 fl (80-96); MEAN PLT VOLUME 12.4 fl (7.5-11.1); MONO % 13.7 % (3.8-10.2); NEUT % 73.5 % (42.8-82.8); PLATELET COUNT 177 K/MM3 (134-434); RBC 3.35 M/mm3 (3.60-5.2); RDW 21.8 % (11.6-15.6); WHITE BLOOD COUNT 7.9 K/mm3 (4.0-10.0)
[2020-12-19 07:45] LABS: ALBUMIN 2.9 g/dl (3.4-5.0); BLOOD UREA NITROGEN 58.2 mg/dL (7-18); CALCIUM 8.6 mg/dL (8.5-10.1)
[2020-12-19 07:48] LABS: CREATININE 5.7 mg/dL (0.55-1.3)
[2020-12-19 07:50] LABS: BILIRUBIN,TOTAL 0.4 mg/dL (0.2-1); TOT PROT 5.4 g/dl (6.4-8.2)
[2020-12-19] MEDS: metoPROLOL SUCCINATE 25 MG TAB.SR.24H (FP) PO SCH ×2 (09:26→22:12)
[2020-12-19] MEDS: POLYETHYLENE GLYCOL 3350 119 GM BTL PO SCH (09:26)
[2020-12-19] MEDS: ASPIRIN COATED 81 MG TABLET.EC PO SCH (09:26)
[2020-12-19] MEDS ORDERED: FUROSEMIDE 40 MG/4 ML INJECTABLE VIAL IVPUSH ONE (14:45)
[2020-12-19] MEDS: CALCIUM ACETATE 667 MG CAPSULE (FP) PO SCH (17:06)
[2020-12-20 08:22] LABS: CALCIUM 8.7 mg/dL (8.5-10.1)
[2020-12-20 08:24] LABS: ALBUMIN 3.1 g/dl (3.4-5.0)
[2020-12-20 08:25] LABS: BLOOD UREA NITROGEN 67.8 mg/dL (7-18); CREATININE 6.2 mg/dL (0.55-1.3)
[2020-12-20 08:27] LABS: TOT PROT 5.7 g/dl (6.4-8.2)
[2020-12-20 08:28] LABS: BILIRUBIN,TOTAL 0.5 mg/dL (0.2-1)
[2020-12-20] MEDS: CALCIUM ACETATE 667 MG CAPSULE (FP) PO SCH ×3 (10:00→16:49)
[2020-12-20] MEDS: POLYETHYLENE GLYCOL 3350 119 GM BTL PO SCH (10:00)
[2020-12-20] MEDS: metoPROLOL SUCCINATE 25 MG TAB.SR.24H (FP) PO SCH ×2 (10:00→21:21)
[2020-12-20] MEDS: ASPIRIN COATED 81 MG TABLET.EC PO SCH (10:00)
[2020-12-20] MEDS ORDERED: FUROSEMIDE 40 MG/4 ML INJECTABLE VIAL IVPB ONE (11:01)
[2020-12-21 07:17] LABS: BASO % 0.9 % (0-2.0); EOS % 1.1 % (0-4.5); HEMATOCRIT 23.3 % (32.4-45.2); HEMOGLOBIN 7.2 GM/dL (10.7-15.3); LYMPH % 9.4 % (8-40); MCH 22.3 pg (25.7-33.7); MEAN CELL VOLUME 71.8 fl (80-96); MEAN PLT VOLUME 12.9 fl (7.5-11.1); MONO % 10.8 % (3.8-10.2); NEUT % 77.8 % (42.8-82.8); PLATELET COUNT 164 K/MM3 (134-434); RBC 3.24 M/mm3 (3.60-5.2); RDW 21.4 % (11.6-15.6); WHITE BLOOD COUNT 7.5 K/mm3 (4.0-10.0)
[2020-12-21 07:31] LABS: ALBUMIN 2.7 g/dl (3.4-5.0); CALCIUM 8.5 mg/dL (8.5-10.1)
[2020-12-21 07:32] LABS: BLOOD UREA NITROGEN 65.5 mg/dL (7-18)
[2020-12-21 07:35] LABS: CREATININE 6.2 mg/dL (0.55-1.3); PHOSPHOROUS 5.4 mg/dL (2.5-4.9)
[2020-12-21 07:36] LABS: BILIRUBIN,TOTAL 0.4 mg/dL (0.2-1); TOT PROT 5.3 g/dl (6.4-8.2)
[2020-12-21] MEDS ORDERED: FUROSEMIDE 100 MG/10 ML INJECTABLE VIAL IVPB ONE (10:00)
[2020-12-21] MEDS: CALCIUM ACETATE 667 MG CAPSULE (FP) PO SCH ×3 (10:08→18:11)
[2020-12-21] MEDS: metoPROLOL SUCCINATE 25 MG TAB.SR.24H (FP) PO SCH ×2 (10:08→21:02)
[2020-12-21] MEDS: ASPIRIN COATED 81 MG TABLET.EC PO SCH (10:08)
[2020-12-21] MEDS: POLYETHYLENE GLYCOL 3350 119 GM BTL PO SCH (10:08)
[2020-12-21 10:56] LABS: ANISOCYTOSIS 1+; PLATELET ESTIMATE NORMAL
[2020-12-22 07:46] LABS: CALCIUM 8.2 mg/dL (8.5-10.1)
[2020-12-22 07:47] LABS: ALBUMIN 2.8 g/dl (3.4-5.0); BLOOD UREA NITROGEN 71.4 mg/dL (7-18)
[2020-12-22 07:50] LABS: CREATININE 6.5 mg/dL (0.55-1.3)
[2020-12-22 07:52] LABS: BILIRUBIN,TOTAL 0.5 mg/dL (0.2-1); TOT PROT 5.2 g/dl (6.4-8.2)
[2020-12-22 08:35] LABS: BASO % 0.8 % (0-2.0); EOS % 0.8 % (0-4.5); HEMATOCRIT 22.9 % (32.4-45.2); HEMOGLOBIN 7.1 GM/dL (10.7-15.3); LYMPH % 5.3 % (8-40); MCH 22.2 pg (25.7-33.7); MCHC 31.1 g/dl (32.0-36.0); MEAN CELL VOLUME 71.4 fl (80-96); MEAN PLT VOLUME 13.2 fl (7.5-11.1); MONO % 10.3 % (3.8-10.2); NEUT % 82.8 % (42.8-82.8); PLATELET COUNT 159 K/MM3 (134-434); RBC 3.21 M/mm3 (3.60-5.2); RDW 21.7 % (11.6-15.6); WHITE BLOOD COUNT 7.6 K/mm3 (4.0-10.0)
[2020-12-22] MEDS: CALCIUM ACETATE 667 MG CAPSULE (FP) PO SCH ×3 (08:45→18:15)
[2020-12-22] MEDS: ASPIRIN COATED 81 MG TABLET.EC PO SCH (09:25)
[2020-12-22] MEDS: metoPROLOL SUCCINATE 25 MG TAB.SR.24H (FP) PO SCH ×2 (09:25→21:19)
[2020-12-22] MEDS: POLYETHYLENE GLYCOL 3350 119 GM BTL PO SCH (09:25)
[2020-12-22 10:11] LABS: PLATELET ESTIMATE DECREASED
[2020-12-22] MEDS ORDERED: MIDAZOLAM HCL 2 MG/2 ML SINGLE DOSE VIAL ONE (15:10)
[2020-12-22] MEDS ORDERED: ceFAZolin SODIUM 1 GM VIAL ONE (15:10)
[2020-12-22] MEDS ORDERED: PROPOFOL 20 ML ONE (15:11)
[2020-12-22] MEDS ORDERED: ceFAZolin SODIUM 1 GM VIAL IVPB ONE (15:20)
[2020-12-22] MEDS ORDERED: SODIUM CHLORIDE 250 ML IV PRN ×2 (15:32→16:56)
[2020-12-22] MEDS ORDERED: ONDANSETRON 4 MG/2 ML VIAL IVPUSH PRN (17:05)
[2020-12-22] MEDS ORDERED: LACTATED RINGERS SOLUTION 1,000 ML IV SCH (17:15)
[2020-12-23] MEDS: CALCIUM ACETATE 667 MG CAPSULE (FP) PO SCH ×3 (07:45→17:32)
[2020-12-23] MEDS: POLYETHYLENE GLYCOL 3350 119 GM BTL PO SCH (11:39)
[2020-12-23] MEDS: ASPIRIN COATED 81 MG TABLET.EC PO SCH (11:39)
[2020-12-23] MEDS: metoPROLOL SUCCINATE 25 MG TAB.SR.24H (FP) PO SCH ×2 (11:39→21:17)
[2020-12-24 07:46] LABS: BASO % 1.7 % (0-2.0); EOS % 1.6 % (0-4.5); HEMATOCRIT 22.2 % (32.4-45.2); LYMPH % 9.6 % (8-40); MCH 22.2 pg (25.7-33.7); MCHC 30.9 g/dl (32.0-36.0); MEAN CELL VOLUME 71.8 fl (80-96); MEAN PLT VOLUME 11.5 fl (7.5-11.1); MONO % 14.6 % (3.8-10.2); NEUT % 72.5 % (42.8-82.8); PLATELET COUNT 139 K/MM3 (134-434); RBC 3.09 M/mm3 (3.60-5.2); RDW 20.8 % (11.6-15.6); WHITE BLOOD COUNT 6.2 K/mm3 (4.0-10.0)
[2020-12-24 07:52] LABS: HEMOGLOBIN 6.9 GM/dL (10.7-15.3)
[2020-12-24 08:16] LABS: CALCIUM 8.2 mg/dL (8.5-10.1)
[2020-12-24 08:17] LABS: ALBUMIN 2.8 g/dl (3.4-5.0)
[2020-12-24 08:20] LABS: CREATININE 4.6 mg/dL (0.55-1.3)
[2020-12-24 08:22] LABS: BILIRUBIN,TOTAL 0.4 mg/dL (0.2-1)
[2020-12-24 08:23] LABS: TOT PROT 5.3 g/dl (6.4-8.2)
[2020-12-24 08:39] LABS: BLOOD UREA NITROGEN 43.7 mg/dL (7-18)
[2020-12-24] MEDS: CALCIUM ACETATE 667 MG CAPSULE (FP) PO SCH ×3 (09:28→16:48)
[2020-12-24] MEDS: ASPIRIN COATED 81 MG TABLET.EC PO SCH (09:28)
[2020-12-24] MEDS: POLYETHYLENE GLYCOL 3350 119 GM BTL PO SCH (09:29)
[2020-12-24 10:53] LABS: ANISOCYTOSIS 1+; MACROCYTOSIS 0; PLATELET ESTIMATE DECREASED; TARGET CELLS 1+
[2020-12-24] MEDS: metoPROLOL SUCCINATE 25 MG TAB.SR.24H (FP) PO SCH ×2 (11:17→21:07)
[2020-12-24] MEDS ORDERED: FUROSEMIDE 40 MG/4 ML INJECTABLE VIAL IVPUSH SCH (11:53)
[2020-12-24] MEDS ORDERED: EPOETIN ALFA-EPBX 10,000 UNIT/ML VIAL SQ ONE (12:00)
[2020-12-25 07:16] LABS: BASO % 1.2 % (0-2.0); EOS % 0.8 % (0-4.5); HEMATOCRIT 28.6 % (32.4-45.2); LYMPH % 5.2 % (8-40); MCH 22.8 pg (25.7-33.7); MCHC 31.3 g/dl (32.0-36.0); MEAN CELL VOLUME 72.7 fl (80-96); MEAN PLT VOLUME 13.3 fl (7.5-11.1); MONO % 8.9 % (3.8-10.2); NEUT % 83.9 % (42.8-82.8); RBC 3.93 M/mm3 (3.60-5.2); RDW 20.7 % (11.6-15.6)
[2020-12-25 07:38] LABS: CALCIUM 8.9 mg/dL (8.5-10.1)
[2020-12-25 07:39] LABS: BLOOD UREA NITROGEN 45.6 mg/dL (7-18)
[2020-12-25] MEDS ORDERED: SODIUM CHLORIDE 250 ML IV PRN (07:58)
[2020-12-25] MEDS ORDERED: EPOETIN ALFA-EPBX 10,000 UNIT/ML VIAL SQ ONE (09:00)
[2020-12-25 09:03] LABS: PLATELET COUNT 192 K/MM3 (134-434)
[2020-12-25] MEDS: ASPIRIN COATED 81 MG TABLET.EC PO SCH (10:24)
[2020-12-25] MEDS: metoPROLOL SUCCINATE 25 MG TAB.SR.24H (FP) PO SCH ×2 (10:24→23:06)
[2020-12-25] MEDS: POLYETHYLENE GLYCOL 3350 119 GM BTL PO SCH (10:25)
[2020-12-25] MEDS: CALCIUM ACETATE 667 MG CAPSULE (FP) PO SCH ×3 (10:25→17:11)
[2020-12-26 07:41] LABS: CALCIUM 8.6 mg/dL (8.5-10.1)
[2020-12-26 07:42] LABS: BLOOD UREA NITROGEN 29.7 mg/dL (7-18)
[2020-12-26 07:45] LABS: CREATININE 3.8 mg/dL (0.55-1.3)
[2020-12-26 08:03] LABS: BASO % 1.2 % (0-2.0); EOS % 1.2 % (0-4.5); HEMATOCRIT 28.2 % (32.4-45.2); HEMOGLOBIN 8.9 GM/dL (10.7-15.3); LYMPH % 5.9 % (8-40); MCH 22.9 pg (25.7-33.7); MCHC 31.6 g/dl (32.0-36.0); MEAN CELL VOLUME 72.5 fl (80-96); MEAN PLT VOLUME 12.7 fl (7.5-11.1); MONO % 11.1 % (3.8-10.2); NEUT % 80.6 % (42.8-82.8); PLATELET COUNT 159 K/MM3 (134-434); RBC 3.89 M/mm3 (3.60-5.2); WHITE BLOOD COUNT 9.8 K/mm3 (4.0-10.0)
[2020-12-26] MEDS: ASPIRIN COATED 81 MG TABLET.EC PO SCH (09:46)
[2020-12-26] MEDS: POLYETHYLENE GLYCOL 3350 119 GM BTL PO SCH (09:46)
[2020-12-26] MEDS: CALCIUM ACETATE 667 MG CAPSULE (FP) PO SCH ×3 (09:46→17:27)
[2020-12-26] MEDS: metoPROLOL SUCCINATE 25 MG TAB.SR.24H (FP) PO SCH ×2 (09:47→21:59)
[2020-12-26 11:26] LABS: PLATELET ESTIMATE NORMAL
[2020-12-26] MEDS ORDERED: PT OWN MED DRAWER 7, Y5N ONE (21:02)
[2020-12-27] MEDS ORDERED: SODIUM CHLORIDE 250 ML IV PRN (07:14)
[2020-12-27] MEDS ORDERED: EPOETIN ALFA-EPBX 10,000 UNIT/ML VIAL SQ ONE (08:00)
[2020-12-27 08:32] LABS: HEMATOCRIT 26.7 % (32.4-45.2); HEMOGLOBIN 8.4 GM/dL (10.7-15.3); MCH 23.1 pg (25.7-33.7); MCHC 31.5 g/dl (32.0-36.0); MEAN CELL VOLUME 73.1 fl (80-96); MEAN PLT VOLUME 11.6 fl (7.5-11.1); PLATELET COUNT 155 K/MM3 (134-434); RBC 3.65 M/mm3 (3.60-5.2); RDW 20.7 % (11.6-15.6); WHITE BLOOD COUNT 9.9 K/mm3 (4.0-10.0)
[2020-12-27 08:51] LABS: CALCIUM 8.5 mg/dL (8.5-10.1)
[2020-12-27 08:54] LABS: CREATININE 4.6 mg/dL (0.55-1.3)
[2020-12-27 08:55] LABS: PHOSPHOROUS 2.3 mg/dL (2.5-4.9)
[2020-12-27] MEDS: ASPIRIN COATED 81 MG TABLET.EC PO SCH (10:43)
[2020-12-27] MEDS: CALCIUM ACETATE 667 MG CAPSULE (FP) PO SCH ×2 (10:43→11:48)
[2020-12-27] MEDS: POLYETHYLENE GLYCOL 3350 119 GM BTL PO SCH (10:44)
[2020-12-27] MEDS: metoPROLOL SUCCINATE 25 MG TAB.SR.24H (FP) PO SCH ×2 (10:44→21:32)
[2020-12-28 07:40] LABS: BLOOD UREA NITROGEN 9.5 mg/dL (7-18); CALCIUM 8.2 mg/dL (8.5-10.1)
[2020-12-28 07:43] LABS: CREATININE 0.6 mg/dL (0.55-1.3)
[2020-12-28 07:44] LABS: PHOSPHOROUS 3.4 mg/dL (2.5-4.9)
[2020-12-28 07:45] LABS: BILIRUBIN,TOTAL 0.9 mg/dL (0.2-1); TOT PROT 6.4 g/dl (6.4-8.2)
[2020-12-28] MEDS: ASPIRIN COATED 81 MG TABLET.EC PO SCH (10:56)
[2020-12-28] MEDS: metoPROLOL SUCCINATE 25 MG TAB.SR.24H (FP) PO SCH ×2 (10:56→21:26)
[2020-12-28] MEDS: POLYETHYLENE GLYCOL 3350 119 GM BTL PO SCH (10:56)
[2020-12-28] MEDS ORDERED: FUROSEMIDE 40 MG TABLET (FP) PO ONE (14:02)
[2020-12-29 05:48] VITALS: PULSE 72; TEMP 99
[2020-12-29 06:57] LABS: BASO % 1.3 % (0-2.0); HEMATOCRIT 25.3 % (32.4-45.2); HEMOGLOBIN 8.1 GM/dL (10.7-15.3); LYMPH % 8.5 % (8-40); MCH 23.3 pg (25.7-33.7); MCHC 31.8 g/dl (32.0-36.0); MEAN CELL VOLUME 73.1 fl (80-96); MEAN PLT VOLUME 12.3 fl (7.5-11.1); MONO % 10.4 % (3.8-10.2); NEUT % 78.8 % (42.8-82.8); PLATELET COUNT 148 K/MM3 (134-434); RBC 3.46 M/mm3 (3.60-5.2); RDW 20.9 % (11.6-15.6)
[2020-12-29 07:16] LABS: BLOOD UREA NITROGEN 32.2 mg/dL (7-18)
[2020-12-29 07:17] LABS: ALBUMIN 2.8 g/dl (3.4-5.0); CALCIUM 8.5 mg/dL (8.5-10.1)
[2020-12-29 07:20] LABS: CREATININE 4.2 mg/dL (0.55-1.3)
[2020-12-29 07:21] LABS: BILIRUBIN,TOTAL 0.6 mg/dL (0.2-1); TOT PROT 5.5 g/dl (6.4-8.2)
[2020-12-29 08:48] VITALS: BP 131/66
[2020-12-29] MEDS: metoPROLOL SUCCINATE 25 MG TAB.SR.24H (FP) PO SCH (09:07)
[2020-12-29] MEDS: ASPIRIN COATED 81 MG TABLET.EC PO SCH (09:07)
[2020-12-29] MEDS: POLYETHYLENE GLYCOL 3350 119 GM BTL PO SCH (09:07)
[2020-12-29] MEDS ORDERED: guaiFENesin/D-METHORPHAN HB 10 ML UNIT-DOSE CUPS PO PRN (09:59)
[2020-12-29 11:10] LABS: ANISOCYTOSIS 1+; MACROCYTOSIS 0; PLATELET ESTIMATE DECREASED
== END 2020-12-29 14:32 | disposition home or self-care (01) | DRG 682 ==
LOC: JER 12:37 → JERBED 14:37 → J2W 20:32 → J6S 12-10 14:40 → J4W 12-10 19:07
PROVIDERS: ADMIT Family Medicine; ATTEND Family Medicine
PROC: 30233N1 Transfusion of Nonautologous Red Blood Cells into Peripheral Vein, Percutaneous Approach (ICD-10-PCS; 2020-12-08)
PROC: 0T9030Z Drainage of Right Kidney with Drainage Device, Percutaneous Approach (ICD-10-PCS; 2020-12-10)
PROC: 02H633Z Insertion of Infusion Device into Right Atrium, Percutaneous Approach (ICD-10-PCS; principal; 2020-12-22 15:00)
DX: N17.9 Acute kidney failure, unspecified (principal); I50.33 Acute on chronic diastolic (congestive) heart failure; R57.1 Hypovolemic shock; I13.2 Hypertensive heart and chronic kidney disease with heart failure and with stage 5 chronic kidney disease, or end stage renal disease; E87.2 Acidosis; N20.2 Calculus of kidney with calculus of ureter; I24.8 Other forms of acute ischemic heart disease; N18.6 End stage renal disease; N13.6 Pyonephrosis; D64.9 Anemia, unspecified; I27.20 Pulmonary hypertension, unspecified; I48.0 Paroxysmal atrial fibrillation
CPT/HCPCS: 36415; 36430; 36600; 50432; 71045-TC-FY; 71250-TC; 74176-TC; 76775-TC; 78582-TC; 80048; 80053; 80061; 81003; 82248; 82272; 82310; 82436; 82550; 82570; 82728; 82803; 82962; 83010; 83036; 83516; 83520; 83540; 83550; 83605; 83690; 83721; 83735; 83880; 83970; 84100; 84133; 84155; 84156; 84165; 84300; 84443; 84484; 85025; 85027; 85610; 85730; 86038; 86160; 86162; 86225; 86256; 86704; 86706; 86707; 86708; 86709; 86803; 86850; 86880; 86900; 86901; 86922; 87040; 87086; 87102; 87116; 87186; 87205; 87206; 87210; 87340; 93005; 93010; 93306-TC; 93970-TC; 94760; 97116-GP; 97161-GP; 99285-25; A9539; A9540; C9803; J0131; J0282; J1644; P9047; P9058; Q5106; U0003; U0005

== ENCOUNTER 2021-02-06 05:16 | Day surgery (SDC) | payer OTHER ==
[2021-02-05 15:09] VITALS: BMI 30.2
[2021-02-06 09:36] LABS: INR 1.25 (0.83-1.09); PROTHROMBIN TIME (PATIENT) 15.3 SEC (9.7-13.0)
[2021-02-06 09:37] LABS: BASO % 1.3 % (0-2.0); EOS % 0.3 % (0-4.5); HEMATOCRIT 30.7 % (32.4-45.2); HEMOGLOBIN 9.1 GM/dL (10.7-15.3); LYMPH % 7.6 % (8-40); MCH 21.3 pg (25.7-33.7); MCHC 29.7 g/dl (32.0-36.0); MEAN CELL VOLUME 71.9 fl (80-96); MEAN PLT VOLUME 10.9 fl (7.5-11.1); MONO % 11.2 % (3.8-10.2); NEUT % 79.6 % (42.8-82.8); PLATELET COUNT 278 10^3/uL (134-434); RBC 4.27 M/mm3 (3.60-5.2); RDW 18.5 % (11.6-15.6); WHITE BLOOD COUNT 8.5 K/mm3 (4.0-10.0)
[2021-02-06 11:20] VITALS: PULSE 70
[2021-02-06 11:49] LABS: ANISOCYTOSIS 0; MACROCYTOSIS 0; PLATELET ESTIMATE NORMAL
[2021-02-06 14:41] VITALS: BP 107/56; TEMP 98
== END 2021-02-06 14:22 | disposition home or self-care (01) ==
LOC: JRADIR 05:16
PROVIDERS: ATTEND Urology
PROC: 0T9630Z Drainage of Right Ureter with Drainage Device, Percutaneous Approach (ICD-10-PCS; principal; 2021-02-06)
DX: N13.2 Hydronephrosis with renal and ureteral calculous obstruction (principal)
CPT/HCPCS: 36415; 50693; 50695; 85025; 85610; C1729; C1769

== ENCOUNTER → 2021-02-11 | Day surgery (SDC) | payer OTHER | END | disposition home or self-care (01) | LOC: JRADIR 10:50 | PROVIDERS: ATTEND Radiology Neuroradiology | PROC: BT14YZZ Fluoroscopy of Kidneys, Ureters and Bladder using Other Contrast (ICD-10-PCS; principal; 2021-02-11) | DX: N13.30 Unspecified hydronephrosis (principal) | CPT/HCPCS: 50431 ==